=== PATIENT | female | born 1960 | race Two or more races ===

== ENCOUNTER → 2016-07-15 | Outpatient (CLI) | payer OTHER ==
[~2016-07-15] MED LIST: ALBU18HF INHALATION; AUG875 PO; CITA20TA6 PO; HYDR-902 PO; IBUP800T25 PO; IPRA3AMP HHN; LORA1TAB PO; MED4DP PO; TEMA15CA6 PO
--- NOTE | 2016-07-15 09:55 | RADRPT ---
PROCEDURE: XR Knee. CLINICAL INDICATION: Left knee pain TECHNIQUE: 4 views of the left knee are available for review. COMPARISON: None available FINDINGS: There is no evidence of acute fracture. There is severe medial femorotibial compartment osteoarthro sis with bone on bone articulation. There is mild to moderate lateral and patellofemoral compartmen t osteoarthrosis with marginal osteophyte formation. There is a small knee joint effusion. The sof t tissues are otherwise unremarkable. IMPRESSION: 1. No radiographic evidence of acute osseous abnormality noting tricompartmental osteoarthrosis, sev ere and predominant within the medial femorotibial compartment. RPTAT: UU .Suraj Fraga MD, MD Date Time Electronically viewed and signed by .Suraj Fraga MD, on 07/15/2016 09:55 .K/
== END | disposition home or self-care (01) ==
LOC: HKI 09:06
PROVIDERS: ATTEND Orthopaedic Surgery
DX: M25.562 Pain in left knee (principal); M17.12 Unilateral primary osteoarthritis, left knee; E66.01 Morbid (severe) obesity due to excess calories
CPT/HCPCS: 73564; Z7500; G0463

== ENCOUNTER → 2016-08-31 | Outpatient (CLI) | payer OTHER | END | disposition home or self-care (01) | LOC: HKI 10:26 | PROVIDERS: ATTEND Orthopaedic Surgery | DX: M25.562 Pain in left knee (principal); M17.12 Unilateral primary osteoarthritis, left knee; E66.01 Morbid (severe) obesity due to excess calories | CPT/HCPCS: 20610; J7327 ==

== ENCOUNTER 2016-10-30 18:54 | Emergency (ER) | payer OTHER ==
[~2016-10-30] VITALS: Ht 149.9 cm; Wt 120.0 kg
[2016-10-30 18:57] VITALS: Ht 149.9 cm; Wt 120.0 kg
[2016-10-30] MEDS ORDERED: ALBUTEROL 0.5% (NEB) 2.5 MG/0.5 ML AMP INH STA (19:18)
[2016-10-30] MEDS ORDERED: METHYLPREDNISOLONE 125 MG INJ IV STA (19:18)
[2016-10-30] MEDS: HYDROCODONE/APAP (10/325) TAB PO ONE ×2 (21:06→22:15)
[2016-10-30] MEDS ORDERED: PRED20TA PO (21:25)
[2016-10-30] MEDS ORDERED: ALBU8.5H3 INH (21:25)
[2016-10-30] MEDS ORDERED: AZIT250T94 PO (21:25)
--- NOTE | 2016-10-30 21:27 | RADRPT ---
PROCEDURE: XR Chest. CLINICAL INDICATION: Asthma exacerbation. TECHNIQUE: 2 frontal views of the chest. COMPARISON: Chest dated 03/20/2015 FINDINGS: Cardiomegaly. Pulmonary vascular markings are accentuated by patient body habitus and portable techn ique. No signs of pleural fluid or pneumothorax are seen. Old right rib fracture is seen. The osseou s structures and soft tissues are unremarkable. IMPRESSION: No evidence for active cardiopulmonary disease. RPTAT: UU Physician Clary Date Time Electronically viewed and signed by Physician Clary on 10/30/2016 21:27 RS/
[2016-10-30] MEDS ORDERED: ACETAMINOPHEN 325/HYDROC 7.5 15 ML CUP PO ONE (21:30)
--- NOTE | 2016-10-30 21:30 | ERD ---
ER Documentation Chief Complaint Date/Time DATE: 10/30/16 TIME: 21:26 Chief Complaint SOB x 4 days, pt has hx asthma, moderate distress audible wheezing HPI This is a 56-year-old female with a history of asthma complains of 4 days of cough with nonproductive sputum and having some asthma exacerbation today with wheezing. No chest pain no fever she has some mild nasal congestion no sneezing. She says she is having some increased work of breathing this afternoon that was not resolved with her usual breathing treatments. ROS All systems reviewed and are negative except as per history of present illness. Medications Home Meds Active Scripts Prednisone* (Prednisone*) 20 Mg Tab, 60 MG PO DAILY for 5 Days, TAB Prov:JOE AUGUST DO 10/30/16 Albuterol Sulfate* (Proair HFA*) 8.5 Gm Hfa.aer.ad, 2 PUFF INH Q4, #1 INHALER Prov:JOE AUGUST DO 10/30/16 Azithromycin* (Zithromax*) 250 Mg Tablet, 250 MG PO .GilbertPACK DIRECTED, #6 TAB TAKE 500 MG (2 TABS) THE FIRST DAY THEN 250 MG (1 TAB) DAYS 2-5 Prov:JOE AUGUST DO 10/30/16 Hydrocodone/Acetaminophen (Cameron 10-325 Tablet) 1 Each Tablet, 1 TAB PO Q6H Y for PAIN, #20 TAB Prov:DELMY LIMA PA-C 12/07/15 Ibuprofen* (Motrin*) 800 Mg Tab, 800 MG PO Q6, #30 TAB Prov:DELMY LIMA PA-C 12/07/15 Lorazepam* (Lorazepam*) 1 Mg Tablet, 1 MG PO Q8 Y for ANXIETY, #20 TAB Prov:JOE AUGUST DO 07/19/15 Methylprednisolone* (Medrol* DOSE PACK) 4 Mg/Dose-Pack Tab.ds.pk, 4 MG PO . DIRECTED, #1 PACKET Prov:CUONG SILVA 03/20/15 Ipratropium-Albuterol (Ipratropium-Albuterol) 3 Ml Nebu, 3 ML HHN Q6H RESP THERAPY for 14 Days Prov:CUONG SILVA 03/20/15 Amoxicillin-Clavulanate K* (Augmentin*) 875 Mg Tab, 875 MG PO BID for 5 Days, TAB Prov:CUONG SILVA 03/20/15 Reported Medications Citalopram Hydrobromide* (Citalopram Hydrobromide*) 20 Mg Tablet, 20 MG PO DAILY , #30 TAB 07/19/15 Albuterol Sulfate* (Ventolin HFA*) 18 Gm Hfa.aer.ad, 2 PUFF INHALATION Q4H, #1 INHALER 07/19/15 Temazepam* (Restoril*) 15 Mg Capsule, 15 MG PO HS Y for INSOMNIA, CAP 03/16/15 Allergies Allergies: Coded Allergies: No Known Allergy (Unverified , 12/07/15) PMhx/Soc History of Surgery: No Anesthesia Reaction: No Hx Neurological Disorder: No Hx Respiratory Disorders: Yes (asthma) Hx Cardiac Disorders: Yes (HTN) Hx Psychiatric Problems: Yes (DEPRESSION, ANXIETY) Hx Miscellaneous Medical Probl: Yes (OSTEOARTHRITIS ) Hx Alcohol Use: No Hx Substance Use: No Hx Tobacco Use: No Smoking Status: Never smoker FmHx Family History: No coronary disease Physical Exam Vitals Vital Signs Date Time Temp Pulse Resp B/P Pulse Ox O2 Delivery O2 Flow Rate FiO2 10/30/16 20:56 105 20 126/56 98 Room Air 10/30/16 19:35 91 22 100 21 10/30/16 18:57 98.4 95 32 463/93 98 Physical Exam Const: Well-developed, well-nourished Head: Atraumatic, normocephalic Eyes: Normal Conjunctiva, PERRLA, EOMI, normal sclera, no nystagmus ENT: Normal External Ears, Nose and Mouth, moist mucus membranes. Neck: Full range of motion. No meningismus, no lymphadenopathy. Resp: [Bilateral diffuse expiratory wheezes mild decrease in air movement no increased work of breathing cardio: Regular rate and rhythm, no murmurs, S1 S2 present Abd: Soft, non tender x 4, non distended. Normal bowel sounds, no guarding or rebound, no pulsitile abdominal masses or bruits Skin: No petechiae or rashes, no ecchymosis , no maculopapular rash Back: No midline or flank tenderness Ext: No cyanosis, or edema, FROM x 4, normal inspection, neurovascularly intact x 4 Neur: Awake and alert, STR 5/5 x 4, sensation intact x 4, no focal findings, cerebellum intact Psych: Normal Mood and Affect Results 24 hrs Current Medications Medications (Trade) Dose Ordered Sig/Yaa Route PRN Reason Start Time Stop Time Status Last Admin Dose Admin Albuterol (Proventil 0.5% (Neb)) 10 mg ONCE STAT INH 10/30/16 19:18 10/30/16 19:20 DC 10/30/16 19:34 Methylprednisolone Sodium Succinate (Solu-Medrol) 125 mg ONCE STAT IV 10/30/16 19:18 10/30/16 19:20 DC 10/30/16 19:24 Acetaminophen/ Hydrocodone Bitart (Cameron (10/325)) 1 tab ONCE ONCE PO 10/30/16 21:30 10/30/16 21:31 Acetaminophen/ Hydrocodone Bitart (Lortab Liq) 15 ml ONCE ONCE PO 10/30/16 21:30 10/30/16 21:31 10/30/16 21:11 Procedures/MDM PROCEDURE: XR Chest. CLINICAL INDICATION: Asthma exacerbation. TECHNIQUE: 2 frontal views of the chest. COMPARISON: Chest dated 03/20/2015 FINDINGS: Cardiomegaly. Pulmonary vascular markings are accentuated by patient body habitus and portable technique. No signs of pleural fluid or pneumothorax are seen. Old right rib fracture is seen. The osseous structures and soft tissues are unremarkable. IMPRESSION: No evidence for active cardiopulmonary disease. RPTAT: UU Physician Clary Date Time Electronically viewed and signed by Physician Clary on 10/30/2016 21:27 RS/ CC: JOE AUGUST DO Patient received breathing treatments, Solu-Medrol and is feeling much better. Sats are 98% room air lungs sounds are better with good air movement minimal to no wheezing No evidence of pneumonia on chest x-ray treat for asthmatic bronchitis Departure Diagnosis: Primary Impression: Asthmatic bronchitis Asthma severity: unspecified severity Asthma complication type: with acute exacerbation Qualified Code: J45.901 - Asthmatic bronchitis with acute exacerbation, unspecified asthma severity Condition: Stable Patient Instructions: What Is Bronchitis? JOE AUGUST DO Oct 30, 2016 21:30
[2016-10-30] MEDS ORDERED: HYDR15SO8 PO (22:25)
[2016-10-30 23:20] VITALS: BP 120/60; PULSE 89; RESP 18; TEMP 98
== END 2016-10-30 23:20 | disposition home or self-care (01) ==
LOC: E/R 18:54
DX: J45.901 Unspecified asthma with (acute) exacerbation (principal); I10 Essential (primary) hypertension
CPT/HCPCS: 71010; 93005; 94644; 96374; J2930; Z7502; Z7610

== ENCOUNTER 2017-02-19 19:01 | Emergency (ER) | END 2017-02-19 23:30 | disposition home or self-care (01) ==

== ENCOUNTER 2018-02-02 17:32 | Inpatient (IN) | payer OTHER ==
[~2018-02-02] VITALS: Ht 167.6 cm; Wt 96.6 kg
[~2018-02-02 17:32] MED LIST changes: +AMLO-147 PO; -AUG875 PO; -CITA20TA6 PO; +CYAN500T46 PO; -HYDR-902 PO; -IBUP800T25 PO; -IPRA3AMP HHN; +IPRA3AMP29 HHN; -LORA1TAB PO; -MED4DP PO; +MONT10TA24 PO; +SERT25TA83 PO
[2018-02-02] MEDS ORDERED: morphine 4 MG/ML VIAL IV STA ×2 (18:31→22:05)
[2018-02-02] MEDS ORDERED: ONDANSETRON 4 MG INJ IV STA (18:31)
[2018-02-02] MEDS ORDERED: SOD CHLORIDE 0.9% 1,000 ML IV STA (18:31)
[2018-02-02] MEDS ORDERED: PIPER-TAZO 3.375 GM IV (PMX) 100 ML IVPB STA (22:05)
[2018-02-02] MEDS ORDERED: VANCOMYCIN 1 GM (PMX) 250 ML IVPB STA (22:05)
--- NOTE | 2018-02-02 22:33 | ERD ---
ER Documentation Chief Complaint Chief Complaint Complains of bilater knee pain x3 days HPI 57-year-old female status post recent left knee surgery presenting with worsening left knee pain for the past 3 days. She has not noticed any increased swelling. She has been doing wound care as instructed by her physician. She is not putting any weight on that leg as instructed. She denies any fevers or chills but is having severe pain that is not improving with her medications. The pain is aching, throbbing, in her left knee and lower leg. Rates the pain as a 9 out of 10. No alleviating factors. Exacerbated by bending her knee. Surgery was done by Dr. Lee. CARLYLE All systems reviewed and are negative except as per history of present illness. Medications Home Meds Active Scripts Ipratropium-Albuterol (Ipratropium-Albuterol) 3 Ml Nebu, 3 ML HHN Q6H RESP THERAPY for 14 Days Prov:CUONG SILVA 03/20/15 Reported Medications Cyanocobalamin* (Vitamin B12*) 500 Mcg Tab, 5000 MCG PO DAILY, TAB 01/24/18 Sertraline Hcl* (Sertraline Hcl*) 25 Mg Tablet, 25 MG PO DAILY, #30 TAB 01/24/18 Montelukast Sodium* (Montelukast Sodium*) 10 Mg Tablet, 10 MG PO QHS, #30 TAB 01/24/18 Amlodipine Besylate* (Amlodipine Besylate*) 10 Mg Tablet, 10 MG PO DAILY, #30 TAB 01/24/18 Albuterol Sulfate* (Ventolin HFA*) 18 Gm Hfa.aer.ad, 2 PUFF INHALATION Q4H, #1 INHALER 07/19/15 Temazepam* (Restoril*) 15 Mg Capsule, 15 MG PO HS PRN for INSOMNIA, CAP 03/16/15 Allergies Allergies: Coded Allergies: No Known Allergy (Unverified , 12/07/15) PMhx/Soc History of Surgery: Yes (GASTRIC BYPASS 2017, L KNEE SURGERY, B BREAST REDUCTION) Anesthesia Reaction: No Hx Neurological Disorder: No Hx Respiratory Disorders: Yes (ASTHMA) Hx Cardiac Disorders: Yes (HTN) Hx Psychiatric Problems: No Hx Miscellaneous Medical Probl: Yes (asthma, HTN, depression, anxiety, obesity, L knee OA) Hx Alcohol Use: No Hx Substance Use: No Hx Tobacco Use: No Smoking Status: Never smoker FmHx Family History: No diabetes Physical Exam Vitals Vital Signs Date Temp Pulse Resp B/P (MAP) Pulse Ox O2 O2 Flow FiO2 Time Delivery Rate 02/02/18 97.5 84 21 156/72 98 Room Air 21:36 (100) 02/02/18 98.1 82 20 165/101 100 Room Air 21:27 (122) 02/02/18 98.3 62 20 138/63 96 17:37 (88) Physical Exam Const: No acute distress Head: Atraumatic Eyes: Normal Conjunctiva ENT: Normal External Ears, Nose and Mouth. Neck: Full range of motion. No meningismus. Resp: Clear to auscultation bilaterally Cardio: Regular rate and rhythm, no murmurs Abd: Soft, non tender, non distended. Normal bowel sounds Skin: No petechiae or rashes Back: No midline or flank tenderness Ext: No cyanosis, or edema. There is minimal left lower extremity pitting edema. The surgical scar appears well, healing well, no discharge or dehiscence. There is surrounding erythema that extends down to just above the left ankle. There is no calf tenderness. 2+ DP and PT pulses. Limited range of motion of the knee secondary to pain. No significant tenderness to palpation of the knee joint. Neur: Awake and alert Psych: Normal Mood and Affect Result Diagram: 02/02/18184902/02/181849 Results 24 hrs Laboratory Tests Test 02/02/18 18:50 White Blood Count 10.6 10^3/ul Red Blood Count 3.89 10^6/ul Hemoglobin 10.7 g/dl Hematocrit 33.0 % Mean Corpuscular Volume 84.8 fl Mean Corpuscular Hemoglobin 27.5 pg Mean Corpuscular Hemoglobin Concent 32.4 g/dl Red Cell Distribution Width 13.1 % Platelet Count 294 10^3/UL Mean Platelet Volume 9.9 fl Immature Granulocytes % 0.600 % Neutrophils % 73.7 % Lymphocytes % 16.0 % Monocytes % 8.1 % Eosinophils % 1.1 % Basophils % 0.5 % Nucleated Red Blood Cells % 0.0 /100WBC Immature Granulocytes # 0.060 10^3/ul Neutrophils # 7.8 10^3/ul Lymphocytes # 1.7 10^3/ul Monocytes # 0.9 10^3/ul Eosinophils # 0.1 10^3/ul Basophils # 0.1 10^3/ul Nucleated Red Blood Cells # 0.0 10^3/ul Erythrocyte Sedimentation Rate 60 mm/Hr Prothrombin Time 13.8 Sec Prothrombin Time Ratio 1.1 INR International Normalized Ratio 1.05 Activated Partial Thromboplast Time 35.1 Sec Sodium Level 139 mmol/L Potassium Level 3.9 mmol/L Chloride Level 99 mmol/L Carbon Dioxide Level 30 mmol/L Anion Gap 10 Blood Urea Nitrogen 13 mg/dl Creatinine 0.53 mg/dl Est Glomerular Filtrat Rate mL/min > 60 mL/min Glucose Level 100 mg/dl Calcium Level 9.1 mg/dl Total Bilirubin 0.5 mg/dl Direct Bilirubin 0.00 mg/dl Indirect Bilirubin 0.5 mg/dl Aspartate Amino Transf (AST/SGOT) 18 IU/L Alanine Aminotransferase (ALT/SGPT) 12 IU/L Alkaline Phosphatase 77 IU/L C-Reactive Protein 7.3 mg/dl Total Protein 7.2 g/dl Albumin 3.9 g/dl Globulin 3.30 g/dl Albumin/Globulin Ratio 1.18 Current Medications Medications Dose Sig/Yaa Start Time Status Last (Trade) Ordered Route PRN Stop Time Admin Dose Reason Admin Sodium 1,000 ml @ Q1H STAT 02/02/18 DC 02/02/18 Chloride 1,000 mls/hr IV 18:31 19:12 02/02/18 19:30 Morphine 4 mg ONCE STAT 02/02/18 DC 02/02/18 Sulfate IV 18:31 19:11 (morphine) 02/02/18 18:33 Ondansetron 4 mg ONCE STAT 02/02/18 DC 02/02/18 HCl (Zofran IV 18:31 19:11 Inj) 02/02/18 18:33 Morphine 4 mg ONCE STAT 02/02/18 DC 02/02/18 Sulfate IV 22:05 22:23 (morphine) 02/02/18 22:07 Vancomycin 250 ml @ ONCE STAT 02/02/18 HCl 125 mls/hr IVPB 22:05 02/03/18 00:04 Piperacillin 100 ml @ ONCE STAT 02/02/18 DC 02/02/18 Sod/ 200 mls/hr IVPB 22:05 22:23 Tazobactam 02/02/18 Sod 22:34 Ondansetron 4 mg BRIDGE ORDER 02/02/18 HCl (Zofran PRN IV 23:00 Inj) NAUSEA AND/OR 02/03/18 VOMITING 22:59 650 mg ER BRIDGE 02/02/18 Acetaminophen PRN PO MILD 23:00 (Tylenol PAIN(1-3)OR 02/03/18 Tab) ELEVATED TEMP 22:59 Procedures/MDM EMERGENT LABS AND DIAGNOSTIC STUDIES: Lab Results above were reviewed and interpreted by me. CBC: Mild anemia, no evidence of infection CMP: No evidence of electrolyte abnormality, renal failure, hypoglycemia, liver failure, or biliary obstruction ESR and CRP elevated, concerning for infection Radiology Results as interpreted by Radiology below were reviewed by Chlio Wilson MD: X-ray left knee shows intact hardware, no effusions or other abnormalities Left lower extremity venous ultrasound shows no evidence of DVT Initial Nursing notes reviewed. Previous Medical Records requested via the Electronic Health Record. EMERGENCY DEPARTMENT COURSE / MEDICAL DECISION MAKING: Patient is presenting with most likely postop cellulitis of the left lower extremity. I have a lower suspicion for septic joint. She is afebrile with stable vitals. Her labs did not show any evidence of leukocytosis. Her ESR and CRP are mildly elevated, likely secondary to her cellulitis. She was started on IV vancomycin and Zosyn. She will be admitted for observation for IV antibiot ics and improvement of her symptoms. Dr. lee was notified but is not concerned about septic joint at this time. Accepting Care Team: Current data and ongoing care discussed. Time: Time of admission Primary Provider: Dr. Paulino Consulting: Dr. Lee Outstanding Data: none Departure Diagnosis: Primary Impression: Cellulitis, wound, post-operative Additional Impression: Left leg cellulitis Condition: SERGE Alan MD Feb 02, 2018 22:33
[2018-02-02] MEDS ORDERED: ACETAMINOPHEN 325 MG TAB PO PRN (23:00)
[2018-02-02] MEDS ORDERED: ONDANSETRON 4 MG INJ IV PRN (23:00)
[2018-02-02] MEDS ORDERED: ASPI-535 PO (23:35)
[2018-02-02] MEDS ORDERED: TRAM50TA PO (23:35)
[2018-02-02] MEDS ORDERED: OXYC5CAP17 PO (23:35)
[2018-02-02] MEDS ORDERED: GABA100C14 PO (23:35)
[2018-02-02] MEDS ORDERED: CELE200C PO (23:39)
[2018-02-02 23:45] VITALS: BP 118/57; PULSE 87; RESP 18
--- NOTE | 2018-02-02 23:57 | HP ---
Date/Time of Note Date/Time of Note DATE: 02/02/18 TIME: 23:57 Assessment/Plan Lines/Catheters IV Catheter Type (from Nrsg): Saline Lock Assessment/Plan Assessment/Plan 1. Possible postop infection of left knee -Patient underwent left total knee arthroplasty for severe osteoarthritis on 01/24/18 here at [facility] -X-ray without acute findings -IV antibiotic -Awaiting Ortho eval -Pain management -Consider ID consult 2. Hypertension: Continue home meds 3. Asthma: No sign of acute exacerbation 4. Depression: Continue sertraline HPI/ROS Admit Date/Time Admit Date/Time Feb 02, 2018 at 22:32 Hx of Present Illness This is a 57-year-old female with a history of hypertension, asthma, depression, gastric bypass surgery who presented to ER complaining of left knee swelling and tenderness. She has a history of severe osteoarthritis of the left knee and underwent left total knee arthroplasty just a little over a week ago. Over the past 4 days or so, she has noticed a progressively worsening swelling of the left knee as well as tenderness in the area is also warm to touch. Here in the ER today, x-ray of the left knee shows no acute findings. Her vitals are been stable, afebrile and white count is 10,000. PMH/Family/Social Past Medical History Coded Allergies: No Known Allergy (Unverified , 02/02/18) Social History Smoking Status: Never smoker Exam/Review of Systems Vital Signs Vitals Vital Signs Date Temp Pulse Resp B/P (MAP) Pulse Ox O2 O2 Flow FiO2 Time Delivery Rate 02/02/18 87 18 156/84 99 Room Air 23:13 (108) 02/02/18 97.5 21:36 Medications Medications Current Medications Vancomycin HCl 250 ml @ 125 mls/hr ONCE STAT IVPB Last administered on 02/02/18at 23:28; Admin Dose 125 MLS/HR; Start 02/02/18 at 22:05; Stop 02/03/18 at 00:04 Ondansetron HCl (Zofran Inj) 4 mg BRIDGE ORDER PRN IV NAUSEA AND/OR VOMITING; Start 02/02/18 at 23:00; Stop 02/03/18 at 22:59 Acetaminophen (Tylenol Tab) 650 mg ER BRIDGE PRN PO MILD PAIN(1-3)OR ELEVATED TEMP; Start 02/02/18 at 23:00; Stop 02/03/18 at 22:59 Results Result Diagram: 02/02/18 1850 02/02/18 1850 Results 24 hrs Laboratory Tests Test 02/02/18 18:50 White Blood Count 10.6 Red Blood Count 3.89 L Hemoglobin 10.7 L Hematocrit 33.0 L Mean Corpuscular Volume 84.8 Mean Corpuscular Hemoglobin 27.5 L Mean Corpuscular Hemoglobin Concent 32.4 Red Cell Distribution Width 13.1 Platelet Count 294 # Mean Platelet Volume 9.9 Immature Granulocytes % 0.600 H Neutrophils % 73.7 Lymphocytes % 16.0 Monocytes % 8.1 Eosinophils % 1.1 Basophils % 0.5 Nucleated Red Blood Cells % 0.0 Immature Granulocytes # 0.060 H Neutrophils # 7.8 H Lymphocytes # 1.7 Monocytes # 0.9 Eosinophils # 0.1 Basophils # 0.1 Nucleated Red Blood Cells # 0.0 Erythrocyte Sedimentation Rate 60 H Prothrombin Time 13.8 Prothrombin Time Ratio 1.1 INR International Normalized Ratio 1.05 Activated Partial Thromboplast Time 35.1 H Sodium Level 139 Potassium Level 3.9 Chloride Level 99 Carbon Dioxide Level 30 Anion Gap 10 Blood Urea Nitrogen 13 Creatinine 0.53 Est Glomerular Filtrat Rate mL/min > 60 Glucose Level 100 Calcium Level 9.1 Total Bilirubin 0.5 Direct Bilirubin 0.00 Indirect Bilirubin 0.5 Aspartate Amino Transf (AST/SGOT) 18 Alanine Aminotransferase (ALT/SGPT) 12 L Alkaline Phosphatase 77 C-Reactive Protein 7.3 H Total Protein 7.2 Albumin 3.9 Globulin 3.30 H Albumin/Globulin Ratio 1.18 ANDRIA JONES MD Feb 02, 2018 23:57
[2018-02-03] MEDS ORDERED: traMADol 50 MG TAB PO PRN
[2018-02-03] MEDS ORDERED: NACL 0.9% 3 ML SYG IV SCH
[2018-02-03] MEDS ORDERED: ALBUTEROL HFA 8 GM INHALER INH PRN
[2018-02-03] MEDS ORDERED: VANCOMYCIN IV PER PHARMACY XX SCH
[2018-02-03 00:47] VITALS: Ht 167.6 cm; Wt 96.6 kg
--- NOTE | 2018-02-03 01:51 | NUR ---
2335 Pt received on unit via stretcher from emergency department. 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 Pt received aaox4 verbal and responsive under Dr. Paulino Vitals signs as follows BP 118/57 P 87 RR 18 T97.6 Pt denies pain at this time. Pt states chief complaints as left knee pain. Left knee and lower extremity red and swollen with pitting edema +2 large bruising and discoloration. Pt states she had surgery on 01/24/18 on her left knee her at [facility], but does not remember the name of the doctor. Pt reports history of Gastric Bypass in June of 2017 and breast reduction in 2007. 2345 No other significant findings or skin issues upon completion of body assessment. 0000 Admission questions completed, SCD applied, pt tolieted. Pt oriented to [facility] safety protocols including non skid socks, hourly rounding and the use of the bed alarm. Pt educated on the importance for calling for assistance when getting oob. Pt states she uses walker at home. Pt denies any further needs at this time. Nursing will continue to monitor. Addendum: 02/03/18 at 0702 by BHUPINDER NUNEZ RN 0300 Pt states tramadol and roxicodone make her nasueas and are not effective at treating her pain. Dr paulino contacted, order for morphine 3 mg q 3 given prn, but pt did not receive relief new orders for dilaudid mg q3 hrs recieved. Pt stated total relief of pain after 30 minutes. 0600 All scheduled medications administered w/o difficulty. Nursing will continue to monitor. 0700 Nursing will endorse to day shift to ensure continuity of care.
[2018-02-03] MEDS: ALBUTEROL/IPRATROPIUM (NEB) 3 ML AMP HHN SCH ×4 (02:00→19:41)
[2018-02-03 02:25] VITALS: BP 134/60; PULSE 77; RESP 18
[2018-02-03] MEDS ORDERED: morphine 4 MG/ML VIAL IV PRN (03:30)
[2018-02-03] MEDS: HYDROmorphONE 1 MG/ML SYG IV PRN ×4 (05:08→23:14)
[2018-02-03] MEDS: PIPER-TAZO 3.375 GM IV (PMX) 100 ML IVPB SCH ×3 (05:09→22:19)
[2018-02-03] MEDS: VANCOMYCIN 1.25 GM in SOD CHLORIDE 0.9% 250 ML IVPB SCH ×2 (06:44→14:43)
[2018-02-03 07:50] VITALS: BP 153/72; PULSE 70; RESP 16
[2018-02-03] MEDS: AMLODIPINE 10 MG TAB PO SCH (09:05)
[2018-02-03] MEDS: GABAPENTIN 100 MG CAP PO SCH ×3 (09:05→20:09)
[2018-02-03] MEDS: SERTRALINE 50 MG TAB PO SCH (09:05)
[2018-02-03 14:37] VITALS: BP 136/61; PULSE 76; RESP 16
--- NOTE | 2018-02-03 18:12 | PN ---
Date/Time of Note Date/Time of Note DATE: 02/03/18 TIME: 18:10 Assessment/Plan VTE Prophylaxis Risk score (from Ns)>0 risk: 9 SCD applied (from Ns): Yes SCD contraindicated: low risk/ambulating Pharmacological prophylaxis: NA/contraindicated Pharm contraindication: low risk/ambulating Lines/Catheters IV Catheter Type (from Nrs): Saline Lock Urinary Cath still in place: No Assessment/Plan Hospital Course Hospitalist coverage Assessment and plan 1. Left knee skin and soft tissue infection. Stable improved, continue empiric antibiotics. 2. Left total knee arthroplasty status, weightbearing PT pain control if okay with Ortho 3. Chronic asthma stable 4. Chronic hypertension 5. Chronic major depression 6. Debility Subjective 02/03: Was at home and doing well. Had home health and PT visits. Ambulating. Then over the last 4 days noted some swelling pain erythema over her joint. Denies any toxicity nausea vomiting fever. Today feels better than yesterday. Objective: Vital signs stable Physical exam No pallor adenopathy Regular no murmur gallop Clear Benign Lt knee: min erythema, no warmth, mild tenderness/ edema Exam/Review of Systems Vital Signs Vitals Vital Signs Date Temp Pulse Resp B/P (MAP) Pulse Ox O2 O2 Flow FiO2 Time Delivery Rate 02/03/18 98.3 76 16 136/61 94 14:37 (86) 02/03/18 21 10:18 02/03/18 Room Air 07:50 Intake and Output 02/02/18 02/02/18 02/03/18 1515:00 23:00 07:00 IntakeIntake Total 450 ml BalanceBalance 450 ml CALDERON LAYTON MD Feb 03, 2018 18:12
--- NOTE | 2018-02-03 18:31 | NUR ---
Pt. is alert, awake and verbally responsive. Respiration are crispin and non labored. Complain of left leg pain. Pain medication given as ordered. Tolerated well. Pt. is seen by MD during this shift per patient "Doctor came in and check my legs he said its getting better." No significant changes noted. Will endorse accordingly.
[2018-02-03] MEDS: LACTOBACILLUS RHAMNOSUS CAP PO SCH (20:09)
[2018-02-03] MEDS: MONTELUKAST 10 MG TAB PO SCH (20:09)
[2018-02-03 20:15] VITALS: BP 113/56; PULSE 70; RESP 18
[2018-02-03] MEDS: VANCOMYCIN 1.5 GM in SOD CHLORIDE 0.9% 250 ML IVPB SCH (23:39)
[2018-02-03] MEDS: DOCUSATE SODIUM 100 MG CAP PO PRN (23:44)
[2018-02-04] MEDS: ALBUTEROL/IPRATROPIUM (NEB) 3 ML AMP HHN SCH ×3 (01:09→14:00)
[2018-02-04 02:30] VITALS: BP 115/58; PULSE 68; RESP 18
[2018-02-04] MEDS: PIPER-TAZO 3.375 GM IV (PMX) 100 ML IVPB SCH ×3 (05:08→21:44)
[2018-02-04] MEDS: HYDROmorphONE 1 MG/ML SYG IV PRN ×4 (05:10→20:54)
[2018-02-04] MEDS: VANCOMYCIN 1.5 GM in SOD CHLORIDE 0.9% 250 ML IVPB SCH ×3 (06:06→23:08)
--- NOTE | 2018-02-04 06:34 | NUR ---
no acute changes. remained afebrile with vss. no episode of respiratory distress. antibiotics zosyn and vanco given as ordered. pt tolerated well with no a/r noted. also medicated with Dilaudid for pain. fall precautions continued. hourly rounding done. will continue to monitor and will endorse to next shift.
[2018-02-04 08:11] VITALS: BP 121/62; PULSE 66; RESP 17
--- NOTE | 2018-02-04 08:19 | NUR ---
Vancomycin per Rx Vancomycin trough = 8.5 (drawn at 21:51) Dose = 1.25 g q8h CC: Knee infection Other antibiotics: Zosyn WBC 9.2 BUN/Scr 12/0.53 A/P: Increase to Vancomycin 1.5 grams IVPB q8h. Check trough tomorrow. Pharmacy to follow.
[2018-02-04] MEDS: LACTOBACILLUS RHAMNOSUS CAP PO SCH ×2 (09:36→20:54)
[2018-02-04] MEDS: GABAPENTIN 100 MG CAP PO SCH ×3 (09:36→20:54)
[2018-02-04] MEDS: AMLODIPINE 10 MG TAB PO SCH (09:36)
[2018-02-04] MEDS: SERTRALINE 50 MG TAB PO SCH (09:36)
[2018-02-04] MEDS: ENOXAPARIN 40 MG/0.4 ML SYG SC SCH (09:38)
[2018-02-04 15:33] VITALS: BP 125/65; PULSE 67; RESP 17
--- NOTE | 2018-02-04 15:55 | PN ---
Date/Time of Note Date/Time of Note DATE: 02/04/18 TIME: 15:53 Assessment/Plan VTE Prophylaxis Risk score (from Nsg)>0 risk: 3 SCD applied (from Ns): No SCD contraindicated: low risk/ambulating Pharmacological prophylaxis: LMWH Lines/Catheters IV Catheter Type (from Nrsg): Saline Lock Urinary Cath still in place: No Assessment/Plan Hospital Course Hospitalist coverage A/P 1. Left knee skin and soft tissue infection. Stable improved, cont empiric antibiotics. May be home on Keflex or Bactrim if okay with Ortho. 2. Left tka status, weightbearing? PT/ pain control, if ok w Ortho 3. Chronic asthma stable 4. Chronic hypertension 5. Chronic major depression 6. Debility Subjective 02/03: Was at home and doing well. Had home health and PT visits. Ambulating. Then over the last 4 days noted some swelling pain erythema over her joint. Denies any toxicity nausea vomiting fever. Today feels better than yesterday. 02/04: No fever diarrhea. Pain improved. Participated with PT. Awaiting orthopedic opinion Objective: Vital signs stable Physical exam No pallor Reg no mrg Clear Benign Lt knee: min erythema, no warmth, mild tenderness/ edema Exam/Review of Systems Vital Signs Vitals Vital Signs Date Temp Pulse Resp B/P (MAP) Pulse Ox O2 O2 Flow FiO2 Time Delivery Rate 02/04/18 98.1 67 17 125/65 94 Room Air 15:33 (85) 02/03/18 21 10:18 Intake and Output 02/03/18 02/03/18 02/04/18 1515:00 23:00 07:00 IntakeIntake Total 900 ml 600 ml 1178 ml BalanceBalance 900 ml 600 ml 1178 ml CALDERON LAYTON MD Feb 04, 2018 15:55
[2018-02-04] MEDS ORDERED: AL HYDROX/MG HYDROX/SIMETH 30 ML CUP PO PRN (16:00)
[2018-02-04] MEDS ORDERED: ALBUTEROL/IPRATROPIUM (NEB) 3 ML AMP HHN PRN (16:00)
[2018-02-04] MEDS ORDERED: ACETAMINOPHEN 325 MG TAB PO PRN (16:00)
[2018-02-04] MEDS: FAMOTIDINE 20 MG TAB PO SCH ×2 (17:58→20:54)
--- NOTE | 2018-02-04 19:00 | NUR ---
Patient on bed rest, alert and oriented, vital signs stable. Denies pain at this time. Patient out of bed with assist to the bathroom using the walker. Continue with IV antibiotics for Left knee infection, and pain medication PRN.
[2018-02-04 20:11] VITALS: BP 138/67; PULSE 73; RESP 16
[2018-02-04] MEDS: MONTELUKAST 10 MG TAB PO SCH (20:54)
[2018-02-05] MEDS: HYDROmorphONE 1 MG/ML SYG IV PRN ×3 (02:09→13:54)
[2018-02-05 02:31] VITALS: BP 125/60; PULSE 73; RESP 16
[2018-02-05] MEDS: PIPER-TAZO 3.375 GM IV (PMX) 100 ML IVPB SCH ×3 (05:32→21:43)
[2018-02-05 08:17] VITALS: BP 149/70; PULSE 75; RESP 18
[2018-02-05] MEDS: FAMOTIDINE 20 MG TAB PO SCH ×2 (08:25→20:55)
[2018-02-05] MEDS: GABAPENTIN 100 MG CAP PO SCH ×3 (08:25→20:55)
[2018-02-05] MEDS: LACTOBACILLUS RHAMNOSUS CAP PO SCH ×2 (08:25→20:56)
[2018-02-05] MEDS: AMLODIPINE 10 MG TAB PO SCH (08:26)
[2018-02-05] MEDS: SERTRALINE 50 MG TAB PO SCH (08:26)
[2018-02-05] MEDS: VANCOMYCIN 1.5 GM in SOD CHLORIDE 0.9% 250 ML IVPB SCH (08:27)
[2018-02-05] MEDS: ENOXAPARIN 40 MG/0.4 ML SYG SC SCH (08:27)
--- NOTE | 2018-02-05 11:32 | PN ---
Date/Time of Note Date/Time of Note DATE: 02/05/18 TIME: 11:32 Assessment/Plan VTE Prophylaxis Risk score (from Ns)>0 risk: 3 SCD applied (from Ns): No SCD contraindicated: other Pharmacological prophylaxis: LMWH Lines/Catheters IV Catheter Type (from [facility] Saline Lock Urinary Cath still in place: No Assessment/Plan Hospital Course SUBJECTIVE: Pain at the left knee well controlled. OBJECTIVE: Physical Exam General: Morbidly obese 57 year-old female lying in bed in no apparent distress. HEENT: Normocephalic, atraumatic. Eyes: Anicteric sclerae, conjunctivae clear. ENT: Nasal septum midline, oral mucosa moist. Neck supple, no JVD noticed. Respiratory: Bilaterally clear breath sounds. No use of accessory muscles of respiration. No adventitious breath sounds. Cardiovascular: S1, S2 heard. Regular rate and rhythm. Abdomen: Soft, nontender, and nondistended. Bowel sounds positive in all 4 quadrants. Genitourinary: Deferred. Extremities: No cyanosis, no clubbing, no edema. Peripheral pulses palpable. Left knee surgical dressing with warmth in the surrounding skin. Neurologic: Cranial nerves II through XII grossly intact. The patient is awake, alert, and oriented. Labs & Vitals per chart ASSESSMENT & PLAN 57-year-old female with history of hypertension, asthma, depression, and obesity status post gastric bypass surgery who recently had a left total knee arth roplasty on 01/24/2018. The patient came back to the hospital because of left knee swelling and tenderness, who was admitted to inpatient setting for further treatment and evaluation. 1. Left knee cellulitis at the site of left knee arthroplasty. -Continue antibiotics. -Continue pain control. -Await orthopedic surgery recommendations. 2. Asthma. -Continue inhaled bronchodilators as needed for any active bronchospasms. 3. Essential hypertension. -Continue home antihypertensives. 4. Depression. -Continue SSRIs. 5. Anxiety disorder. -Continue as needed anxiolytics. 6. Fluids, electrolytes, and nutrition. -Regular diet. 7. DVT prophylaxis. -Continue Lovenox. 8. Plan. -Continue antimicrobials. -Await clinical improvement. The patient was seen in collaboration with Dr. Stevens. Exam/Review of Systems Vital Signs Vitals Vital Signs Date Temp Pulse Resp B/P (MAP) Pulse Ox O2 O2 Flow FiO2 Time Delivery Rate 02/05/18 98.3 75 18 149/70 92 08:17 (96) 02/04/18 Room Air 15:33 02/03/18 21 10:18 Intake and Output 02/04/18 02/04/18 02/05/18 1515:00 23:00 07:00 IntakeIntake Total 267 ml 750 ml 350 ml BalanceBalance 267 ml 750 ml 350 ml DAVID RO NP Feb 05, 2018 11:32
[2018-02-05] MEDS: ONDANSETRON 4 MG INJ IV PRN (13:01)
--- NOTE | 2018-02-05 13:19 | CONS ---
DATE OF ADMISSION: 02/03/2018 DATE OF CONSULTATION: 02/05/2018 TYPE OF CONSULTATION: Infectious disease. REASON FOR CONSULTATION: Antibiotic management. HISTORY OF PRESENT ILLNESS: Sofia Metzger is a 57-year-old female who comes in with postop infection of the left knee and is being seen now for antibiotic management. Her past problems include: 1. Hypertension. 2. Asthma. 3. Depression. 4. Gastric bypass surgery. 5. Left knee arthroplasty. The patient presents to the emergency room complaining of left knee swelling and tenderness. She has a history of osteoarthritis of left knee and she underwent left total knee arthroplasty over a week ago. Four days prior to admission, she noticed progressively worsening swelling of the left knee as well as tenderness in the area which is also warm to the touch. In the emergency room, her x-ray of the left knee showed no acute findings. Her white count is 10.6, H and H of 10.7 and 33, platelet co unt 294,000. BUN and creatinine is 13/0.53, glucose of 100. The patient was started on vancomycin. HOSPITAL COURSE: She was seen by the hospitalist, Dr. Layton, who noted left knee skin and soft tissue infection, stable, improved with empiric antibiotics, left knee total arthroplasty, history o f chronic asthma, hypertension, major depression and debility. On 02/04/2018, Dr. Layton felt t hat the knee was improving and she may go home on Bactrim and Keflex, but was awaiting orthopedist wi th regard to management. Today, the patient continues to have left knee erythema with warmth from th e surrounding skin. PAST MEDICAL HISTORY: Operations as outlined. FAMILY HISTORY: Noncontributory. SOCIAL HISTORY: She does not smoke, drink or abuse drugs. ALLERGIES: NONE TO PENICILLIN, SULFA OR FOODS. MEDICATIONS: Per chart. REVIEW OF SYSTEMS: Noncontributory. PHYSICAL EXAMINATION: GENERAL: The patient is a morbidly obese 57-year-old female lying in bed in no acute distress. VITAL SIGNS: Stable. She is afebrile. SKIN: Without generalized rash. HEENT: Within normal limits. NECK: Supple. LYMPH NODES: None palpable. CHEST: Decreased breath sounds at the bases. HEART: Without murmur or gallop. ABDOMEN: Soft, nontender without organosplenomegaly or masses. EXTREMITIES: Without cyanosis, clubbing or edema. RECTAL AND GENITAL: Exam is deferred. EXTREMITIES: No cyanosis, clubbing or edema. She has at this point minimal swelling and erythema, b ut she still has warmth over the knee and the dressing itself is dry. IMPRESSION AND PLAN: I would continue her on vancomycin. She is also on Zosyn. I will await the op inion of the orthopedist as well. We may be able to send her home shortly on Bactrim and possibly Le vaquin or as noted Keflex. I will dictate my findings to the hospitalist. Dictated By: ZAIRA BEY MD, JD/LITA Conf#: [id number] DID#: [id number] CC: ANDRIA JONES MD; CALDERON LAYTON MD;*End*
[2018-02-05 14:58] VITALS: BP 128/58; PULSE 76; RESP 19
--- NOTE | 2018-02-05 16:55 | NUR ---
NURSE NOTES: Patient alert and oriented x 4, able to make needs known remained stable throughout the shift with no acute changes noted. Vital signs WNL, afebrile. All due medications were given, tolerated well. No wound care orders, elevated heels with pillows. No changes in skin upon assessment. IV patent and intact. Patient was nauseated x 1 episode, medicated with Zofran, relieved. assessed and reassessed for pain, medicated with pain medications as ordered. Safety precautions observed, hourly rounding done, bed alarm and bed brakes on for safety. Call light and telephone within reach at all times. Encouraged to use call light and telephone whenever assistance is needed. Will continue to monitor. Will endorse accordingly to next shift for continuity of care.
[2018-02-05] MEDS: DOCUSATE SODIUM 100 MG CAP PO PRN (17:37)
[2018-02-05 19:50] VITALS: BP 146/69; PULSE 69; RESP 18
[2018-02-05] MEDS: MONTELUKAST 10 MG TAB PO SCH (20:56)
[2018-02-06] MEDS: HYDROmorphONE 1 MG/ML SYG IV PRN ×3 (00:09→23:33)
[2018-02-06 02:25] VITALS: BP 122/57; PULSE 72; RESP 18
[2018-02-06] MEDS: PIPER-TAZO 3.375 GM IV (PMX) 100 ML IVPB SCH ×2 (06:13→13:10)
[2018-02-06 07:55] VITALS: BP 116/63; PULSE 91; RESP 18
[2018-02-06] MEDS: AMLODIPINE 10 MG TAB PO SCH (08:07)
[2018-02-06] MEDS: ENOXAPARIN 40 MG/0.4 ML SYG SC SCH (08:07)
[2018-02-06] MEDS: GABAPENTIN 100 MG CAP PO SCH ×3 (08:08→20:49)
[2018-02-06] MEDS: FAMOTIDINE 20 MG TAB PO SCH ×2 (08:08→20:49)
[2018-02-06] MEDS: LACTOBACILLUS RHAMNOSUS CAP PO SCH ×2 (08:08→20:49)
[2018-02-06] MEDS: SERTRALINE 50 MG TAB PO SCH (08:08)
--- NOTE | 2018-02-06 10:48 | NUR ---
Left message to Dr. Velazco's office for ortho consult follow up.
[2018-02-06 14:33] VITALS: BP 115/59; PULSE 73; RESP 16
--- NOTE | 2018-02-06 14:48 | CONS ---
Date/Time of Note Date/Time of Note DATE: 02/06/18 TIME: 14:48 Assessment/Plan Assessment/Plan Chief Complaint/Hosp Course Patient is awake and looks comfortable states that she feels better she has less pain in her left knee. No fevers overnight. WBC 11 H&H 9.3 and 29.1 platelets 268 neutrophils 74.5 BUN 19 creatinine 2.84 Antimicrobials: Vancomycin Zosyn Physical examination: Morbidly obese well-developed middle-aged woman who is alert in no distress head atraumatic normocephalic sclera nonicteric neck is obese chest rise symmetrical breath sounds clear heart: S1-S2 abdomen soft bowel sounds present extremities with left knee swelling, dressing clean dry and intact Assessment: 1. Postoperative superficial cellulitis of left knee 2. Acute renal failure 3. Morbid obesity 4. Hypertension Plan: Left knee looks better, we are going to change antibiotics to Rocephin and doxycycline, follow renal function closely Consultation Date/Type/Reason Admit Date/Time Feb 03, 2018 at 18:13 Initial Consult Date Type of Consult id Exam/Review of Systems Vital Signs Vitals Vital Signs Date Temp Pulse Resp B/P (MAP) Pulse Ox O2 O2 Flow FiO2 Time Delivery Rate 02/06/18 98.0 73 16 115/59 96 14:33 (77) 02/04/18 Room Air 15:33 02/03/18 21 10:18 Intake and Output 02/05/18 02/05/18 02/06/18 1515:00 23:00 07:00 IntakeIntake Total 580 ml 340 ml 650 ml BalanceBalance 580 ml 340 ml 650 ml Medications Medications Current Medications IV Flush (NS 3 ml) 3 ml PER PROTOCOL IV ; Start 02/03/18 at 00:00 Ondansetron HCl (Zofran Inj) 4 mg Q6H PRN IV NAUSEA AND/OR VOMITING Last administered on 02/05/18at 13:01; Admin Dose 4 MG; Start 02/03/18 at 00:00 Albuterol (Ventolin Hfa) 2 puff Q4H RESP THERAPY PRN INH SHORTNESS OF BREATH; Start 02/03/18 at 00:00 Amlodipine Besylate (Norvasc) 10 mg DAILY PO Last administered on 02/06/18at 08:07; Admin Dose 10 MG; Start 02/03/18 at 09:00 Gabapentin (Neurontin) 100 mg TID PO Last administered on 02/06/18 13:10; Admin Dose 100 MG; Start 02/03/18 at 09:00 Montelukast Sodium (Singulair) 10 mg QHS PO Last administered on 02/05/18 20:56; Admin Dose 10 MG; Start 02/03/18 at 21:00 Oxycodone HCl (Roxicodone) 5 mg Q4H PRN PO PAIN; Start 02/03/18 at 00:00 Sertraline HCl (Zoloft) 25 mg DAILY PO Last administered on 02/06/18 08:08; Admin Dose 25 MG; Start 02/03/18 at 09:00 Tramadol HCl (Ultram) 50 mg Q6H PRN PO PAIN; Start 02/03/18 at 00:00 Zolpidem Tartrate (Ambien) 5 mg HS PRN PO INSOMNIA; Start 02/03/18 at 07:00 Vancomycin HCl (Vanco Iv Per Pharmacy) VANCOMYCIN PER PHARMACY PER PROTOCOL XX ; Start 02/03/18 at 00:00 Morphine Sulfate (morphine) 3 mg Q4H PRN IV SEVERE PAIN LEVEL 7-10 Last administered on 02/03/18 03:17; Admin Dose 3 MG; Start 02/03/18 at 03:30 Hydromorphone HCl (Dilaudid) 1 mg Q3H PRN IV SEVERE PAIN LEVEL 7-10 Last administered on 02/06/18 06:17; Admin Dose 1 MG; Start 02/03/18 at 05:00 Piperacillin Sod/ Tazobactam Sod 100 ml @ 200 mls/hr Q8 IVPB Last administered on 02/06/18 13:10; Admin Dose 200 MLS/HR; Start 02/03/18 at 22:00 Lactobacillus Acidophilus/ Rhamnosus (Culturelle) 1 cap BID PO Last adm inistered on 02/06/18 08:08; Admin Dose 1 CAP; Start 02/03/18 at 21:00 Enoxaparin Sodium (Lovenox) 40 mg DAILY SC Last administered on 02/06/18 08:07; Admin Dose 40 MG; Start 02/04/18 at 09:00 Docusate Sodium (Colace) 100 mg BID PRN PO CONSTIPATION Last administered on 02/05/18 17:37; Admin Dose 100 MG; Start 02/03/18 at 17:00 Vancomycin HCl 1.5 gm/Sodium Chloride 250 ml @ 83.333 mls/ hr Q8H IVPB Last administered on 02/04/18at 23:08; Admin Dose 83.333 MLS/HR; Start 02/03/18 at 23:00; Status Hold Albuterol/ Ipratropium (Duoneb) 3 ml Q6H RESP THERAPY PRN HHN SHORTNESS OF BREATH; Start 02/04/18 at 16:00 Acetaminophen (Tylenol Tab) 650 mg Q4H PRN PO MILD PAIN(1-3)OR ELEVATED TEMP; Start 02/04/18 at 16:00 Famotidine (Pepcid) 20 mg BID PO Last administered on 02/06/18at 08:08; Admin Dose 20 MG; Start 02/04/18 at 16:00 Al Hydrox/Mg Hydrox/Simethicone (Mag-Al Plus) 30 ml Q6H PRN PO GASTROINTESTINAL UPSET; Start 02/04/18 at 16:00 ARCENIO CACERES NP Feb 06, 2018 14:48
[2018-02-06] MEDS: CEFTRIAXONE 1 GM/50 ML (PMX) 50 ML IVPB SCH (15:02)
--- NOTE | 2018-02-06 15:07 | PN ---
Date/Time of Note Date/Time of Note DATE: 02/06/18 TIME: 15:05 Assessment/Plan VTE Prophylaxis Risk score (from Ns)>0 risk: 4 SCD applied (from Ns): No SCD contraindicated: other Pharmacological prophylaxis: LMWH Lines/Catheters [facility] Saline Lock Urinary Cath still in place: No Assessment/Plan Hospital Course SUBJECTIVE: Pain at the left knee well controlled. OBJECTIVE: Physical Exam General: Morbidly obese 57 year-old female lying in bed in no apparent distress. HEENT: Normocephalic, atraumatic. Eyes: Anicteric sclerae, conjunctivae clear. ENT: Nasal septum midline, oral mucosa moist. Neck supple, no JVD noticed. Respiratory: Bilaterally clear breath sounds. No use of accessory muscles of respiration. No adventitious breath sounds. Cardiovascular: S1, S2 heard. Regular rate and rhythm. Abdomen: Soft, nontender, and nondistended. Bowel sounds positive in all 4 quadrants. Genitourinary: Deferred. Extremities: No cyanosis, no clubbing, no edema. Peripheral pulses palpable. Left knee surgical dressing with warmth in the surrounding skin. Neurologic: Cranial nerves II through XII grossly intact. The patient is awake, alert, and oriented. Labs & Vitals per chart ASSESSMENT & PLAN 57-year-old female with history of hypertension, asthma, depression, and obesity status post gastric bypass surgery who recently had a left total knee arthroplasty on 01/24/2018. The patient came back to the hospital because of left knee swelling and tenderness, who was admitted to inpatient setting for further treatment and evaluation. 1. Left knee cellulitis at the site of left knee arthroplasty. -Continue antibiotics. -Continue pain control. -Await orthopedic surgery recommendations. 2. Asthma. -Continue inhaled bronchodilators as needed for any active bronchospasms. 3. Essential hypertension. -Continue home antihypertensives. 4. Depression. -Continue SSRIs. 5. Anxiety disorder. -Continue as needed anxiolytics. 6. Acute kidney injury. -Nonoliguric. -Nephrotoxic drug (vancomycin) has been discontinued. -Renally dose medications. -Gentle IV hydration. 7. Fluids, electrolytes, and nutrition. -Regular diet. 8. DVT prophylaxis. -Renal dose of Lovenox. 9. Plan. -Continue antimicrobials. -Await clinical improvement. -Renal dose medications. The patient was seen in collaboration with Dr. Stevens. Result Diagram: 02/06/1818 02/06/18 0518 Results 24hrs Laboratory Tests Test 02/06/18 05:18 White Blood Count 11.0 H Red Blood Count 3.42 L Hemoglobin 9.3 L Hematocrit 29.1 L Mean Corpuscular Volume 85.1 Mean Corpuscular Hemoglobin 27.2 L Mean Corpuscular Hemoglobin Concent 32.0 Red Cell Distribution Width 13.5 Platelet Count 268 Mean Platelet Volume 9.7 Immature Granulocytes % 0.400 Neutrophils % 74.5 Lymphocytes % 13.7 L Monocytes % 9.4 Eosinophils % 1.5 Basophils % 0.5 Nucleated Red Blood Cells % 0.0 Immature Granulocytes # 0.040 H Neutrophils # 8.2 H Lymphocytes # 1.5 Monocytes # 1.0 H Eosinophils # 0.2 Basophils # 0.1 Nucleated Red Blood Cells # 0.0 Sodium Level 141 Potassium Level 4.1 Chloride Level 101 Carbon Dioxide Level 31 Anion Gap 9 Blood Urea Nitrogen 19 # Creatinine 2.84 #H Est Glomerular Filtrat Rate mL/min 17 L Glucose Level 94 Calcium Level 8.8 Phosphorus Level 5.2 H Magnesium Level 2.2 Random Vancomycin Level 21.8 Exam/Review of Systems Vital Signs Vitals Vital Signs Date Temp Pulse Resp B/P (MAP) Pulse Ox O2 O2 Flow FiO2 Time Delivery Rate 02/06/18 98.0 73 16 115/59 96 14:33 (77) 02/04/18 Room Air 15:33 02/03/18 21 10:18 Intake and Output 02/05/18 02/05/18 02/06/18 1515:00 23:00 07:00 IntakeIntake Total 580 ml 340 ml 650 ml BalanceBalance 580 ml 340 ml 650 ml Medications Medications Current Medications IV Flush (NS 3 ml) 3 ml PER PROTOCOL IV ; Start 02/03/18 at 00:00 Ondansetron HCl (Zofran Inj) 4 mg Q6H PRN IV NAUSEA AND/OR VOMITING Last administered on 02/05/18at 13:01; Admin Dose 4 MG; Start 02/03/18 at 00:00 Albuterol (Ventolin Hfa) 2 puff Q4H RESP THERAPY PRN INH SHORTNESS OF BREATH; Start 02/03/18 at 00:00 Amlodipine Besylate (Norvasc) 10 mg DAILY PO Last administered on 02/06/18 08:07; Admin Dose 10 MG; Start 02/03/18 at 09:00 Gabapentin (Neurontin) 100 mg TID PO Last administered on 02/06/18 13:10; Admin Dose 100 MG; Start 02/03/18 at 09:00 Montelukast Sodium (Singulair) 10 mg QHS PO Last administered on 02/05/18 20:56; Admin Dose 10 MG; Start 02/03/18 at 21:00 Oxycodone HCl (Roxicodone) 5 mg Q4H PRN PO PAIN; Start 02/03/18 at 00:00 Sertraline HCl (Zoloft) 25 mg DAILY PO Last administered on 02/06/18 08:08; Admin Dose 25 MG; Start 02/03/18 at 09:00 Tramadol HCl (Ultram) 50 mg Q6H PRN PO PAIN; Start 02/03/18 at 00:00 Zolpidem Tartrate (Ambien) 5 mg HS PRN PO INSOMNIA; Start 02/03/18 at 07:00 Morphine Sulfate (morphine) 3 mg Q4H PRN IV SEVERE PAIN LEVEL 7-10 Last administered on 02/03/18 03:17; Admin Dose 3 MG; Start 02/03/18 at 03:30 Hydromorphone HCl (Dilaudid) 1 mg Q3H PRN IV SEVERE PAIN LEVEL 7-10 Last administered on 02/06/18 06:17; Admin Dose 1 MG; Start 02/03/18 at 05:00 Lactobacillus Acidophilus/ Rhamnosus (Culturelle) 1 cap BID PO Last administered on 02/06/18 08:08; Admin Dose 1 CAP; Start 02/03/18 at 21:00 Enoxaparin Sodium (Lovenox) 40 mg DAILY SC Last administered on 02/06/18 08:07; Admin Dose 40 MG; Start 02/04/18 at 09:00 Docusate Sodium (Colace) 100 mg BID PRN PO CONSTIPATION Last administered on 02/05/18 17:37; Admin Dose 100 MG; Start 02/03/18 at 17:00 Albuterol/ Ipratropium (Duoneb) 3 ml Q6H RESP THERAPY PRN HHN SHORTNESS OF BREATH; Start 02/04/18 at 16:00 Acetaminophen (Tylenol Tab) 650 mg Q4H PRN PO MILD PAIN(1-3)OR ELEVATED TEMP; Start 02/04/18 at 16:00 Famotidine (Pepcid) 20 mg BID PO Last administered on 02/06/18at 08:08; Admin Dose 20 MG; Start 02/04/18 at 16:00 Al Hydrox/Mg Hydrox/Simethicone (Mag-Al Plus) 30 ml Q6H PRN PO GASTROINTESTINAL UPSET; Start 02/04/18 at 16:00 Doxycycline Hyclate 100 mg/ Sodium Chloride 250 ml @ 250 mls/hr Q12 IVPB ; Start 02/06/18 at 21:00 Ceftriaxone Sodium 50 ml @ 100 mls/hr Q24H IVPB ; Start 02/06/18 at 15:00 DAVID RO NP Feb 06, 2018 15:07
[2018-02-06] MEDS: SOD CHLORIDE 0.9% 1,000 ML IV SCH (15:09)
[2018-02-06] MEDS: ONDANSETRON 4 MG INJ IV PRN (17:57)
--- NOTE | 2018-02-06 18:26 | NUR ---
NURSE NOTE: No acute changes. Pt is AXOX4. No complaints of discomfort at this time. Pt complained that she is nauseous. Pt given her zofran PRN. Pt ambulates with her walker. АННА Dhillon aware regarding elevated creatinine and also that surgeon has not come by and seen the patient yet. Bed alarm on. call light within reach.
[2018-02-06 19:50] VITALS: BP 127/59; PULSE 71; RESP 17
[2018-02-06] MEDS: DOXYCYCLINE 100 MG in SOD CHLORIDE 0.9% 250 ML IVPB SCH (20:48)
[2018-02-06] MEDS: MONTELUKAST 10 MG TAB PO SCH (20:49)
[2018-02-06] MEDS: DOCUSATE SODIUM 100 MG CAP PO PRN (20:54)
[2018-02-07 02:28] VITALS: BP 121/60; PULSE 73; RESP 18; RESP 73
[2018-02-07 07:54] VITALS: BP 155/70; PULSE 79; RESP 16
[2018-02-07] MEDS: SOD CHLORIDE 0.9% 1,000 ML IV SCH (08:00)
[2018-02-07] MEDS: DOXYCYCLINE 100 MG in SOD CHLORIDE 0.9% 250 ML IVPB SCH ×2 (08:22→21:45)
[2018-02-07] MEDS: ONDANSETRON 4 MG INJ IV PRN ×2 (08:25→20:58)
[2018-02-07] MEDS: GABAPENTIN 100 MG CAP PO SCH ×3 (10:56→20:54)
[2018-02-07] MEDS: FAMOTIDINE 20 MG TAB PO SCH ×2 (10:56→20:54)
[2018-02-07] MEDS: AMLODIPINE 10 MG TAB PO SCH (10:56)
[2018-02-07] MEDS: LACTOBACILLUS RHAMNOSUS CAP PO SCH ×2 (10:57→20:54)
[2018-02-07] MEDS: SERTRALINE 50 MG TAB PO SCH (10:57)
[2018-02-07] MEDS: ENOXAPARIN 30 MG/0.3 ML SYG SC SCH (10:59)
--- NOTE | 2018-02-07 12:48 | CONS ---
Date/Time of Note Date/Time of Note DATE: 02/07/18 TIME: 12:46 Assessment/Plan Assessment/Plan Hospital Course Subjective: Patient is alert, feels better looks comfortable no fevers overnight, no urinary retention, hematuria, dysuria WBC 11.3 platelets 263 neutrophils 77.3 BUN 25 creatinine 4.26 Renal ultrasound revealed no hydronephrosis. Minimally increased echogenicity of both kidneys suggesting medical renal disease Antimicrobials: Doxycycline Rocephin Physical examination: Morbidly obese well-developed middle-aged woman who is alert in no distress head atraumatic normocephalic sclera nonicteric neck is obese chest rise symmetrical breath sounds clear heart: S1-S2 abdomen soft bowel sounds present extremities with left knee swelling, dressing clean dry and intact Assessment: 1. Resolving superficial cellulitis of left knee 2. Acute renal failure 3. Morbid obesity 4. Hypertension Plan: Left knee continues to look better, kidney function is much worse, will order bladder scan to make sure she is not retaining Result Diagram: 02/07/18 0536 02/07/18 0536 Results 24hrs Laboratory Tests Test 02/07/18 05:36 02/07/18 11:04 White Blood Count 11.3 H Red Blood Count 3.22 L Hemoglobin 8.8 L Hematocrit 27.7 L Mean Corpuscular Volume 86.0 Mean Corpuscular Hemoglobin 27.3 L Mean Corpuscular Hemoglobin Concent 31.8 L Red Cell Distribution Width 13.4 Platelet Count 263 Mean Platelet Volume 9.7 Immature Granulocytes % 0.400 Neutrophils % 77.3 H Lymphocytes % 11.6 L Monocytes % 9.2 Eosinophils % 1.1 Basophils % 0.4 Nucleated Red Blood Cells % 0.0 Immature Granulocytes # 0.040 H Neutrophils # 8.8 H Lymphocytes # 1.3 Monocytes # 1.0 H Eosinophils # 0.1 Basophils # 0.0 Nucleated Red Blood Cells # 0.0 Sodium Level 142 Potassium Level 4.0 Chloride Level 103 Carbon Dioxide Level 27 Anion Gap 12 Blood Urea Nitrogen 25 H Creatinine 4.26 #H Est Glomerular Filtrat Rate mL/min 11 L Glucose Level 89 Calcium Level 8.4 Phosphorus Level 5.7 H Magnesium Level 2.2 Random Vancomycin Level 17.6 Consultation Date/Type/Reason Admit Date/Time Feb 03, 2018 at 18:13 Initial Consult Date Type of Consult id Exam/Review of Systems Vital Signs Vitals Vital Signs Date Temp Pulse Resp B/P (MAP) Pulse Ox O2 O2 Flow FiO2 Time Delivery Rate 02/07/18 97.7 79 16 155/70 93 07:54 (98) 02/04/18 Room Air 15:33 02/03/18 21 10:18 Intake and Output 02/06/18 02/06/18 02/07/18 1515:00 23:00 07:00 IntakeIntake Total 200 ml 1600 ml 700 ml BalanceBalance 200 ml 1600 ml 700 ml Medications Medications Current Medications IV Flush (NS 3 ml) 3 ml PER PROTOCOL IV ; Start 02/03/18 at 00:00 Ondansetron HCl (Zofran Inj) 4 mg Q6H PRN IV NAUSEA AND/OR VOMITING Last administered on 02/07/18at 08:25; Admin Dose 4 MG; Start 02/03/18 at 00:00 Albuterol (Ventolin Hfa) 2 puff Q4H RESP THERAPY PRN INH SHORTNESS OF BREATH; Start 02/03/18 at 00:00 Amlodipine Besylate (Norvasc) 10 mg DAILY PO Last administered on 02/07/18at 10:56; Admin Dose 10 MG; Start 02/03/18 at 09:00 Gabapentin (Neurontin) 100 mg TID PO Last administered on 02/07/18at 10:56; Admin Dose 100 MG; Start 02/03/18 at 09:00 Montelukast Sodium (Singulair) 10 mg QHS PO Last administered on 02/06/18at 20:49; Admin Dose 10 MG; Start 02/03/18 at 21:00 Oxycodone HCl (Roxicodone) 5 mg Q4H PRN PO PAIN; Start 02/03/18 at 00:00 Sertraline HCl (Zoloft) 25 mg DAILY PO Last administered on 02/07/18at 10:57; Admin Dose 25 MG; Start 02/03/18 at 09:00 Tramadol HCl (Ultram) 50 mg Q6H PRN PO PAIN; Start 02/03/18 at 00:00 Zolpidem Tartrate (Ambien) 5 mg HS PRN PO INSOMNIA; Start 02/03/18 at 07:00 Morphine Sulfate (morphine) 3 mg Q4H PRN IV SEVERE PAIN LEVEL 7-10 Last administered on 02/03/18at 03:17; Admin Dose 3 MG; Start 02/03/18 at 03:30 Hydromorphone HCl (Dilaudid) 1 mg Q3H PRN IV SEVERE PAIN LEVEL 7-10 Last administered on 02/06/18 23:33; Admin Dose 1 MG; Start 02/03/18 at 05:00 Lactobacillus Acidophilus/ Rhamnosus (Culturelle) 1 cap BID PO Last ad ministered on 02/07/18 10:57; Admin Dose 1 CAP; Start 02/03/18 at 21:00 Docusate Sodium (Colace) 100 mg BID PRN PO CONSTIPATION Last administered on 02/06/18 20:54; Admin Dose 100 MG; Start 02/03/18 at 17:00 Albuterol/ Ipratropium (Duoneb) 3 ml Q6H RESP THERAPY PRN HHN SHORTNESS OF BREATH; Start 02/04/18 at 16:00 Acetaminophen (Tylenol Tab) 650 mg Q4H PRN PO MILD PAIN(1-3)OR ELEVATED TEMP; Start 02/04/18 at 16:00 Famotidine (Pepcid) 20 mg BID PO Last administered on 02/07/18at 10:56; Admin Dose 20 MG; Start 02/04/18 at 16:00 Al Hydrox/Mg Hydrox/Simethicone (Mag-Al Plus) 30 ml Q6H PRN PO GASTROINTESTINAL UPSET; Start 02/04/18 at 16:00 Doxycycline Hyclate 100 mg/ Sodium Chloride 250 ml @ 250 mls/hr Q12 IVPB Last administered on 02/07/18at 08:22; Admin Dose 250 MLS/HR; Start 02/06/18 at 21:00 Ceftriaxone Sodium 50 ml @ 100 mls/hr Q24H IVPB Last administered on 02/06/18 15:02; Admin Dose 100 MLS/HR; Start 02/06/18 at 15:00 Enoxaparin Sodium (Lovenox) 30 mg DAILY SC Last administered on 02/07/18at 10:59; Admin Dose 30 MG; Start 02/07/18 at 09:00 ARCENIO CACERES NP Feb 07, 2018 12:48
--- NOTE | 2018-02-07 13:28 | CONS ---
DATE OF ADMISSION: 02/03/2018 DATE OF CONSULTATION: 02/07/2018 TYPE OF CONSULTATION: Nephrology. REASON FOR CONSULTATION: Acute kidney injury. REQUESTING PHYSICIAN: Yong Garcia NP, Bradford Jones MD HISTORY OF PRESENT ILLNESS: This is a 57-year-old female with past medical history of hypertension, asthma, depression, history of obesity, history of gastric bypass surgery, who presented to [facility] emergency room complaining of left knee swelling and tenderness. The patient has a histor y of left knee osteoarthritis and underwent total left knee arthroplasty approximately 1 week ago. F our days postoperatively, the patient noted increased swelling of the left knee as well as tenderness . As a result of the swelling, she came to the emergency room and had x-rays that showed no acute fi ndings. The patient has a white count of 10,000 and was admitted to telemetry and was started on IV antibiotics. The patient during the course of antibiotics has shown clinical improvement in her left knee swelling. The patient has been afebrile. In terms of patient's renal history, the patient has normal baseline creatinine of 0.53 mg/dL. Durin g the hospital course, the patient has been on vancomycin and the patient's creatinine has increased to 4.26 mg/dL. The patient's vancomycin has subsequently been discontinued. The patient was also no jeovany to have hemodynamic fluctuations. The patient denies any hemoptysis, hematemesis, hematochezia. PAST MEDICAL HISTORY: As stated above, history of hypertension, history of asthma, history of depres ej, history of obesity. PAST SURGICAL HISTORY: Status post total left knee arthroplasty status post gastric bypass. FAMILY HISTORY: No family history of kidney disease. SOCIAL HISTORY: Does not drink, smoke or do drugs. MEDICATIONS: Have been reviewed. ALLERGIES: NO KNOWN DRUG ALLERGIES. REVIEW OF SYSTEMS: A 14-point review of systems was conducted. Pertinent positives stated in HPI, o therwise negative. PHYSICAL EXAMINATION: VITAL SIGNS: Blood pressure is 155/70, respirations 16, pulse 79, temperature 97.7. HEENT: Head is normocephalic. NECK: Supple. HEART: Regular rate. LUNGS: Show diminished breath sounds at the base. ABDOMEN: Soft, nontender to palpation. No rebound or guarding. EXTREMITIES: Negative for clubbing, cyanosis. Trace edema, the patient's left knee. DERMATOLOGIC: No rashes. MUSCULOSKELETAL: No joint effusion. NEUROLOGIC: No focal deficits. LABORATORY DATA: Show a vancomycin trough of 35, random level 21.8. Sodium 142, potassium 4.0, BUN 25, creatinine 4.26. Phosphorus 5.7. White count 11.3, hemoglobin 8.8 and platelet count 263. IMAGING STUDIES: Reviewed. ASSESSMENT AND PLAN: This is a 57-year-old female who presents with: 1. Nonoliguric acute kidney injury with previous baseline creatinine of 0.53 mg/dL. Etiology of acu te kidney injury is likely secondary to acute tubular necrosis due to vancomycin nephrotoxicity. The patient remains in injury phase of acute tubular necrosis as renal function continues to decline. T he patient has no overt signs of uremia. The patient's urinary output has been adequate. Vancomycin has been discontinued. Plan at this point is to check a UA with microanalysis, check urine electrol ytes. We will check a renal ultrasound to evaluate renal parenchyma. We would continue supportive c are, renally dose all meds, avoid nephrotoxins. There is no immediate need for renal replacement the rapy at this time. 2. Anemia. Monitor hemoglobin and hematocrit levels. 3. Mineral bone disorder. The patient is hyperphosphatemic secondary to acute injury. Continue to monitor. 4. Hypertension. The patient is status post IV fluids. Continue current blood pressure regimen. A void any LAURENCE inhibitors or ARBs. 5. Left knee cellulitis. The patient's antibiotic regimen has been adjusted. Continue to monitor. Follow up with orthopedic surgeon. Follow up with infectious disease. 6. Depression. Continue SSRI. 7. Anxiety disorder. Continue current medical management. Thank you, Dr. Jones, for this interesting consult. It will be a pleasure to follow patient with you throughout the hospital course. Dictated By: MIHIR DEUTSCH DO NR/NTS Conf#: [id number] DID#: [id number] CC: CALDERON LAYTON MD; BRADFORD JONES MD; ZAIRA BEY MD;*End*
--- NOTE | 2018-02-07 14:38 | PN ---
Date/Time of Note Date/Time of Note DATE: 02/07/18 TIME: 14:37 Assessment/Plan VTE Prophylaxis Risk score (from Nsg)>0 risk: 4 SCD applied (from Nsg): Yes Pharmacological prophylaxis: LMWH Lines/Catheters IV Catheter Type (from Nrsg): Peripheral IV Urinary Cath still in place: No Assessment/Plan Hospital Course SUBJECTIVE: Pain at the left knee well controlled. OBJECTIVE: Physical Exam General: Morbidly obese 57 year-old female lying in bed in no apparent distress. HEENT: Normocephalic, atraumatic. Eyes: Anicteric sclerae, conjunctivae clear. ENT: Nasal septum midline, oral mucosa moist. Neck supple, no JVD noticed. Respiratory: Bilaterally clear breath sounds. No use of accessory muscles of respiration. No adventitious breath sounds. Cardiovascular: S1, S2 heard. Regular rate and rhythm. Abdomen: Soft, nontender, and nondistended. Bowel sounds positive in all 4 quadrants. Genitourinary: Deferred. Extremities: No cyanosis, no clubbing, no edema. Peripheral pulses palpable. Left knee surgical dressing with warmth in the surrounding skin. Neurologic: Cranial nerves II through XII grossly intact. The patient is awake, alert, and oriented. Labs & Vitals per chart ASSESSMENT & PLAN 57-year-old female with history of hypertension, asthma, depression, and obesity status post gastric bypass surgery who recently had a left total knee arthroplasty on 01/24/2018. The patient came back to the hospital because of left knee swelling and tenderness, who was admitted to inpatient setting for further treatment and evaluation. 1. Left cellulitis at the site of left knee arthroplasty. -Continue antibiotics. -Continue pain control. -Status post orthopedic surgery evaluation, who recommended antimicrobial therapy. 2. Asthma. -Continue inhaled bronchodilators as needed for any active bronchospasms. 3. Essential hypertension. -Continue home antihypertensives. 4. Depression. -Continue SSRIs. 5. Anxiety disorder. -Continue as needed anxiolytics. 6. Acute kidney injury. -Nonoliguric. -Nephrotoxic drug (vancomycin) has been discontinued on 02/06/2018. -Renally dose medications. -Nephrology consult obtained. 7. Fluids, electrolytes, and nutrition. -Regular diet. 8. DVT prophylaxis. -Renal dose of Lovenox. 9. Plan. -Continue antimicrobials. -Await clinical improvement. -Renal dose medications. The patient was seen in collaboration with Dr. Stevens. Result Diagram: 02/07/18 0536 02/07/18 0536 Results 24hrs Laboratory Tests Test 02/07/18 05:36 02/07/18 11:04 White Blood Count 11.3 H Red Blood Count 3.22 L Hemoglobin 8.8 L Hematocrit 27.7 L Mean Corpuscular Volume 86.0 Mean Corpuscular Hemoglobin 27.3 L Mean Corpuscular Hemoglobin Concent 31.8 L Red Cell Distribution Width 13.4 Platelet Count 263 Mean Platelet Volume 9.7 Immature Granulocytes % 0.400 Neutrophils % 77.3 H Lymphocytes % 11.6 L Monocytes % 9.2 Eosinophils % 1.1 Basophils % 0.4 Nucleated Red Blood Cells % 0.0 Immature Granulocytes # 0.040 H Neutrophils # 8.8 H Lymphocytes # 1.3 Monocytes # 1.0 H Eosinophils # 0.1 Basophils # 0.0 Nucleated Red Blood Cells # 0.0 Sodium Level 142 Potassium Level 4.0 Chloride Level 103 Carbon Dioxide Level 27 Anion Gap 12 Blood Urea Nitrogen 25 H Creatinine 4.26 #H Est Glomerular Filtrat Rate mL/min 11 L Glucose Level 89 Calcium Level 8.4 Phosphorus Level 5.7 H Magnesium Level 2.2 Random Vancomycin Level 17.6 Exam/Review of Systems Vital Signs Vitals Vital Signs Date Temp Pulse Resp B/P (MAP) Pulse Ox O2 O2 Flow FiO2 Time Delivery Rate 02/07/18 97.7 79 16 155/70 93 07:54 (98) 02/04/18 Room Air 15:33 02/03/18 21 10:18 Intake and Output 02/06/18 02/06/18 02/07/18 1515:00 23:00 07:00 IntakeIntake Total 200 ml 1600 ml 700 ml BalanceBalance 200 ml 1600 ml 700 ml Medications Medications Current Medications IV Flush (NS 3 ml) 3 ml PER PROTOCOL IV ; Start 02/03/18 at 00:00 Ondansetron HCl (Zofran Inj) 4 mg Q6H PRN IV NAUSEA AND/OR VOMITING Last administered on 02/07/18at 08:25; Admin Dose 4 MG; Start 02/03/18 at 00:00 Albuterol (Ventolin Hfa) 2 puff Q4H RESP THERAPY PRN INH SHORTNESS OF BREATH; Start 02/03/18 at 00:00 Amlodipine Besylate (Norvasc) 10 mg DAILY PO Last administered on 02/07/18 10:56; Admin Dose 10 MG; Start 02/03/18 at 09:00 Gabapentin (Neurontin) 100 mg TID PO Last administered on 02/07/18 10:56; Admin Dose 100 MG; Start 02/03/18 at 09:00 Montelukast Sodium (Singulair) 10 mg QHS PO Last administered on 02/06/18 20:49; Admin Dose 10 MG; Start 02/03/18 at 21:00 Oxycodone HCl (Roxicodone) 5 mg Q4H PRN PO PAIN; Start 02/03/18 at 00:00 Sertraline HCl (Zoloft) 25 mg DAILY PO Last administered on 02/07/18 10:57; Admin Dose 25 MG; Start 02/03/18 at 09:00 Tramadol HCl (Ultram) 50 mg Q6H PRN PO PAIN; Start 02/03/18 at 00:00 Zolpidem Tartrate (Ambien) 5 mg HS PRN PO INSOMNIA; Start 02/03/18 at 07:00 Morphine Sulfate (morphine) 3 mg Q4H PRN IV SEVERE PAIN LEVEL 7-10 Last administered on 02/03/18at 03:17; Admin Dose 3 MG; Start 02/03/18 at 03:30 Hydromorphone HCl (Dilaudid) 1 mg Q3H PRN IV SEVERE PAIN LEVEL 7-10 Last admin istered on 02/06/18 23:33; Admin Dose 1 MG; Start 02/03/18 at 05:00 Lactobacillus Acidophilus/ Rhamnosus (Culturelle) 1 cap BID PO Last administered on 02/07/18 10:57; Admin Dose 1 CAP; Start 02/03/18 at 21:00 Docusate Sodium (Colace) 100 mg BID PRN PO CONSTIPATION Last administered on 02/06/18 20:54; Admin Dose 100 MG; Start 02/03/18 at 17:00 Albuterol/ Ipratropium (Duoneb) 3 ml Q6H RESP THERAPY PRN HHN SHORTNESS OF BREATH; Start 02/04/18 at 16:00 Acetaminophen (Tylenol Tab) 650 mg Q4H PRN PO MILD PAIN(1-3)OR ELEVATED TEMP; Start 02/04/18 at 16:00 Famotidine (Pepcid) 20 mg BID PO Last administered on 02/07/18at 10:56; Admin Dose 20 MG; Start 02/04/18 at 16:00 Al Hydrox/Mg Hydrox/Simethicone (Mag-Al Plus) 30 ml Q6H PRN PO GASTROINTESTINAL UPSET; Start 02/04/18 at 16:00 Doxycycline Hyclate 100 mg/ Sodium Chloride 250 ml @ 250 mls/hr Q12 IVPB Last administered on 02/07/18at 08:22; Admin Dose 250 MLS/HR; Start 02/06/18 at 21:00 Ceftriaxone Sodium 50 ml @ 100 mls/hr Q24H IVPB Last administered on 02/06/18at 15:02; Admin Dose 100 MLS/HR; Start 02/06/18 at 15:00 Enoxaparin Sodium (Lovenox) 30 mg DAILY SC Last administered on 02/07/18at 10:59; Admin Dose 30 MG; Start 02/07/18 at 09:00 DAVID RO NP Feb 07, 2018 14:38
[2018-02-07 14:41] VITALS: BP 137/62; PULSE 73; RESP 16
[2018-02-07] MEDS: CEFTRIAXONE 1 GM/50 ML (PMX) 50 ML IVPB SCH (15:00)
--- NOTE | 2018-02-07 15:18 | NUR ---
POST VOID RESIDUAL 1st post void residual=17ml. Pt denies any bladder discomfort or distention. Pt resting in bed with call light within reach. Will recheck in 8 hours.
--- NOTE | 2018-02-07 16:37 | NUR ---
SERVICE WITH [facility]ER[facility] Addendum: 02/07/18 at 1637 by NEETU SINCLAIR CM Amended: Links added.
--- NOTE | 2018-02-07 19:22 | NUR ---
END OF SHIFT NOTE Pt denied pain during shift. Left knee with mepilex dressing dry and intact. IV antibiotics infused during shift. LFA IV HL. Tolerated meals well. Ambulates with walker and stand by assist to toilet. Bed in lowest position and call light within reach.
[2018-02-07 19:39] VITALS: BP 141/79; PULSE 84; RESP 18
[2018-02-07] MEDS: MONTELUKAST 10 MG TAB PO SCH (20:54)
[2018-02-07] MEDS: ZOLPIDEM 5 MG TAB PO PRN (23:45)
[2018-02-08] MEDS: HYDROmorphONE 1 MG/ML SYG IV PRN (00:55)
[2018-02-08 02:10] VITALS: BP 122/58; PULSE 71; RESP 18
--- NOTE | 2018-02-08 04:20 | NUR ---
pt alert,oriented x4, no sob, w/ intermittent aching pain on left knee. affected area swollen, w/ redness and warm to touch. incision clean and dry, no drainage noted. dressing dry and intact. antibiotics and pain medication given as prescribed. Observed fall precaution
[2018-02-08 08:20] VITALS: BP 137/63; PULSE 78; RESP 18
--- NOTE | 2018-02-08 09:50 | NUR ---
IV started on left hand G 22, IV antibiotic started and IV fluids. Will continue to monitor.
[2018-02-08] MEDS: SOD CHLORIDE 0.9% 1,000 ML IV SCH (09:55)
[2018-02-08] MEDS: DOXYCYCLINE 100 MG in SOD CHLORIDE 0.9% 250 ML IVPB SCH (09:57)
[2018-02-08] MEDS: AMLODIPINE 10 MG TAB PO SCH (09:58)
[2018-02-08] MEDS: SERTRALINE 50 MG TAB PO SCH (09:58)
[2018-02-08] MEDS: FAMOTIDINE 20 MG TAB PO SCH ×2 (09:58→21:53)
[2018-02-08] MEDS: LACTOBACILLUS RHAMNOSUS CAP PO SCH ×2 (09:58→21:53)
[2018-02-08] MEDS: GABAPENTIN 100 MG CAP PO SCH ×3 (09:58→21:53)
[2018-02-08] MEDS: ENOXAPARIN 30 MG/0.3 ML SYG SC SCH (09:59)
--- NOTE | 2018-02-08 10:13 | PN ---
DATE: 02/08/2018 SUBJECTIVE: The patient is stable. No events overnight. No fevers, chills, nausea, vomiting. OBJECTIVE: VITAL SIGNS: Blood pressure is 137/63, respiration 18, pulse 78, temperature 97.9. HEENT: Head is normocephalic. NECK: Supple. HEART: Regular rate. LUNGS: Show diminished breath sounds at the base. ABDOMEN: Soft, nontender to palpation without rebound or guarding. EXTREMITIES: Negative for clubbing, cyanosis, no edema. DERMATOLOGIC: No rashes. MUSCULOSKELETAL: No joint effusions. NEUROLOGIC: No change in exam. MEDICATIONS: The patient's medications have been reviewed. LABORATORY DATA: Shows sodium 142, potassium 3.8, BUN 29, creatinine 5.04. White count 9.9, hemoglo bin 8.7, platelet count is 252. The patient's urinalysis shows a FENa approximately 1%, a protein cr eatinine ratio 500 mg per gram of creatinine. Patient's renal ultrasound shows increased echogenicit y suggesting medical renal disease. ASSESSMENT AND PLAN: 1. Nonoliguric acute changes with previous baseline creatinine of 0.53 mg/dL. Etiology of acute ki dney injury secondary to acute tubular necrosis, possible acute interstitial nephritis secondary to v ancomycin nephrotoxicity. The patient remains in injury phase of acute kidney injury. Renal functio n continues to decline. The patient has good urinary output. No overt signs of uremia. Urinalysis was reviewed, showed nonglomerular proteinuria. No other signs of active sediment. The patient's re nal ultrasound shows no evidence of obstruction. At this point, will start the patient on gentle IV hydration. Otherwise, continue supportive care, renally dose all meds, avoid nephrotoxins, no immedi ate need for renal replacement therapy at this time. However, will monitor closely. 2. Anemia. Continue to monitor hemoglobin and hematocrit levels. 3. Mineral bone disorder, monitor calcium and phosphorus levels. 4. Hypertension. Continue to monitor. Continue current blood pressure regimen, avoiding LAURENCE inhibi tor, ARBs at this time. 5. Left knee cellulitis. Continue current antibiotic regimen. 6. Depression. Continue SSRI. 7. Anxiety disorder. Continue medical management. Dictated By: MIHIR KONG/LITA Conf#: [id number] DID#: [id number] CC: ANDRIA JONES MD;*[facility]*
--- NOTE | 2018-02-08 11:15 | NUR ---
Patient complaining IV is too painful and asking to stop IV fluids. Peripherally IV trying to be inserted but not successful.
--- NOTE | 2018-02-08 11:30 | NUR ---
Spoke with Charge nurse Shruti CARRANZA, made aware patient needs an IV access, if she can try or to get a nurse from ER or ICU to place a midline.
--- NOTE | 2018-02-08 12:15 | NUR ---
Shruti RN states: ER does not have anybody that can try a midline, but ICU will send someone to start a midline. Charge nurse spoke with [place] CARRANZA from ICU.
--- NOTE | 2018-02-08 12:50 | PN ---
Date/Time of Note Date/Time of Note DATE: 02/08/18 TIME: 12:50 Assessment/Plan VTE Prophylaxis Risk score (from Nsg)>0 risk: 4 SCD applied (from Nsg): Yes Pharmacological prophylaxis: LMWH Lines/Catheters IV Catheter Type (from Nrsg): Peripheral IV Urinary Cath still in place: No Assessment/Plan Hospital Course SUBJECTIVE: Pain at the left knee well controlled. OBJECTIVE: Physical Exam General: Morbidly obese 57 year-old female lying in bed in no apparent distress. HEENT: Normocephalic, atraumatic. Eyes: Anicteric sclerae, conjunctivae clear. ENT: Nasal septum midline, oral mucosa moist. Neck supple, no JVD noticed. Respiratory: Bilaterally clear breath sounds. No use of accessory muscles of respiration. No adventitious breath sounds. Cardiovascular: S1, S2 heard. Regular rate and rhythm. Abdomen: Soft, nontender, and nondistended. Bowel sounds positive in all 4 quadrants. Genitourinary: Deferred. Extremities: No cyanosis, no clubbing, no edema. Peripheral pulses palpable. Left knee surgical dressing with warmth in the surrounding skin. Neurologic: Cranial nerves II through XII grossly intact. The patient is awake, alert, and oriented. Labs & Vitals per chart ASSESSMENT & PLAN 57-year-old female with history of hypertension, asthma, depression, and obesity status post gastric bypass surgery who recently had a left total knee arthroplasty on 01/24/2018. The patient came back to the hospital because of left knee swelling and tenderness, who was admitted to inpatient setting for further treatment and evaluation. 1. Left knee cellulitis at the site of left knee arthroplasty. -Continue antibiotics. -Continue pain control. -Status post orthopedic surgery evaluation, who recommended antimicrobial therapy. 2. Asthma. -Continue inhaled bronchodilators as needed for any active bronchospasms. 3. Essential hypertension. -Continue home antihypertensives. 4. Depression. -Continue SSRIs. 5. Anxiety disorder. -Continue as needed anxiolytics. 6. Acute kidney injury. -Nonoliguric. -Nephrotoxic drug (vancomycin) has been discontinued on 02/06/2018. -Renally dose medications. -Nephrology following. 7. Fluids, electrolytes, and nutrition. -Regular diet. 8. DVT prophylaxis. -Renal dose of Lovenox. 9. Plan. -Continue antimicrobials. -Await clinical improvement. -Renal dose medications. The patient was seen in collaboration with Dr. Stevens. Result Diagram: 02/08/18 0633 02/08/18 0633 Results 24hrs Laboratory Tests Test 02/07/18 14:05 02/08/18 06:33 Urine Color YELLOW Urine Clarity CLEAR Urine pH 5.0 Urine Specific [place] 1.008 Urine Ketones NEGATIVE Urine Nitrite NEGATIVE Urine Bilirubin NEGATIVE Urine Urobilinogen 1+ H Urine Leukocyte Esterase NEGATIVE Urine Microscopic RBC 2 Urine Microscopic WBC 1 Urine Hemoglobin 1+ H Urine Random Creatinine 62.88 Urine Random Sodium 30 Urine Glucose NEGATIVE Urine Total Protein 35.0 H White Blood Count 9.9 Red Blood Count 3.19 L Hemoglobin 8.7 L Hematocrit 27.4 L Mean Corpuscular Volume 85.9 Mean Corpuscular Hemoglobin 27.3 L Mean Corpuscular Hemoglobin Concent 31.8 L Red Cell Distribution Width 13.3 Platelet Count 252 Mean Platelet Volume 9.4 Immature Granulocytes % 0.400 Neutrophils % 71.0 Lymphocytes % 16.3 Monocytes % 9.9 Eosinophils % 1.8 Basophils % 0.6 Nucleated Red Blood Cells % 0.0 Immature Granulocytes # 0.040 H Neutrophils # 7.0 Lymphocytes # 1.6 Monocytes # 1.0 H Eosinophils # 0.2 Basophils # 0.1 Nucleated Red Blood Cells # 0.0 Sodium Level 142 Potassium Level 3.8 Chloride Level 104 Carbon Dioxide Level 25 Anion Gap 13 Blood Urea Nitrogen 29 H Creatinine 5.04 H Est Glomerular Filtrat Rate mL/min 9 L Glucose Level 85 Calcium Level 8.6 Phosphorus Level 5.9 H Magnesium Level 2.2 Exam/Review of Systems Vital Signs Vitals Vital Signs Date Temp Pulse Resp B/P (MAP) Pulse Ox O2 O2 Flow FiO2 Time Delivery Rate 02/08/18 97.9 78 18 137/63 95 Room Air 08:20 (87) Intake and Output 02/07/18 02/07/18 02/08/18 1515:00 23:00 07:00 IntakeIntake Total 750 ml 1220 ml 220 ml BalanceBalance 750 ml 1220 ml 220 ml Medications Medications Current Medications IV Flush (NS 3 ml) 3 ml PER PROTOCOL IV ; Start 02/03/18 at 00:00 Ondansetron HCl (Zofran Inj) 4 mg Q6H PRN IV NAUSEA AND/OR VOMITING Last administered on 02/07/18at 20:58; Admin Dose 4 MG; Start 02/03/18 at 00:00 Albuterol (Ventolin Hfa) 2 puff Q4H RESP THERAPY PRN INH SHORTNESS OF BREATH; Start 02/03/18 at 00:00 Amlodipine Besylate (Norvasc) 10 mg DAILY PO Last administered on 02/08/18 09:58; Admin Dose 10 MG; Start 02/03/18 at 09:00 Gabapentin (Neurontin) 100 mg TID PO Last administered on 02/08/18 09:58; Admin Dose 100 MG; Start 02/03/18 at 09:00 Montelukast Sodium (Singulair) 10 mg QHS PO Last administered on 02/07/18 20:54; Admin Dose 10 MG; Start 02/03/18 at 21:00 Oxycodone HCl (Roxicodone) 5 mg Q4H PRN PO PAIN; Start 02/03/18 at 00:00 Sertraline HCl (Zoloft) 25 mg DAILY PO Last administered on 02/08/18 09:58; Admin Dose 25 MG; Start 02/03/18 at 09:00 Tramadol HCl (Ultram) 50 mg Q6H PRN PO PAIN; Start 02/03/18 at 00:00 Zolpidem Tartrate (Ambien) 5 mg HS PRN PO INSOMNIA Last administered on 02/07/18 23:45; Admin Dose 5 MG; Start 02/03/18 at 07:00 Morphine Sulfate (morphine) 3 mg Q4H PRN IV SEVERE PAIN LEVEL 7-10 Last administered on 02/03/18at 03:17; Admin Dose 3 MG; Start 02/03/18 at 03:30 Hydromorphone HCl (Dilaudid) 1 mg Q3H PRN IV SEVERE PAIN LEVEL 7-10 Last administered on 02/08/18 00:55; Admin Dose 1 MG; Start 02/03/18 at 05:00 Lactobacillus Acidophilus/ Rhamnosus (Culturelle) 1 cap BID PO Last administered on 02/08/18 09:58; Admin Dose 1 CAP; Start 02/03/18 at 21:00 Docusate Sodium (Colace) 100 mg BID PRN PO CONSTIPATION Last administered on 02/06/18 20:54; Admin Dose 100 MG; Start 02/03/18 at 17:00 Albuterol/ Ipratropium (Duoneb) 3 ml Q6H RESP THERAPY PRN HHN SHORTNESS OF BREATH; Start 02/04/18 at 16:00 Acetaminophen (Tylenol Tab) 650 mg Q4H PRN PO MILD PAIN(1-3)OR ELEVATED TEMP Last administered on 02/07/18 22:29; Admin Dose 650 MG; Start 02/04/18 at 16:00 Famotidine (Pepcid) 20 mg BID PO Last administered on 02/08/18 09:58; Admin Dose 20 MG; Start 02/04/18 at 16:00 Al Hydrox/Mg Hydrox/Simethicone (Mag-Al Plus) 30 ml Q6H PRN PO GASTROINTESTINAL UPSET; Start 02/04/18 at 16:00 Doxycycline Hyclate 100 mg/ Sodium Chloride 250 ml @ 250 mls/hr Q12 IVPB Last administered on 02/08/18 09:57; Admin Dose 250 MLS/HR; Start 02/06/18 at 21:00 Ceftriaxone Sodium 50 ml @ 100 mls/hr Q24H IVPB Last administered on 02/07/18at 15:00; Admin Dose 100 MLS/HR; Start 02/06/18 at 15:00 Enoxaparin Sodium (Lovenox) 30 mg DAILY SC Last administered on 02/08/18 09:59; Admin Dose 30 MG; Start 02/07/18 at 09:00 Sodium Chloride 1,000 ml @ 50 mls/hr Q20H IV Last administered on 02/08/18 09:55; Admin Dose 50 MLS/HR; Start 02/08/18 at 09:00 DAVID RO NP Feb 08, 2018 12:50
--- NOTE | 2018-02-08 14:48 | CONS ---
Date/Time of Note Date/Time of Note DATE: 02/08/18 TIME: 14:47 Assessment/Plan Assessment/Plan Hospital Course Subjective: Patient is alert, feels good, no fevers WBC 9.9 BUN 29 creatinine 5.04 Antimicrobials: Doxycycline Rocephin Physical examination: Morbidly obese well-developed middle-aged woman who is alert in no distress head atraumatic normocephalic sclera nonicteric neck is obese chest rise symmetrical breath sounds clear heart: S1-S2 abdomen soft bowel sounds present extremities with left knee swelling, dressing clean dry and intact, erythema is resolving Assessment: 1. Resolving superficial cellulitis of left knee 2. Acute renal failure 3. Morbid obesity 4. Hypertension Plan: Left knee continues to look better, change antibiotics to oral doxycycline, follow nephrology recommendations Result Diagram: 02/08/18 0633 02/08/18 0633 Results 24hrs Laboratory Tests Test 02/08/18 06:33 White Blood Count 9.9 Red Blood Count 3.19 L Hemoglobin 8.7 L Hematocrit 27.4 L Mean Corpuscular Volume 85.9 Mean Corpuscular Hemoglobin 27.3 L Mean Corpuscular Hemoglobin Concent 31.8 L Red Cell Distribution Width 13.3 Platelet Count 252 Mean Platelet Volume 9.4 Immature Granulocytes % 0.400 Neutrophils % 71.0 Lymphocytes % 16.3 Monocytes % 9.9 Eosinophils % 1.8 Basophils % 0.6 Nucleated Red Blood Cells % 0.0 Immature Granulocytes # 0.040 H Neutrophils # 7.0 Lymphocytes # 1.6 Monocytes # 1.0 H Eosinophils # 0.2 Basophils # 0.1 Nucleated Red Blood Cells # 0.0 Sodium Level 142 Potassium Level 3.8 Chloride Level 104 Carbon Dioxide Level 25 Anion Gap 13 Blood Urea Nitrogen 29 H Creatinine 5.04 H Est Glomerular Filtrat Rate mL/min 9 L Glucose Level 85 Calcium Level 8.6 Phosphorus Level 5.9 H Magnesium Level 2.2 Consultation Date/Type/Reason Admit Date/Time Feb 03, 2018 at 18:13 Initial Consult Date Type of Consult id Exam/Review of Systems Vital Signs Vitals Vital Signs Date Temp Pulse Resp B/P (MAP) Pulse Ox O2 O2 Flow FiO2 Time Delivery Rate 02/08/18 97.9 78 18 137/63 95 Room Air 08:20 (87) Intake and Output 02/07/18 02/07/18 02/08/18 1515:00 23:00 07:00 IntakeIntake Total 750 ml 1220 ml 220 ml BalanceBalance 750 ml 1220 ml 220 ml Medications Medications Current Medications IV Flush (NS 3 ml) 3 ml PER PROTOCOL IV ; Start 02/03/18 at 00:00 Ondansetron HCl (Zofran Inj) 4 mg Q6H PRN IV NAUSEA AND/OR VOMITING Last administered on 02/07/18 20:58; Admin Dose 4 MG; Start 02/03/18 at 00:00 Albuterol (Ventolin Hfa) 2 puff Q4H RESP THERAPY PRN INH SHORTNESS OF BREATH; Start 02/03/18 at 00:00 Amlodipine Besylate (Norvasc) 10 mg DAILY PO Last administered on 02/08/18at 09:58; Admin Dose 10 MG; Start 02/03/18 at 09:00 Gabapentin (Neurontin) 100 mg TID PO Last administered on 02/08/18at 13:11; Admin Dose 100 MG; Start 02/03/18 at 09:00 Montelukast Sodium (Singulair) 10 mg QHS PO Last administered on 02/07/18at 20:54; Admin Dose 10 MG; Start 02/03/18 at 21:00 Oxycodone HCl (Roxicodone) 5 mg Q4H PRN PO PAIN; Start 02/03/18 at 00:00 Sertraline HCl (Zoloft) 25 mg DAILY PO Last administered on 02/08/18 09:58; Admin Dose 25 MG; Start 02/03/18 at 09:00 Tramadol HCl (Ultram) 50 mg Q6H PRN PO PAIN; Start 02/03/18 at 00:00 Zolpidem Tartrate (Ambien) 5 mg HS PRN PO INSOMNIA Last administered on 02/07/18at 23:45; Admin Dose 5 MG; Start 02/03/18 at 07:00 Morphine Sulfate (morphine) 3 mg Q4H PRN IV SEVERE PAIN LEVEL 7-10 Last administered on 02/03/18at 03:17; Admin Dose 3 MG; Start 02/03/18 at 03:30 Hydromorphone HCl (Dilaudid) 1 mg Q3H PRN IV SEVERE PAIN LEVEL 7-10 Last administered on 02/08/18at 00:55; Admin Dose 1 MG; Start 02/03/18 at 05:00 Lactobacillus Acidophilus/ Rhamnosus (Culturelle) 1 cap BID PO Last administered on 02/08/18 09:58; Admin Dose 1 CAP; Start 02/03/18 at 21:00 Docusate Sodium (Colace) 100 mg BID PRN PO CONSTIPATION Last administered on 02/06/18 20:54; Admin Dose 100 MG; Start 02/03/18 at 17:00 Albuterol/ Ipratropium (Duoneb) 3 ml Q6H RESP THERAPY PRN HHN SHORTNESS OF BREATH; Start 02/04/18 at 16:00 Acetaminophen (Tylenol Tab) 650 mg Q4H PRN PO MILD PAIN(1-3)OR ELEVATED TEMP Last administered on 02/07/18at 22:29; Admin Dose 650 MG; Start 02/04/18 at 16:00 Famotidine (Pepcid) 20 mg BID PO Last administered on 02/08/18 09:58; Admin Dose 20 MG; Start 02/04/18 at 16:00 Al Hydrox/Mg Hydrox/Simethicone (Mag-Al Plus) 30 ml Q6H PRN PO GASTROINTESTINAL UPSET; Start 02/04/18 at 16:00 Doxycycline Hyclate 100 mg/ Sodium Chloride 250 ml @ 250 mls/hr Q12 IVPB Last administered on 02/08/18 09:57; Admin Dose 250 MLS/HR; Start 02/06/18 at 21:00 Ceftriaxone Sodium 50 ml @ 100 mls/hr Q24H IVPB Last administered on 02/07/18at 15:00; Admin Dose 100 MLS/HR; Start 02/06/18 at 15:00 Enoxaparin Sodium (Lovenox) 30 mg DAILY SC Last administered on 02/08/18 09:59; Admin Dose 30 MG; Start 02/07/18 at 09:00 Sodium Chloride 1,000 ml @ 50 mls/hr Q20H IV Last administered on 02/08/18 09:55; Admin Dose 50 MLS/HR; Start 02/08/18 at 09:00 ARCENIO CACERES NP Feb 08, 2018 14:48
--- NOTE | 2018-02-08 14:50 | NUR ---
Spoke with charge nurse, made aware nobody from ICU has come yet to start the midline.
[2018-02-08 15:02] VITALS: BP 135/61; PULSE 83; RESP 18
--- NOTE | 2018-02-08 15:20 | NUR ---
Radha CARRANZA trying to get an IV on the patient for IV fluids. No successful yet.
--- NOTE | 2018-02-08 16:00 | NUR ---
Rodo CARRANZA trying to take an IV. No successful at this time.
--- NOTE | 2018-02-08 16:40 | NUR ---
Shruti RN called again to ICU and ER for a midline nurse, but they are too busy.
--- NOTE | 2018-02-08 17:00 | NUR ---
Shruti CARRANZA spoke with ER again, they will send someone to start a midline.
--- NOTE | 2018-02-08 17:30 | NUR ---
ER nurse Andie came and started a midline 20 gauge on left upper arm, but not sure if it's a good one. Andie RN states: 'If the midline start hurting then you will have to take it out'.
--- NOTE | 2018-02-08 17:45 | NUR ---
Went to patient's room and connected her to NS at 50 mls/hr. Will continue to monitor.
--- NOTE | 2018-02-08 18:30 | NUR ---
Received call from the patient, midline is hurting too much, patient states:"It feels like a knife, sharp pain in my arm, please take the IV out." Midline discontinued at this time. Shruti CARRANZA made aware.
--- NOTE | 2018-02-08 19:00 | NUR ---
Report given to Inna RN and Bradford RN. Asked them to call Dr. Maldonado and let him know that IV fluids were not able to infuse this AM because no IV access. Patient stable condition.
[2018-02-08 19:54] VITALS: BP 152/65; PULSE 80; RESP 18
--- NOTE | 2018-02-08 20:12 | NUR ---
Spoke with Dr. Maldonado, made aware of no Iv acces. Stated to attempt to insert peripheral IV, if unsuccessful okay for no IV fluids. Monitor urine output, Will follow up in the AM.
[2018-02-08] MEDS: ONDANSETRON 4 MG TAB PO PRN (21:26)
[2018-02-08] MEDS: MONTELUKAST 10 MG TAB PO SCH (21:53)
[2018-02-08] MEDS: DOXYCYCLINE 100 MG TAB PO SCH (21:53)
[2018-02-08] MEDS: ZOLPIDEM 5 MG TAB PO PRN (23:30)
[2018-02-09 01:40] VITALS: BP 155/74; PULSE 84; RESP 18
[2018-02-09] MEDS ORDERED: HYDROCODONE/APAP (5/325) TAB PO PRN (02:05)
[2018-02-09] MEDS: oxyCODONE 5 MG TAB PO PRN ×2 (02:55→17:41)
[2018-02-09] MEDS: SOD CHLORIDE 0.9% 1,000 ML IV SCH (05:00)
--- NOTE | 2018-02-09 05:24 | NUR ---
Pt continued with no IV access. Pt complaint of nausea, PO zofran given. Bladder scans x2, less than 300 mls. Pt stated no bladder discomfort. Pt did complain of leg pain. roxycodone PO was given with adequate relief. Pt vital signs remain at baseline. Fall precautions in place. No signs of acute distress noted. Will continue to monitor.
[2018-02-09 08:27] VITALS: BP 185/83; PULSE 86; RESP 20
[2018-02-09] MEDS: GABAPENTIN 100 MG CAP PO SCH ×3 (08:30→20:44)
[2018-02-09] MEDS: AMLODIPINE 10 MG TAB PO SCH (08:30)
[2018-02-09] MEDS: DOXYCYCLINE 100 MG TAB PO SCH ×2 (08:30→20:44)
[2018-02-09] MEDS: FAMOTIDINE 20 MG TAB PO SCH ×2 (08:30→20:45)
[2018-02-09] MEDS: ENOXAPARIN 30 MG/0.3 ML SYG SC SCH (08:34)
[2018-02-09] MEDS: LACTOBACILLUS RHAMNOSUS CAP PO SCH ×2 (09:00→20:45)
[2018-02-09] MEDS: SERTRALINE 50 MG TAB PO SCH (09:00)
--- NOTE | 2018-02-09 09:00 | NUR ---
DR DEUTSCH ROUNDED AND MADE AWARE OF PATIENTS NO IV ACCESS DUE TO POOR VENOUS ACCESS. PATIENT WAS ADVISED ADEQUATE PO ORAL INTAKE.
[2018-02-09 11:36] VITALS: BP 141/72; PULSE 76; RESP 18
--- NOTE | 2018-02-09 11:36 | PN ---
DATE: 02/09/2018 SUBJECTIVE: The patient remains stable. The patient is complaining about some nausea which she attr ibutes to medications. I spoke with the patient in detail regarding her acute kidney injury. The pa sherice has agreed to stay in the hospital during evaluation. She denies any metallic taste in mouth. Denies any pruritus. Denies any weakness. OBJECTIVE: VITAL SIGNS: Blood pressure is 185/83, respirations 20, pulse 86, temperature 98.3. HEENT: Head is normocephalic. NECK: Supple. HEART: Regular rate. LUNGS: Show diminished breath sounds at the base. ABDOMEN: Soft, nontender to palpation without rebound or guarding. EXTREMITIES: Negative for clubbing, cyanosis. No edema. DERMATOLOGIC: No rashes. MUSCULOSKELETAL: No joint effusions. NEUROLOGIC: No change in exam. MEDICATIONS: Have been reviewed. LABORATORY DATA: Show sodium 138, potassium 3.6, BUN 32, creatinine 5.14. White count 10.2, hemoglo bin 9.5, platelet count is 252. ASSESSMENT AND PLAN: 1. Nonoliguric acute kidney injury with previous baseline creatinine of 0.53 mg/dL. Etiology of acu te kidney injury is secondary to acute tubular necrosis from vancomycin nephrotoxicity. Possible acu te interstitial nephritis is a consideration. The patient appears to be entering maintenance phase o f acute tubular necrosis as creatinine appears to be stabilizing. At this point, continue current tr eatment plans, supportive care, renally dose all meds. No immediate need for renal replacement thera py. Monitor closely for any signs of overt uremia. 2. Anemia. Monitor hemoglobin and hematocrit levels. 3. Mineral bone disorder. Monitor calcium and phosphorus levels. 4. Hypertension. Continue current blood pressure regimen. Avoid any LAURENCE inhibitor or ARBs at this time. 5. Cellulitis. Continue current antibiotic regimen. 6. Depression. Continue SSRI. 7. Anxiety disorder. Continue to monitor. Dictated By: MIHIR DEUTSCH DO NR/LITA Conf#: [id number] DID#: [id number] CC: CALDERON LAYTON MD; ZAIRA BEY MD; ANDRIA JONES MD;*EndCC*
--- NOTE | 2018-02-09 12:01 | PN ---
Date/Time of Note Date/Time of Note DATE: 02/09/18 TIME: 12:00 Assessment/Plan VTE Prophylaxis Risk score (from Nsg)>0 risk: 5 SCD applied (from Nsg): Yes Pharmacological prophylaxis: LMWH Lines/Catheters IV Catheter Type (from Nrsg): Peripheral IV Urinary Cath still in place: No Assessment/Plan Hospital Course SUBJECTIVE: Pain at the left knee well controlled. OBJECTIVE: Physical Exam General: Morbidly obese 57 year-old female lying in bed in no apparent distress. HEENT: Normocephalic, atraumatic. Eyes: Anicteric sclerae, conjunctivae clear. ENT: Nasal septum midline, oral mucosa moist. Neck supple, no JVD noticed. Respiratory: Bilaterally clear breath sounds. No use of accessory muscles of respiration. No adventitious breath sounds. Cardiovascular: S1, S2 heard. Regular rate and rhythm. Abdomen: Soft, nontender, and nondistended. Bowel sounds positive in all 4 quadrants. Genitourinary: Deferred. Extremities: No cyanosis, no clubbing, no edema. Peripheral pulses palpable. Left knee surgical dressing with warmth in the surrounding skin. Neurologic: Cranial nerves II through XII grossly intact. The patient is awake, alert, and oriented. Labs & Vitals per chart ASSESSMENT & PLAN 57-year-old female with history of hypertension, asthma, depression, and obesity status post gastric bypass surgery who recently had a left total knee arthroplasty on 01/24/2018. The patient came back to the hospital because of left knee swelling and tenderness, who was admitted to inpatient setting for further treatment and evaluation. 1. Left knee cellulitis at the site of left knee arthroplasty. -Continue antibiotics. -Continue pain control. -Await orthopedic surgery recommendations. 2. Asthma. -Continue inhaled bronchodilators as needed for any active bronchospasms. 3. Essential hypertension. -Continue home antihypertensives. 4. Depression. -Continue SSRIs. 5. Anxiety disorder. -Continue as needed anxiolytics. 6. Fluids, electrolytes, and nutrition. -Regular diet. 7. DVT prophylaxis. -Continue Lovenox. 8. Plan. -Continue antimicrobials. -Await clinical improvement. The patient was seen in collaboration with Dr. Stevens. Result Diagram: 02/09/18 0513 02/09/18 0513 Results 24hrs Laboratory Tests Test 02/09/18 05:13 White Blood Count 10.2 Red Blood Count 3.11 L Hemoglobin 8.5 L Hematocrit 26.1 L Mean Corpuscular Volume 83.9 Mean Corpuscular Hemoglobin 27.3 L Mean Corpuscular Hemoglobin Concent 32.6 Red Cell Distribution Width 13.2 Platelet Count 252 Mean Platelet Volume 9.8 Immature Granulocytes % 0.500 H Neutrophils % 75.9 Lymphocytes % 11.8 L Monocytes % 9.7 Eosinophils % 1.4 Basophils % 0.7 Nucleated Red Blood Cells % 0.0 Immature Granulocytes # 0.050 H Neutrophils # 7.7 H Lymphocytes # 1.2 Monocytes # 1.0 H Eosinophils # 0.1 Basophils # 0.1 Nucleated Red Blood Cells # 0.0 Sodium Level 138 Potassium Level 3.6 Chloride Level 101 Carbon Dioxide Level 26 Anion Gap 11 Blood Urea Nitrogen 32 H Creatinine 5.14 H Est Glomerular Filtrat Rate mL/min 9 L Glucose Level 106 Calcium Level 8.5 Phosphorus Level 5.2 H Magnesium Level 2.1 Exam/Review of Systems Vital Signs Vitals Vital Signs Date Temp Pulse Resp B/P (MAP) Pulse Ox O2 O2 Flow FiO2 Time Delivery Rate 02/09/18 76 18 141/72 11:36 (95) 02/09/18 98.3 96 Room Air 08:27 Intake and Output 02/08/18 02/08/18 02/09/18 1515:00 23:00 07:00 IntakeIntake Total 1070 ml 750 ml 240 ml OutputOutput Total 1 ml 125 ml 480 ml BalanceBalance 1069 ml 625 ml -240 ml Medications Medications Current Medications IV Flush (NS 3 ml) 3 ml PER PROTOCOL IV ; Start 02/03/18 at 00:00 Ondansetron HCl (Zofran Inj) 4 mg Q6H PRN IV NAUSEA AND/OR VOMITING Last administered on 02/07/18at 20:58; Admin Dose 4 MG; Start 02/03/18 at 00:00 Albuterol (Ventolin Hfa) 2 puff Q4H RESP THERAPY PRN INH SHORTNESS OF BREATH; Start 02/03/18 at 00:00 Amlodipine Besylate (Norvasc) 10 mg DAILY PO Last administered on 02/09/18at 08:30; Admin Dose 10 MG; Start 02/03/18 at 09:00 Gabapentin (Neurontin) 100 mg TID PO Last administered on 02/09/18at 08:30; Admin Dose 100 MG; Start 02/03/18 at 09:00 Montelukast Sodium (Singulair) 10 mg QHS PO Last administered on 02/08/18 21:53; Admin Dose 10 MG; Start 02/03/18 at 21:00 Oxycodone HCl (Roxicodone) 5 mg Q4H PRN PO PAIN Last administered on 02/09/18 02:55; Admin Dose 5 MG; Start 02/03/18 at 00:00 Sertraline HCl (Zoloft) 25 mg DAILY PO Last administered on 02/08/18 09:58; Admin Dose 25 MG; Start 02/03/18 at 09:00 Tramadol HCl (Ultram) 50 mg Q6H PRN PO PAIN; Start 02/03/18 at 00:00 Zolpidem Tartrate (Ambien) 5 mg HS PRN PO INSOMNIA Last administered on 02/08/18 23:30; Admin Dose 5 MG; Start 02/03/18 at 07:00 Morphine Sulfate (morphine) 3 mg Q4H PRN IV SEVERE PAIN LEVEL 7-10 Last administered on 02/03/18 03:17; Admin Dose 3 MG; Start 02/03/18 at 03:30 Hydromorphone HCl (Dilaudid) 1 mg Q3H PRN IV SEVERE PAIN LEVEL 7-10 Last administered on 02/08/18 00:55; Admin Dose 1 MG; Start 02/03/18 at 05:00 Lactobacillus Acidophilus/ Rhamnosus (Culturelle) 1 cap BID PO Last administered on 02/08/18 21:53; Admin Dose 1 CAP; Start 02/03/18 at 21:00 Docusate Sodium (Colace) 100 mg BID PRN PO CONSTIPATION Last administered on 02/06/18 20:54; Admin Dose 100 MG; Start 02/03/18 at 17:00 Albuterol/ Ipratropium (Duoneb) 3 ml Q6H RESP THERAPY PRN HHN SHORTNESS OF BREATH; Start 02/04/18 at 16:00 Acetaminophen (Tylenol Tab) 650 mg Q4H PRN PO MILD PAIN(1-3)OR ELEVATED TEMP Last administered on 02/07/18 22:29; Admin Dose 650 MG; Start 12/23/18 at 16:00 Famotidine (Pepcid) 20 mg BID PO Last administered on 02/09/18at 08:30; Admin Dose 20 MG; Start 02/04/18 at 16:00 Al Hydrox/Mg Hydrox/Simethicone (Mag-Al Plus) 30 ml Q6H PRN PO GASTROINTESTINAL UPSET; Start 02/04/18 at 16:00 Enoxaparin Sodium (Lovenox) 30 mg DAILY SC Last administered on 02/09/18at 08:34; Admin Dose 30 MG; Start 02/07/18 at 09:00 Sodium Chloride 1,000 ml @ 50 mls/hr Q20H IV Last administered on 02/08/18at 09:55; Admin Dose 50 MLS/HR; Start 02/08/18 at 09:00 Doxycycline Hyclate (Vibramycin) 100 mg BID PO Last administered on 02/09/18at 08:30; Admin Dose 100 MG; Start 02/08/18 at 21:00 Ondansetron HCl (Zofran Tab) 4 mg Q4 PRN PO NAUSEA AND/OR VOMITING Last administered on 02/08/18at 21:26; Admin Dose 4 MG; Start 02/08/18 at 21:00 Acetaminophen/ Hydrocodone Bitart ([place] (5/325)) 1 tab Q4H PRN PO MODERATE PAIN LEVEL 4-6; Start 02/09/18 at 02:05 DAVID RO NP Feb 09, 2018 12:00
--- NOTE | 2018-02-09 12:21 | CONS ---
Date/Time of Note Date/Time of Note DATE: 02/09/18 TIME: 12:19 Assessment/Plan Assessment/Plan Hospital Course Subjective: Patient is alert, feels good, no fevers Antimicrobials: Doxycycline Physical examination: Morbidly obese well-developed middle-aged woman who is alert in no distress head atraumatic normocephalic sclera nonicteric neck is obese chest rise symmetrical breath sounds clear heart: S1-S2 abdomen soft bowel sounds present extremities with left knee swelling, dressing clean dry and intact, erythema is resolving Assessment: 1. Resolving superficial cellulitis of left knee 2. Acute renal failure 3. Morbid obesity 4. Hypertension Plan: Stable, continue antibiotics, nephrology recommendations noted Result Diagram: 02/09/18 0513 02/09/18 0513 Results 24hrs Laboratory Tests Test 02/09/18 05:13 White Blood Count 10.2 Red Blood Count 3.11 L Hemoglobin 8.5 L Hematocrit 26.1 L Mean Corpuscular Volume 83.9 Mean Corpuscular Hemoglobin 27.3 L Mean Corpuscular Hemoglobin Concent 32.6 Red Cell Distribution Width 13.2 Platelet Count 252 Mean Platelet Volume 9.8 Immature Granulocytes % 0.500 H Neutrophils % 75.9 Lymphocytes % 11.8 L Monocytes % 9.7 Eosinophils % 1.4 Basophils % 0.7 Nucleated Red Blood Cells % 0.0 Immature Granulocytes # 0.050 H Neutrophils # 7.7 H Lymphocytes # 1.2 Monocytes # 1.0 H Eosinophils # 0.1 Basophils # 0.1 Nucleated Red Blood Cells # 0.0 Sodium Level 138 Potassium Level 3.6 Chloride Level 101 Carbon Dioxide Level 26 Anion Gap 11 Blood Urea Nitrogen 32 H Creatinine 5.14 H Est Glomerular Filtrat Rate mL/min 9 L Glucose Level 106 Calcium Level 8.5 Phosphorus Level 5.2 H Magnesium Level 2.1 Consultation Date/Type/Reason Admit Date/Time Feb 03, 2018 at 18:13 Initial Consult Date Type of Consult id Exam/Review of Systems Vital Signs Vitals Vital Signs Date Temp Pulse Resp B/P (MAP) Pulse Ox O2 O2 Flow FiO2 Time Delivery Rate 02/09/18 76 18 141/72 11:36 (95) 02/09/18 98.3 96 Room Air 08:27 Intake and Output 02/08/18 02/08/18 02/09/18 1515:00 23:00 07:00 IntakeIntake Total 1070 ml 750 ml 240 ml OutputOutput Total 1 ml 125 ml 480 ml BalanceBalance 1069 ml 625 ml -240 ml Medications Medications Current Medications IV Flush (NS 3 ml) 3 ml PER PROTOCOL IV ; Start 02/03/18 at 00:00 Ondansetron HCl (Zofran Inj) 4 mg Q6H PRN IV NAUSEA AND/OR VOMITING Last administered on 02/07/18 20:58; Admin Dose 4 MG; Start 02/03/18 at 00:00 Albuterol (Ventolin Hfa) 2 puff Q4H RESP THERAPY PRN INH SHORTNESS OF BREATH; Start 02/03/18 at 00:00 Amlodipine Besylate (Norvasc) 10 mg DAILY PO Last administered on 02/09/18 08:30; Admin Dose 10 MG; Start 02/03/18 at 09:00 Gabapentin (Neurontin) 100 mg TID PO Last administered on 02/09/18 12:01; Admin Dose 100 MG; Start 02/03/18 at 09:00 Montelukast Sodium (Singulair) 10 mg QHS PO Last administered on 02/08/18 21:53; Admin Dose 10 MG; Start 02/03/18 at 21:00 Oxycodone HCl (Roxicodone) 5 mg Q4H PRN PO PAIN Last administered on 02/09/18 02:55; Admin Dose 5 MG; Start 02/03/18 at 00:00 Sertraline HCl (Zoloft) 25 mg DAILY PO Last administered on 02/08/18 09:58; Admin Dose 25 MG; Start 02/03/18 at 09:00 Tramadol HCl (Ultram) 50 mg Q6H PRN PO PAIN; Start 02/03/18 at 00:00 Zolpidem Tartrate (Ambien) 5 mg HS PRN PO INSOMNIA Last administered on 02/08/18 23:30; Admin Dose 5 MG; Start 02/03/18 at 07:00 Morphine Sulfate (morphine) 3 mg Q4H PRN IV SEVERE PAIN LEVEL 7-10 Last administered on 02/03/18 03:17; Admin Dose 3 MG; Start 02/03/18 at 03:30 Hydromorphone HCl (Dilaudid) 1 mg Q3H PRN IV SEVERE PAIN LEVEL 7-10 Last administered on 02/08/18 00:55; Admin Dose 1 MG; Start 02/03/18 at 05:00 Lactobacillus Acidophilus/ Rhamnosus (Culturelle) 1 cap BID PO Last administered on 02/08/18at 21:53; Admin Dose 1 CAP; Start 02/03/18 at 21:00 Docusate Sodium (Colace) 100 mg BID PRN PO CONSTIPATION Last administered on 02/06/18 20:54; Admin Dose 100 MG; Start 02/03/18 at 17:00 Albuterol/ Ipratropium (Duoneb) 3 ml Q6H RESP THERAPY PRN HHN SHORTNESS OF BREATH; Start 02/04/18 at 16:00 Acetaminophen (Tylenol Tab) 650 mg Q4H PRN PO MILD PAIN(1-3)OR ELEVATED TEMP Last administered on 02/07/18at 22:29; Admin Dose 650 MG; Start 02/04/18 at 16: 00 Famotidine (Pepcid) 20 mg BID PO Last administered on 02/09/18 08:30; Admin Dose 20 MG; Start 02/04/18 at 16:00 Al Hydrox/Mg Hydrox/Simethicone (Mag-Al Plus) 30 ml Q6H PRN PO GASTROINTESTINAL UPSET; Start 02/04/18 at 16:00 Enoxaparin Sodium (Lovenox) 30 mg DAILY SC Last administered on 02/09/18at 08:34; Admin Dose 30 MG; Start 02/07/18 at 09:00 Sodium Chloride 1,000 ml @ 50 mls/hr Q20H IV Last administered on 02/08/18at 09:55; Admin Dose 50 MLS/HR; Start 02/08/18 at 09:00 Doxycycline Hyclate (Vibramycin) 100 mg BID PO Last administered on 02/09/18 08:30; Admin Dose 100 MG; Start 02/08/18 at 21:00 Ondansetron HCl (Zofran Tab) 4 mg Q4 PRN PO NAUSEA AND/OR VOMITING Last admin istered on 02/08/18 21:26; Admin Dose 4 MG; Start 02/08/18 at 21:00 Acetaminophen/ Hydrocodone Bitart ([place] (5/325)) 1 tab Q4H PRN PO MODERATE PAIN LEVEL 4-6; Start 02/09/18 at 02:05 ARCENIO CACERES NP Feb 09, 2018 12:21
[2018-02-09 14:30] VITALS: BP 135/74; PULSE 81; RESP 18
--- NOTE | 2018-02-09 18:43 | NUR ---
ALERT,ORIENTED X4,POD DAY 16 OF LEFT TKR.LEFT KNEE INCISION IS INTACT WITH DERMABOND CLOSURE,NO REDNESS,DRAINAGE NOTED.HAD C/O LEFT KNEE PAIN WHICH WAS RELEIVED WITH OXYCODONE .PATIENT TAKING ORAL FLUIDS AND URINE OUTPUT IS ADEQUATE.PATIENT TO CONT WITH TREATMENT PLAN AND PLAN FOR DC HOME.
[2018-02-09 19:36] VITALS: BP 157/75; PULSE 84; RESP 20
[2018-02-09] MEDS: MONTELUKAST 10 MG TAB PO SCH (20:45)
[2018-02-09] MEDS: ONDANSETRON 4 MG TAB PO PRN (20:54)
[2018-02-10] MEDS: ZOLPIDEM 5 MG TAB PO PRN ×2 (00:59→23:13)
[2018-02-10] MEDS: SOD CHLORIDE 0.9% 1,000 ML IV SCH ×2 (01:00→21:00)
[2018-02-10] MEDS: oxyCODONE 5 MG TAB PO PRN ×2 (01:42→21:17)
[2018-02-10 02:06] VITALS: BP 135/61; PULSE 78; RESP 18
--- NOTE | 2018-02-10 06:22 | NUR ---
End of shift Report: Sleeping on bed in comfortable position. No sob. No resp distress. Afebrile. Medicated for abdominal pain x1, well-mar and effective. No IV access , MD aware. Encouraged increase fluid intake as mar. Bladder scan Q8H, may DC Bladder scan if negative residuals. @ 2200 Bladder scan done noted with 36ml @ 0600 post void with 200ml urine output bladder scan done noted with 70ml. Cont PO ATB Therapy well-mar. No A/R noted. Left knee incision covered with Mepilex dry and intact. Needs attended and anticipated. Will continue to monitor. Will endorse accordingly.
--- NOTE | 2018-02-10 07:47 | PN ---
Date/Time of Note Date/Time of Note DATE: 02/10/18 TIME: 07:47 Assessment/Plan VTE Prophylaxis Risk score (from Nsg)>0 risk: 4 SCD applied (from Nsg): Yes Pharmacological prophylaxis: heparin Lines/Catheters IV Catheter Type (from Nrsg): Peripheral IV Urinary Cath still in place: No Assessment/Plan Hospital Course SUBJECTIVE: Pain at the left knee well controlled. OBJECTIVE: Physical Exam General: Morbidly obese 57 year-old female lying in bed in no apparent distress. HEENT: Normocephalic, atraumatic. Eyes: Anicteric sclerae, conjunctivae clear. ENT: Nasal septum midline, oral mucosa moist. Neck supple, no JVD noticed. Respiratory: Bilaterally clear breath sounds. No use of accessory muscles of respiration. No adventitious breath sounds. Cardiovascular: S1, S2 heard. Regular rate and rhythm. Abdomen: Soft, nontender, and nondistended. Bowel sounds positive in all 4 quadrants. Genitourinary: Deferred. Extremities: No cyanosis, no clubbing, no edema. Peripheral pulses palpable. Left knee surgical dressing with warmth in the surrounding skin. Neurologic: Cranial nerves II through XII grossly intact. The patient is awake, alert, and oriented. Labs & Vitals per chart ASSESSMENT & PLAN 57-year-old female with history of hypertension, asthma, depression, and obesity status post gastric bypass surgery who recently had a left total knee arthroplasty on 01/24/2018. The patient came back to the hospital because of left knee swelling and tenderness, who was admitted to inpatient setting for further treatment and evaluation. 1. Left knee cellulitis at the site of left knee arthroplasty. -Continue antibiotics. -Continue pain control. -Await orthopedic surgery recommendations. 2. Asthma. -Continue inhaled bronchodilators as needed for any active bronchospasms. 3. Essential hypertension. -Continue home antihypertensives. 4. Depression. -Continue SSRIs. 5. Anxiety disorder. -Continue as needed anxiolytics. 6. Fluids, electrolytes, and nutrition. -Regular diet. 7. DVT prophylaxis. -SQ Heparin. 8. Plan. -Continue antimicrobials. -Await clinical improvement. The patient was seen in collaboration with Dr. Stevens. Result Diagram: 02/10/18 0547 02/10/18 0547 Results 24hrs Laboratory Tests Test 02/10/18 05:47 White Blood Count 9.2 Red Blood Count 3.02 L Hemoglobin 8.2 L Hematocrit 25.0 L Mean Corpuscular Volume 82.8 Mean Corpuscular Hemoglobin 27.2 L Mean Corpuscular Hemoglobin Concent 32.8 Red Cell Distribution Width 13.5 Platelet Count 233 Mean Platelet Volume 9.1 Immature Granulocytes % 0.300 Neutrophils % 69.0 Lymphocytes % 16.2 Monocytes % 10.9 Eosinophils % 2.8 Basophils % 0.8 Nucleated Red Blood Cells % 0.0 Immature Granulocytes # 0.030 Neutrophils # 6.3 Lymphocytes # 1.5 Monocytes # 1.0 H Eosinophils # 0.3 Basophils # 0.1 Nucleated Red Blood Cells # 0.0 Sodium Level 140 Potassium Level 3.6 Chloride Level 103 Carbon Dioxide Level 26 Anion Gap 11 Blood Urea Nitrogen 36 H Creatinine 5.63 H Est Glomerular Filtrat Rate mL/min 8 L Glucose Level 95 Calcium Level 8.5 Phosphorus Level 5.8 H Magnesium Level 2.1 Exam/Review of Systems Vital Signs Vitals Vital Signs Date Temp Pulse Resp B/P (MAP) Pulse Ox O2 O2 Flow FiO2 Time Delivery Rate 02/10/18 98.2 78 18 135/61 95 02:06 (85) 02/09/18 Room Air 14:30 Intake and Output 02/09/18 02/09/18 02/10/18 1515:00 23:00 07:00 IntakeIntake Total 780 ml 500 ml 100 ml OutputOutput Total 500 ml 200 ml 200 ml BalanceBalance 280 ml 300 ml -100 ml Medications Medications Current Medications IV Flush (NS 3 ml) 3 ml PER PROTOCOL IV ; Start 02/03/18 at 00:00 Ondansetron HCl (Zofran Inj) 4 mg Q6H PRN IV NAUSEA AND/OR VOMITING Last administered on 02/07/18at 20:58; Admin Dose 4 MG; Start 02/03/18 at 00:00 Albuterol (Ventolin Hfa) 2 puff Q4H RESP THERAPY PRN INH SHORTNESS OF BREATH; Start 02/03/18 at 00:00 Amlodipine Besylate (Norvasc) 10 mg DAILY PO Last administered on 02/09/18at 08:30; Admin Dose 10 MG; Start 02/03/18 at 09:00 Gabapentin (Neurontin) 100 mg TID PO Last administered on 02/09/18at 20:44; Admin Dose 100 MG; Start 02/03/18 at 09:00 Montelukast Sodium (Singulair) 10 mg QHS PO Last administered on 02/09/18 20:45; Admin Dose 10 MG; Start 02/03/18 at 21:00 Oxycodone HCl (Roxicodone) 5 mg Q4H PRN PO PAIN Last administered on 02/10/18 01:42; Admin Dose 5 MG; Start 02/03/18 at 00:00 Sertraline HCl (Zoloft) 25 mg DAILY PO Last administered on 02/08/18 09:58; Admin Dose 25 MG; Start 02/03/18 at 09:00 Tramadol HCl (Ultram) 50 mg Q6H PRN PO PAIN; Start 02/03/18 at 00:00 Zolpidem Tartrate (Ambien) 5 mg HS PRN PO INSOMNIA Last administered on 02/10/18 00:59; Admin Dose 5 MG; Start 02/03/18 at 07:00 Morphine Sulfate (morphine) 3 mg Q4H PRN IV SEVERE PAIN LEVEL 7-10 Last administered on 02/03/18at 03:17; Admin Dose 3 MG; Start 02/03/18 at 03:30 Hydromorphone HCl (Dilaudid) 1 mg Q3H PRN IV SEVERE PAIN LEVEL 7-10 Last administered on 02/08/18at 00:55; Admin Dose 1 MG; Start 02/03/18 at 05:00 Lactobacillus Acidophilus/ Rhamnosus (Culturelle) 1 cap BID PO Last administered on 02/09/18 20:45; Admin Dose 1 CAP; Start 02/03/18 at 21:00 Docusate Sodium (Colace) 100 mg BID PRN PO CONSTIPATION Last administered on 02/06/18 20:54; Admin Dose 100 MG; Start 02/03/18 at 17:00 Albuterol/ Ipratropium (Duoneb) 3 ml Q6H RESP THERAPY PRN HHN SHORTNESS OF BREATH; Start 02/04/18 at 16:00 Acetaminophen (Tylenol Tab) 650 mg Q4H PRN PO MILD PAIN(1-3)OR ELEVATED TEMP Last administered on 02/07/18 22:29; Admin Dose 650 MG; Start 02/04/18 at 16:00 Famotidine (Pepcid) 20 mg BID PO Last administered on 02/09/18at 20:45; Admin Dose 20 MG; Start 02/04/18 at 16:00 Al Hydrox/Mg Hydrox/Simethicone (Mag-Al Plus) 30 ml Q6H PRN PO GASTROINTESTINAL UPSET; Start 02/04/18 at 16:00 Enoxaparin Sodium (Lovenox) 30 mg DAILY SC Last administered on 02/09/18at 08:34; Admin Dose 30 MG; Start 02/07/18 at 09:00 Sodium Chloride 1,000 ml @ 50 mls/hr Q20H IV Last administered on 02/08/18at 09:55; Admin Dose 50 MLS/HR; Start 02/08/18 at 09:00 Doxycycline Hyclate (Vibramycin) 100 mg BID PO Last administered on 02/09/18at 20:44; Admin Dose 100 MG; Start 02/08/18 at 21:00 Ondansetron HCl (Zofran Tab) 4 mg Q4 PRN PO NAUSEA AND/OR VOMITING Last administered on 02/09/18at 20:54; Admin Dose 4 MG; Start 02/08/18 at 21:00 Acetaminophen/ Hydrocodone Bitart ([place] (5/325)) 1 tab Q4H PRN PO MODERATE PAIN LEVEL 4-6; Start 02/09/18 at 02:05 DAVID RO NP Feb 10, 2018 07:47
[2018-02-10] MEDS: DOXYCYCLINE 100 MG TAB PO SCH ×2 (08:16→21:16)
[2018-02-10] MEDS: FAMOTIDINE 20 MG TAB PO SCH ×2 (08:16→21:19)
[2018-02-10] MEDS: SERTRALINE 50 MG TAB PO SCH (08:17)
[2018-02-10] MEDS: GABAPENTIN 100 MG CAP PO SCH ×3 (08:17→21:00)
[2018-02-10] MEDS: LACTOBACILLUS RHAMNOSUS CAP PO SCH ×2 (08:17→21:16)
[2018-02-10] MEDS: ENOXAPARIN 30 MG/0.3 ML SYG SC SCH (08:18)
[2018-02-10] MEDS: AMLODIPINE 10 MG TAB PO SCH (08:19)
[2018-02-10 08:34] VITALS: BP 133/61; PULSE 89; RESP 18
--- NOTE | 2018-02-10 10:05 | PN ---
Date/Time of Note Date/Time of Note DATE: 02/10/18 TIME: 10:04 Assessment/Plan VTE Prophylaxis Risk score (from Ns)>0 risk: 3 SCD applied (from Ns): Yes Pharmacological prophylaxis: other Lines/Catheters IV Catheter Type (from Nrs): Peripheral IV Urinary Cath still in place: No Assessment/Plan Hospital Course SUBJECTIVE: The patient remains stable. She denies any metallic taste in mouth. Denies any pruritus. Denies any weakness. OBJECTIVE: HEENT: Head is normocephalic. NECK: Supple. HEART: Regular rate. LUNGS: Show diminished breath sounds at the base. ABDOMEN: Soft, nontender to palpation without rebound or guarding. EXTREMITIES: Negative for clubbing, cyanosis. No edema. DERMATOLOGIC: No rashes. MUSCULOSKELETAL: No joint effusions. NEUROLOGIC: No change in exam. MEDICATIONS: Have been reviewed. ASSESSMENT AND PLAN: 1. Nonoliguric acute kidney injury with previous baseline creatinine of 0.53 mg/dL. Etiology of acute kidney injury is secondary to acute tubular necrosis from vancomycin nephrotoxicity. Possible acute interstitial nephritis is a consideration. The patient appears to be entering maintenance phase of acute tubular necrosis as creatinine appears to be stabilizing. At this point, continue current treatment plans, supportive care, renally dose all meds. No immediate need for renal replacement therapy. Monitor closely for any signs of overt uremia. will change lovenox to heparin 2. Anemia. Monitor hemoglobin and hematocrit levels. 3. Mineral bone disorder. Monitor calcium and phosphorus levels. 4. Hypertension. Continue current blood pressure regimen. Avoid any LAURENCE inhibitor or ARBs at this time. 5. Cellulitis. Continue current antibiotic regimen. 6. Depression. Continue SSRI. 7. Anxiety disorder. Continue to monitor. Result Diagram: 02/10/18 0547 02/10/18 0547 Results 24hrs Laboratory Tests Test 02/10/18 05:47 White Blood Count 9.2 Red Blood Count 3.02 L Hemoglobin 8.2 L Hematocrit 25.0 L Mean Corpuscular Volume 82.8 Mean Corpuscular Hemoglobin 27.2 L Mean Corpuscular Hemoglobin Concent 32.8 Red Cell Distribution Width 13.5 Platelet Count 233 Mean Platelet Volume 9.1 Immature Granulocytes % 0.300 Neutrophils % 69.0 Lymphocytes % 16.2 Monocytes % 10.9 Eosinophils % 2.8 Basophils % 0.8 Nucleated Red Blood Cells % 0.0 Immature Granulocytes # 0.030 Neutrophils # 6.3 Lymphocytes # 1.5 Monocytes # 1.0 H Eosinophils # 0.3 Basophils # 0.1 Nucleated Red Blood Cells # 0.0 Sodium Level 140 Potassium Level 3.6 Chloride Level 103 Carbon Dioxide Level 26 Anion Gap 11 Blood Urea Nitrogen 36 H Creatinine 5.63 H Est Glomerular Filtrat Rate mL/min 8 L Glucose Level 95 Calcium Level 8.5 Phosphorus Level 5.8 H Magnesium Level 2.1 Exam/Review of Systems Vital Signs Vitals Vital Signs Date Temp Pulse Resp B/P (MAP) Pulse Ox O2 O2 Flow FiO2 Time Delivery Rate 02/10/18 98.0 89 18 133/61 98 Room Air 08:34 (85) Intake and Output 02/09/18 02/09/18 02/10/18 1515:00 23:00 07:00 IntakeIntake Total 780 ml 500 ml 100 ml OutputOutput Total 500 ml 200 ml 200 ml BalanceBalance 280 ml 300 ml -100 ml Medications Medications Current Medications IV Flush (NS 3 ml) 3 ml PER PROTOCOL IV ; Start 02/03/18 at 00:00 Ondansetron HCl (Zofran Inj) 4 mg Q6H PRN IV NAUSEA AND/OR VOMITING Last administered on 02/07/18at 20:58; Admin Dose 4 MG; Start 02/03/18 at 00:00 Albuterol (Ventolin Hfa) 2 puff Q4H RESP THERAPY PRN INH SHORTNESS OF BREATH; Start 02/03/18 at 00:00 Amlodipine Besylate (Norvasc) 10 mg DAILY PO Last administered on 02/10/18at 08:19; Admin Dose 10 MG; Start 02/03/18 at 09:00 Gabapentin (Neurontin) 100 mg TID PO Last administered on 02/10/18at 08:17; Admin Dose 100 MG; Start 02/03/18 at 09:00 Montelukast Sodium (Singulair) 10 mg QHS PO Last administered on 02/09/18at 20:45; Admin Dose 10 MG; Start 02/03/18 at 21:00 Oxycodone HCl (Roxicodone) 5 mg Q4H PRN PO PAIN Last administered on 02/10/18at 01:42; Admin Dose 5 MG; Start 02/03/18 at 00:00 Sertraline HCl (Zoloft) 25 mg DAILY PO Last administered on 02/10/18 08:17; Admin Dose 25 MG; Start 02/03/18 at 09:00 Tramadol HCl (Ultram) 50 mg Q6H PRN PO PAIN; Start 02/03/18 at 00:00 Zolpidem Tartrate (Ambien) 5 mg HS PRN PO INSOMNIA Last administered on 02/10/18at 00:59; Admin Dose 5 MG; Start 02/03/18 at 07:00 Morphine Sulfate (morphine) 3 mg Q4H PRN IV SEVERE PAIN LEVEL 7-10 Last administered on 02/03/18 03:17; Admin Dose 3 MG; Start 02/03/18 at 03:30 Hydromorphone HCl (Dilaudid) 1 mg Q3H PRN IV SEVERE PAIN LEVEL 7-10 Last administered on 02/08/18 00:55; Admin Dose 1 MG; Start 02/03/18 at 05:00 Lactobacillus Acidophilus/ Rhamnosus (Culturelle) 1 cap BID PO Last administered on 02/10/18 08:17; Admin Dose 1 CAP; Start 02/03/18 at 21:00 Docusate Sodium (Colace) 100 mg BID PRN PO CONSTIPATION Last administered on 02/06/18 20:54; Admin Dose 100 MG; Start 02/03/18 at 17:00 Albuterol/ Ipratropium (Duoneb) 3 ml Q6H RESP THERAPY PRN HHN SHORTNESS OF BR EATH; Start 02/04/18 at 16:00 Acetaminophen (Tylenol Tab) 650 mg Q4H PRN PO MILD PAIN(1-3)OR ELEVATED TEMP Last administered on 02/07/18at 22:29; Admin Dose 650 MG; Start 02/04/18 at 16:00 Famotidine (Pepcid) 20 mg BID PO Last administered on 02/10/18 08:16; Admin Dose 20 MG; Start 02/04/18 at 16:00 Al Hydrox/Mg Hydrox/Simethicone (Mag-Al Plus) 30 ml Q6H PRN PO GASTROINTESTINAL UPSET; Start 02/04/18 at 16:00 Enoxaparin Sodium (Lovenox) 30 mg DAILY SC Last administered on 02/10/18 08: 18; Admin Dose 30 MG; Start 02/07/18 at 09:00 Sodium Chloride 1,000 ml @ 50 mls/hr Q20H IV Last administered on 02/08/18at 09:55; Admin Dose 50 MLS/HR; Start 02/08/18 at 09:00 Doxycycline Hyclate (Vibramycin) 100 mg BID PO Last administered on 02/10/18at 08:16; Admin Dose 100 MG; Start 02/08/18 at 21:00 Ondansetron HCl (Zofran Tab) 4 mg Q4 PRN PO NAUSEA AND/OR VOMITING Last administered on 02/09/18at 20:54; Admin Dose 4 MG; Start 02/08/18 at 21:00 Acetaminophen/ Hydrocodone Bitart ([place] (5/325)) 1 tab Q4H PRN PO MODERATE PAIN LEVEL 4-6; Start 02/09/18 at 02:05 TORY WINSTON DO Feb 10, 2018 10:05
[2018-02-10 14:22] VITALS: BP 127/61; PULSE 78; RESP 18
--- NOTE | 2018-02-10 15:31 | NUR ---
RN Notes: Patient remains alert and oriented, afebrile, no sob noted, no acute distress noted, denies pain/discomfort as of this time. No IV access, [place] aware. Able to get up and ambulate with walker and standby assist, denies n/v, no c/o feeling dizzy. Surgical wound on left knee dry and intact, no visible drainage noted, kept clean and dry. Hourly rounding done, call light within reach. Needs attended. Will continue to monitor until the end of the shift. Addendum: 02/10/18 at 1536 by AMIRAH CROOK RN Bladder Scan done around 1400 with 42ml urine volume, no bladder distention noted, pt able to urinate and no c/o pain, fluid encouraged as tolerated.
--- NOTE | 2018-02-10 15:54 | CONS ---
Date/Time of Note Date/Time of Note DATE: 02/10/18 TIME: 15:54 Assessment/Plan Assessment/Plan Hospital Course ID PROGRESS NOTE CURRENT ABX: DAY # => Doxycycline + Ceftriaxone 02/10/18 0502/10/18 05 24H INTERVAL SUMMARY * A/A/O, morbid obese, sitting up in chair, tells me "I am doing much better, thank you" * No new issues, VSS, NAD, no complaints MICRO * (-) MRSA Nares PHYSICAL EXAMINATION: GENERAL: Afebrile, VSS, HEENT: AT, NC, anicteric NECK: Supple, trach CHEST: Equal chest rise bilaterally, without dyspnea on observation HEART: Pulse RRR ABDOMEN: Soft / NT EXTREMITIES: Warm, dry SKIN: No rash, no diaphoresis ID ASSESSMENT 57 yo F admit with: 1. Resolving superficial cellulitis of left knee 2. Acute renal failure -- Vanco IV & Zosyn DC'd 3. Morbid obesity 4. Hypertension (-)MRSA Nares ABX ALLERGIES: NKDA INVASIVES: PI CURRENT ABX: DAY == Doxycycline s/p Vanco IV & Zosyn ID RECOMMENDATIONS/PLAN: Continue Doxy == she has no IV access, if cellulitis does not improve on Doxy, consider addition of Augmentin .DC bladder scan . Result Diagram: 02/10/1854602/10/18546 Results 24hrs Laboratory Tests Test 02/10/18 05:47 White Blood Count 9.2 Red Blood Count 3.02 L Hemoglobin 8.2 L Hematocrit 25.0 L Mean Corpuscular Volume 82.8 Mean Corpuscular Hemoglobin 27.2 L Mean Corpuscular Hemoglobin Concent 32.8 Red Cell Distribution Width 13.5 Platelet Count 233 Mean Platelet Volume 9.1 Immature Granulocytes % 0.300 Neutrophils % 69.0 Lymphocytes % 16.2 Monocytes % 10.9 Eosinophils % 2.8 Basophils % 0.8 Nucleated Red Blood Cells % 0.0 Immature Granulocytes # 0.030 Neutrophils # 6.3 Lymphocytes # 1.5 Monocytes # 1.0 H Eosinophils # 0.3 Basophils # 0.1 Nucleated Red Blood Cells # 0.0 Sodium Level 140 Potassium Level 3.6 Chloride Level 103 Carbon Dioxide Level 26 Anion Gap 11 Blood Urea Nitrogen 36 H Creatinine 5.63 H Est Glomerular Filtrat Rate mL/min 8 L Glucose Level 95 Calcium Level 8.5 Phosphorus Level 5.8 H Magnesium Level 2.1 Consultation Date/Type/Reason Admit Date/Time Feb 03, 2018 at 18:13 Initial Consult Date Exam/Review of Systems Vital Signs Vitals Vital Signs Date Temp Pulse Resp B/P (MAP) Pulse Ox O2 O2 Flow FiO2 Time Delivery Rate 02/10/18 98.0 78 18 127/61 96 Room Air 14:22 (83) Intake and Output 02/09/18 02/09/18 02/10/18 1515:00 23:00 07:00 IntakeIntake Total 780 ml 500 ml 100 ml OutputOutput Total 500 ml 200 ml 200 ml BalanceBalance 280 ml 300 ml -100 ml Medications Medications Current Medications IV Flush (NS 3 ml) 3 ml PER PROTOCOL IV ; Start 02/03/18 at 00:00 Ondansetron HCl (Zofran Inj) 4 mg Q6H PRN IV NAUSEA AND/OR VOMITING Last administered on 02/07/18at 20:58; Admin Dose 4 MG; Start 02/03/18 at 00:00 Albuterol (Ventolin Hfa) 2 puff Q4H RESP THERAPY PRN INH SHORTNESS OF BREATH; Start 02/03/18 at 00:00 Amlodipine Besylate (Norvasc) 10 mg DAILY PO Last administered on 02/10/18at 08:19; Admin Dose 10 MG; Start 02/03/18 at 09:00 Gabapentin (Neurontin) 100 mg TID PO Last administered on 02/10/18at 12:35; Admin Dose 100 MG; Start 02/03/18 at 09:00 Montelukast Sodium (Singulair) 10 mg QHS PO Last administered on 02/09/18at 20:45; Admin Dose 10 MG; Start 02/03/18 at 21:00 Oxycodone HCl (Roxicodone) 5 mg Q4H PRN PO PAIN Last administered on 02/10/18at 01:42; Admin Dose 5 MG; Start 02/03/18 at 00:00 Sertraline HCl (Zoloft) 25 mg DAILY PO Last administered on 02/10/18at 08:17; Admin Dose 25 MG; Start 02/03/18 at 09:00 Tramadol HCl (Ultram) 50 mg Q6H PRN PO PAIN; Start 02/03/18 at 00:00 Zolpidem Tartrate (Ambien) 5 mg HS PRN PO INSOMNIA Last administered on 02/10 00:59; Admin Dose 5 MG; Start 02/03/18 at 07:00 Morphine Sulfate (morphine) 3 mg Q4H PRN IV SEVERE PAIN LEVEL 7-10 Last administered on 02/03/18 03:17; Admin Dose 3 MG; Start 02/03/18 at 03:30 Hydromorphone HCl (Dilaudid) 1 mg Q3H PRN IV SEVERE PAIN LEVEL 7-10 Last administered on 02/08/18 00:55; Admin Dose 1 MG; Start 02/03/18 at 05:00 Lactobacillus Acidophilus/ Rhamnosus (Culturelle) 1 cap BID PO Last administered on 02/10/18 08:17; Admin Dose 1 CAP; Start 02/03/18 at 21:00 Docusate Sodium (Colace) 100 mg BID PRN PO CONSTIPATION Last administered on 02/06/18 20:54; Admin Dose 100 MG; Start 02/03/18 at 17:00 Albuterol/ Ipratropium (Duoneb) 3 ml Q6H RESP THERAPY PRN HHN SHORTNESS OF BREATH; Start 02/04/18 at 16:00 Acetaminophen (Tylenol Tab) 650 mg Q4H PRN PO MILD PAIN(1-3)OR ELEVATED TEMP Last administered on 02/07/18at 22:29; Admin Dose 650 MG; Start 02/04/18 at 16:00 Famotidine (Pepcid) 20 mg BID PO Last administered on 02/10/18 08:16; Admin Dose 20 MG; Start 02/04/18 at 16:00 Al Hydrox/Mg Hydrox/Simethicone (Mag-Al Plus) 30 ml Q6H PRN PO GASTROINTESTINAL UPSET; Start 02/04/18 at 16:00 Sodium Chloride 1,000 ml @ 50 mls/hr Q20H IV Last administered on 02/08/18at 09:55; Admin Dose 50 MLS/HR; Start 02/08/18 at 09:00 Doxycycline Hyclate (Vibramycin) 100 mg BID PO Last administered on 02/10/18at 08:16; Admin Dose 100 MG; Start 02/08/18 at 21:00 Ondansetron HCl (Zofran Tab) 4 mg Q4 PRN PO NAUSEA AND/OR VOMITING Last administered on 02/09/18at 20:54; Admin Dose 4 MG; Start 02/08/18 at 21:00 Acetaminophen/ Hydrocodone Bitart ([place] (5/325)) 1 tab Q4H PRN PO MODERATE PAIN LEVEL 4-6; Start 02/09/18 at 02:05 Heparin Sodium (Porcine) (Heparin (5000 Units/1ml)) 5,000 unit BID SC ; Start 02/11/18 at 09:00 OSMAR WOLFE NP Feb 10, 2018 15:54
--- NOTE | 2018-02-10 17:33 | NUR ---
RN Notes: No significant events as of this time. Report gave to DILLON Beebe for continuity of care.
--- NOTE | 2018-02-10 18:27 | NUR ---
EOSS: PATIENT IS STABLE, UP AND ABOUT IN HER ROOM, VOIDING FREELY WITHOUT DIFFICULTY, VITALS STABLE. NO C/O PAIN.
[2018-02-10] MEDS ORDERED: CEFTRIAXONE 2 GM/50 ML (PMX) 50 ML IVPB SCH (18:30)
[2018-02-10 20:00] VITALS: BP 143/71; PULSE 76; RESP 18
[2018-02-10] MEDS: MONTELUKAST 10 MG TAB PO SCH (21:00)
--- NOTE | 2018-02-10 21:15 | NUR ---
pt complained of on and off 6/10 pain on bilateral lower abdomen, and denies any other symptoms. per pt, the pain started yesterday but she did not paid attention since it comes and goes. area is non tender to touch during assessment with no abdominal or bladder distention noted. dr bills was notified with order for ua and urine culture. pt updated. noted. will continue to monitor. Addendum: 02/11/18 at 0608 by NAV NICK RN no acute changes. pt remained afebrile with vss. medicated with oxycodone for pain with relief. needs attended to and anticipated. will continue to monitor and will endorse accordingly.
[2018-02-11 02:00] VITALS: BP 133/63; PULSE 79; RESP 18
[2018-02-11 08:39] VITALS: BP 179/84; PULSE 84; RESP 17
--- NOTE | 2018-02-11 09:14 | PN ---
Date/Time of Note Date/Time of Note DATE: 02/11/18 TIME: 09:14 Assessment/Plan VTE Prophylaxis Risk score (from Ns)>0 risk: 2 SCD applied (from Ns): Yes Pharmacological prophylaxis: other Lines/Catheters IV [facility] Type (from [facility]): Peripheral IV Urinary Cath still in place: No Assessment/Plan Hospital Course SUBJECTIVE: The patient remains stable. She denies any metallic taste in mouth. Denies any pruritus. Denies any weakness. OBJECTIVE: HEENT: Head is normocephalic. NECK: Supple. HEART: Regular rate. LUNGS: Show diminished breath sounds at the base. ABDOMEN: Soft, nontender to palpation without rebound or guarding. EXTREMITIES: Negative for clubbing, cyanosis. No edema. DERMATOLOGIC: No rashes. MUSCULOSKELETAL: No joint effusions. NEUROLOGIC: No change in exam. MEDICATIONS: Have been reviewed. ASSESSMENT AND PLAN: 1. Nonoliguric acute kidney injury with previous baseline creatinine of 0.53 mg/dL. Etiology of acute kidney injury is secondary to acute tubular necrosis from vancomycin nephrotoxicity. Possible acute interstitial nephritis is a consideration. The patient appears to be entering maintenance phase of acute tubular necrosis as creatinine appears to be stabilizing. At this point, continue current treatment plans, supportive care, renally dose all meds. No immediate need for renal replacement therapy. Monitor closely for any signs of overt uremia. will change lovenox to heparin 2. Anemia. Monitor hemoglobin and hematocrit levels. 3. Mineral bone disorder. Monitor calcium and phosphorus levels. 4. Hypertension. Continue current blood pressure regimen. Avoid any LAURENCE inhibitor or ARBs at this time. 5. Cellulitis. Continue current antibiotic regimen. 6. Depression. Continue SSRI. 7. Anxiety disorder. Continue to monitor. Result Diagram: 02/11/18 0446 02/11/18 0446 Results 24hrs Laboratory Tests Test 02/10/18 23:10 02/11/18 04:46 Urine Color YELLOW Urine Clarity SLIGHTLY CLOUDY A Urine pH 5.0 Urine Specific [place] 1.004 Urine Ketones NEGATIVE Urine Nitrite NEGATIVE Urine Bilirubin NEGATIVE Urine Urobilinogen NEGATIVE Urine Leukocyte Esterase TRACE A Urine Microscopic RBC 1 Urine Microscopic WBC 5 Urine Bacteria FEW A Urine Hemoglobin 2+ H Urine Glucose NEGATIVE Urine Total Protein NEGATIVE White Blood Count 9.0 Red Blood Count 3.12 L Hemoglobin 8.5 L Hematocrit 26.5 L Mean Corpuscular Volume 84.9 Mean Corpuscular Hemoglobin 27.2 L Mean Corpuscular Hemoglobin Concent 32.1 Red Cell Distribution Width 13.3 Platelet Count 248 Mean Platelet Volume 9.8 Immature Granulocytes % 0.400 Neutrophils % 70.2 Lymphocytes % 13.9 L Monocytes % 11.5 H Eosinophils % 3.3 Basophils % 0.7 Nucleated Red Blood Cells % 0.0 Immature Granulocytes # 0.040 H Neutrophils # 6.3 Lymphocytes # 1.3 Monocytes # 1.0 H Eosinophils # 0.3 Basophils # 0.1 Nucleated Red Blood Cells # 0.0 Sodium Level 137 Potassium Level 3.6 Chloride Level 102 Carbon Dioxide Level 25 Anion Gap 10 Blood Urea Nitrogen 39 H Creatinine 5.34 H Est Glomerular Filtrat Rate mL/min 8 L Glucose Level 101 Calcium Level 8.7 Phosphorus Level 6.0 H Magnesium Level 2.1 Exam/Review of Systems Vital Signs Vitals Vital Signs Date Temp Pulse Resp B/P (MAP) Pulse Ox O2 O2 Flow FiO2 Time Delivery Rate 02/11/18 98.4 84 17 179/84 95 Room Air 08:39 (115) Intake and Output 02/10/18 02/10/18 02/11/18 1515:00 23:00 07:00 IntakeIntake Total 460 ml 500 ml OutputOutput Total 150 ml BalanceBalance 310 ml 500 ml Medications Medications Current Medications IV Flush (NS 3 ml) 3 ml PER PROTOCOL IV ; Start 02/03/18 at 00:00 Ondansetron HCl (Zofran Inj) 4 mg Q6H PRN IV NAUSEA AND/OR VOMITING Last a dministered on 02/07/18at 20:58; Admin Dose 4 MG; Start 02/03/18 at 00:00 Albuterol (Ventolin Hfa) 2 puff Q4H RESP THERAPY PRN INH SHORTNESS OF BREATH; Start 02/03/18 at 00:00 Amlodipine Besylate (Norvasc) 10 mg DAILY PO Last administered on 02/10/18at 08:19; Admin Dose 10 MG; Start 02/03/18 at 09:00 Gabapentin (Neurontin) 100 mg TID PO Last administered on 02/10/18at 12:35; Admin Dose 100 MG; Start 02/03/18 at 09:00 Montelukast Sodium (Singulair) 10 mg QHS PO Last administered on 02/09/18 20:45; Admin Dose 10 MG; Start 02/03/18 at 21:00 Oxycodone HCl (Roxicodone) 5 mg Q4H PRN PO PAIN Last administered on 02/10/18 21:17; Admin Dose 5 MG; Start 02/03/18 at 00:00 Sertraline HCl (Zoloft) 25 mg DAILY PO Last administered on 02/10/18 08:17; Admin Dose 25 MG; Start 02/03/18 at 09:00 Tramadol HCl (Ultram) 50 mg Q6H PRN PO PAIN; Start 02/03/18 at 00:00 Zolpidem Tartrate (Ambien) 5 mg HS PRN PO INSOMNIA Last administered on 02/10/18 23:13; Admin Dose 5 MG; Start 02/03/18 at 07:00 Morphine Sulfate (morphine) 3 mg Q4H PRN IV SEVERE PAIN LEVEL 7-10 Last administered on 02/03/18 03:17; Admin Dose 3 MG; Start 02/03/18 at 03:30 Hydromorphone HCl (Dilaudid) 1 mg Q3H PRN IV SEVERE PAIN LEVEL 7-10 Last administered on 02/08/18 00:55; Admin Dose 1 MG; Start 02/03/18 at 05:00 Lactobacillus Acidophilus/ Rhamnosus (Culturelle) 1 cap BID PO Last administered on 02/10/18 21:16; Admin Dose 1 CAP; Start 02/03/18 at 21:00 Docusate Sodium (Colace) 100 mg BID PRN PO CONSTIPATION Last administered on 02/06/18 20:54; Admin Dose 100 MG; Start 02/03/18 at 17:00 Albuterol/ Ipratropium (Duoneb) 3 ml Q6H RESP THERAPY PRN HHN SHORTNESS OF BREATH; Start 02/04/18 at 16:00 Acetaminophen (Tylenol Tab) 650 mg Q4H PRN PO MILD PAIN(1-3)OR ELEVATED TEMP Last administered on 02/07/18 22:29; Admin Dose 650 MG; Start 02/04/18 at 16:00 Famotidine (Pepcid) 20 mg BID PO Last administered on 02/10/18 21:19; Admin Dose 20 MG; Start 02/04/18 at 16:00 Al Hydrox/Mg Hydrox/Simethicone (Mag-Al Plus) 30 ml Q6H PRN PO GASTROINTESTINAL UPSET; Start 02/04/18 at 16:00 Sodium Chloride 1,000 ml @ 50 mls/hr Q20H IV Last administered on 02/08/18at 09:55; Admin Dose 50 MLS/HR; Start 02/08/18 at 09:00 Doxycycline Hyclate (Vibramycin) 100 mg BID PO Last administered on 02/10/18at 21:16; Admin Dose 100 MG; Start 02/08/18 at 21:00 Ondansetron HCl (Zofran Tab) 4 mg Q4 PRN PO NAUSEA AND/OR VOMITING Last administered on 02/09/18at 20:54; Admin Dose 4 MG; Start 02/08/18 at 21:00 Acetaminophen/ Hydrocodone Bitart ([place] (5/325)) 1 tab Q4H PRN PO MODERATE PAIN LEVEL 4-6; Start 02/09/18 at 02:05 Heparin Sodium (Porcine) (Heparin (5000 Units/1ml)) 5,000 unit BID SC ; Start 02/11/18 at 09:00 TORY WINSTON DO Feb 11, 2018 09:14
[2018-02-11] MEDS: FAMOTIDINE 20 MG TAB PO SCH ×2 (09:16→20:32)
[2018-02-11] MEDS: SERTRALINE 50 MG TAB PO SCH (09:18)
[2018-02-11] MEDS: DOXYCYCLINE 100 MG TAB PO SCH ×2 (09:19→20:32)
[2018-02-11] MEDS: AMLODIPINE 10 MG TAB PO SCH (09:19)
[2018-02-11] MEDS: LACTOBACILLUS RHAMNOSUS CAP PO SCH ×2 (09:19→20:32)
[2018-02-11] MEDS: GABAPENTIN 100 MG CAP PO SCH ×3 (09:19→20:32)
[2018-02-11] MEDS: HEPARIN 5,000 UNIT/1 ML VIAL SC SCH ×2 (09:21→20:39)
--- NOTE | 2018-02-11 10:40 | NUR ---
Dr. Carlin is here. Upset that Physical therapy isn't seeing the pt. Told him I would look into it. Pt. has no orders for physical therapy but said she has been getting up with nursing. Physical therapy ordered. Ayush PT called to see if the pt. could be seen today. Said he would try.
[2018-02-11] MEDS: ONDANSETRON 4 MG TAB PO PRN (12:00)
--- NOTE | 2018-02-11 12:31 | NUR ---
PT EVALUATION , Therapy day number 1 Evaluation Start Time 13:45 Evaluation Total Time 0 min Subjective Current complaint of pain Pain Scale NUMERIC Pain Intensity 3 (0-10) Patient Stated Goal for Pain Relief 0 (0-10) Pain Level Comment LT KNEE Pre Treatment Vital Signs Stable Yes - BP: 127/61 HR:83 Exercise Assessment Label Bilat Upper Extremity Exercise Type Active ROM Additional Exercise Comments PER TKA PROTOCOL Supine to Sit Independent Transfer Sit to Stand Ability Stand by Assist Bed Mobility Sit to Supine Independent Bed Transfer Ability Stand by Assist Chair Transfer Ability Stand by Assist Sitting Tolerance 15 min Patient uses wheelchair Not Applicable Gait Assist Levels Contact Guard Assist Assistive Devices Front Wheel Walker Ambulation Distance 100 feet Additional Gait Comments SLOW BOB . Weight Bearing Assessment Label Left Lower Extremity Weight Bearing Status Weight Bearing as Aaron Additional Stairs Assist Comments TBA Static Sitting Balance Good Dynamic Sitting Balance Good Standing Static Balance Good Dynamic Standing Balance Good Additional Balance Assessments Comments W/FWW Safety Judgement Good Activity Tolerance Fair Post Treatment Pain Intensity 2 0-10 Quality Indicators Dizziness Variance Documentation P/S SEE PT NOTE . PT Technical Record Comment PT EVALUATION , S: RN CLEARED , PATIENT AGREEABLE . O: PATIENT IS A 57 Y/O FEMALE WITH PMH: HTN , ASTHMA, DEPRESSION AND ANXIETY, S/P GASTRIC BYPASS, OA , MINERAL BONE DISEASE ON 01/24/18 UNDERWENT LT TKA AND RE-ADMITTED ON 02/02/18 DUE TO LT KNEE CELLULITIS AT THE SITE OF LT TKA .PATIENT FOUND IN BED ALERT AND ORIENTED TO SELF , SITUATION , PERFORMED THERA EXE'S OF LT KNEE PER TKA PROTOCOL, INSTRUCTED HER IN HEP, A/ROM LT KNEE IN SEATED ADE IS 75 DEGREE , LT KNEE SLIGHTLY SWOLLEN AND WARM TO TO TOUCH , GAIT TR W/FWW PERFORMED 100' CG / SBA WITH OCC,VC'S TO INCREASE STEP LENGTH , GAIT W/FWW RECIPROCAL, STEADY , STABLE , BUT LIMITED DISTANCE DUE TO FATIGUES EASILY , VS STABLE , TOLERATED TREATMENT WELL , PATIENT IS CLEARED TO AMBULATE WITH NSG STAFF .RN NOTIFIED PATIENT'S PARTICIPATION IN PT SESSION . A: PATIENT LIVES IN AN APARTMENT 1 ST FLOOR WITH 10 ENTRY STAIRS , PATIENT OWNS FWW AND HAS BEEN MODIFIED IND WITH HER ADL'S / AMBULATION WITH FWW , PLAN TO RETURN HOME ONCE CLEARED BY MD . NO DME NEEDS , PT RECOMMEND TO CONTINUE WITH PT FOLLOW UP. P: CONTINUE WITH POC DAILY X6 .
--- NOTE | 2018-02-11 13:05 | CONS ---
DATE OF ADMISSION: 02/03/2018 DATE OF CONSULTATION: HISTORY OF PRESENT ILLNESS: Ms. Metzger is a 57-year-old obese female who underwent a left total kne e arthroplasty on 01/24/2018. She was admitted for postoperative cellulitis. She received IV vancom ycin. She denies any fevers, chills. She denies any pain in her knee. She has not worked with [employer]. She has no complaints. Date of surgery 01/24/2018. PHYSICAL EXAMINATION GENERAL: The patient is resting comfortably in no acute distress. VITAL SIGNS: Temperature 98.4, 84 pulse, 17 respiratory rate, blood pressure 179/84. EXTREMITIES: Left knee exam, a healed midline incision. No erythema, warmth. There is cellulitis, no drainage. 0 to 70 degrees range of motion, stable to varus valgus stress. Calf is soft with nega tive Homans, 5/5 function of quadriceps, tibialis anterior, gastric soleus. LABORATORY DATA: White blood cell count 9.0, C-reactive protein 7.3. IMPRESSION: A 57-year-old female status post left total knee arthroplasty with cellulitis, which has resolved. PLAN: Ms. Metzger had postoperative cellulitis that has resolved. She has no evidence of postoperat agus joint infection. She can be weightbearing as tolerated. She requires postoperative DVT prophyla xis, including Aspirin 81 mg twice daily. She requires postoperative physical therapy. She can be d ischarged from orthopedic standpoint with outpatient followup. Dictated By: GARFIELD GUARDADO MD SS/NTS Conf#: [id number] DID#: [id number] CC: ZAIRA BEY MD; ANDRIA JONES MD; CALDERON LAYTON MD;*EndCC*
--- NOTE | 2018-02-11 14:40 | PN ---
Date/Time of Note Date/Time of Note DATE: 02/11/18 TIME: 14:40 Assessment/Plan VTE Prophylaxis Risk score (from Nsg)>0 risk: 3 SCD applied (from Nsg): Yes Pharmacological prophylaxis: heparin Lines/Catheters IV Catheter Type (from Nrsg): Peripheral IV Urinary Cath still in place: No Assessment/Plan Hospital Course SUBJECTIVE: Pain at the left knee well controlled. Complains of abdominal pain and constipation. OBJECTIVE: Physical Exam General: Morbidly obese 57 year-old female lying in bed in no apparent distress. HEENT: Normocephalic, atraumatic. Eyes: Anicteric sclerae, conjunctivae clear. ENT: Nasal septum midline, oral mucosa moist. Neck supple, no JVD noticed. Respiratory: Bilaterally clear breath sounds. No use of accessory muscles of respiration. No adventitious breath sounds. Cardiovascular: S1, S2 heard. Regular rate and rhythm. Abdomen: Soft, nontender, and nondistended. Bowel sounds positive in all 4 quadrants. Genitourinary: Deferred. Extremities: No cyanosis, no clubbing, no edema. Peripheral pulses palpable. Left knee surgical dressing with warmth in the surrounding skin. Neurologic: Cranial nerves II through XII grossly intact. The patient is awake, alert, and oriented. Labs & Vitals per chart ASSESSMENT & PLAN 57-year-old female with history of hypertension, asthma, depression, and obesity status post gastric bypass surgery who recently had a left total knee arthroplasty on 01/24/2018. The patient came back to the hospital because of left knee swelling and tenderness, who was admitted to inpatient setting for further treatment and evaluation. 1. Left knee cellulitis at the site of left knee arthroplasty. -Continue antibiotics. -Continue pain control. -S/P evaluation by orthopedic surgery. 2. Asthma. -Continue inhaled bronchodilators as needed for any active bronchospasms. 3. Essential hypertension. -Continue home antihypertensives. 4. Depression. -Continue SSRIs. 5. Anxiety disorder. -Continue as needed anxiolytics. 6. Fluids, electrolytes, and nutrition. -Regular diet. 7. DVT prophylaxis. -SQ Heparin. 8. Plan. -Continue antimicrobials. -Await clinical improvement. -Start routine stool softeners. The patient was seen in collaboration with Dr. Stevens. Result Diagram: 02/11/18 0446 02/11/18 0446 Results 24hrs Laboratory Tests Test 02/10/18 23:10 02/11/18 04:46 Urine Color YELLOW Urine Clarity SLIGHTLY CLOUDY A Urine pH 5.0 Urine Specific [place] 1.004 Urine Ketones NEGATIVE Urine Nitrite NEGATIVE Urine Bilirubin NEGATIVE Urine Urobilinogen NEGATIVE Urine Leukocyte Esterase TRACE A Urine Microscopic RBC 1 Urine Microscopic WBC 5 Urine Bacteria FEW A Urine Hemoglobin 2+ H Urine Glucose NEGATIVE Urine Total Protein NEGATIVE White Blood Count 9.0 Red Blood Count 3.12 L Hemoglobin 8.5 L Hematocrit 26.5 L Mean Corpuscular Volume 84.9 Mean Corpuscular Hemoglobin 27.2 L Mean Corpuscular Hemoglobin Concent 32.1 Red Cell Distribution Width 13.3 Platelet Count 248 Mean Platelet Volume 9.8 Immature Granulocytes % 0.400 Neutrophils % 70.2 Lymphocytes % 13.9 L Monocytes % 11.5 H Eosinophils % 3.3 Basophils % 0.7 Nucleated Red Blood Cells % 0.0 Immature Granulocytes # 0.040 H Neutrophils # 6.3 Lymphocytes # 1.3 Monocytes # 1.0 H Eosinophils # 0.3 Basophils # 0.1 Nucleated Red Blood Cells # 0.0 Sodium Level 137 Potassium Level 3.6 Chloride Level 102 Carbon Dioxide Level 25 Anion Gap 10 Blood Urea Nitrogen 39 H Creatinine 5.34 H Est Glomerular Filtrat Rate mL/min 8 L Glucose Level 101 Calcium Level 8.7 Phosphorus Level 6.0 H Magnesium Level 2.1 Exam/Review of Systems Vital Signs Vitals Vital Signs Date Temp Pulse Resp B/P (MAP) Pulse Ox O2 O2 Flow FiO2 Time Delivery Rate 02/11/18 98.4 84 17 179/84 95 Room Air 08:39 (115) Intake and Output 02/10/18 02/10/18 02/11/18 1515:00 23:00 07:00 IntakeIntake Total 460 ml 500 ml OutputOutput Total 150 ml BalanceBalance 310 ml 500 ml Medications Medications Current Medications IV Flush (NS 3 ml) 3 ml PER PROTOCOL IV ; Start 02/03/18 at 00:00 Ondansetron HCl (Zofran Inj) 4 mg Q6H PRN IV NAUSEA AND/OR VOMITING Last administered on 02/07/18at 20:58; Admin Dose 4 MG; Start 02/03/18 at 00:00 Albuterol (Ventolin Hfa) 2 puff Q4H RESP THERAPY PRN INH SHORTNESS OF BREATH; Start 02/03/18 at 00:00 Amlodipine Besylate (Norvasc) 10 mg DAILY PO Last administered on 02/11/18 09:19; Admin Dose 10 MG; Start 02/03/18 at 09:00 Gabapentin (Neurontin) 100 mg TID PO Last administered on 02/11/18 12:28; Admin Dose 100 MG; Start 02/03/18 at 09:00 Montelukast Sodium (Singulair) 10 mg QHS PO Last administered on 02/09/18 20:45; Admin Dose 10 MG; Start 02/03/18 at 21:00 Oxycodone HCl (Roxicodone) 5 mg Q4H PRN PO PAIN Last administered on 02/10/18 21:17; Admin Dose 5 MG; Start 02/03/18 at 00:00 Sertraline HCl (Zoloft) 25 mg DAILY PO Last administered on 02/11/18 09:18; Admin Dose 25 MG; Start 02/03/18 at 09:00 Tramadol HCl (Ultram) 50 mg Q6H PRN PO PAIN; Start 02/03/18 at 00:00 Zolpidem Tartrate (Ambien) 5 mg HS PRN PO INSOMNIA Last administered on 02/10/18 23:13; Admin Dose 5 MG; Start 02/03/18 at 07:00 Morphine Sulfate (morphine) 3 mg Q4H PRN IV SEVERE PAIN LEVEL 7-10 Last administered on 02/03/18 03:17; Admin Dose 3 MG; Start 02/03/18 at 03:30 Hydromorphone HCl (Dilaudid) 1 mg Q3H PRN IV SEVERE PAIN LEVEL 7-10 Last administered on 02/08/18 00:55; Admin Dose 1 MG; Start 02/03/18 at 05:00 Lactobacillus Acidophilus/ Rhamnosus (Culturelle) 1 cap BID PO Last administered on 02/11/18 09:19; Admin Dose 1 CAP; Start 02/03/18 at 21:00 Docusate Sodium (Colace) 100 mg BID PRN PO CONSTIPATION Last administered on 02/06/18 20:54; Admin Dose 100 MG; Start 02/03/18 at 17:00 Albuterol/ Ipratropium (Duoneb) 3 ml Q6H RESP THERAPY PRN HHN SHORTNESS OF BREATH; Start 02/04/18 at 16:00 Acetaminophen (Tylenol Tab) 650 mg Q4H PRN PO MILD PAIN(1-3)OR ELEVATED TEMP Last administered on 02/07/18at 22:29; Admin Dose 650 MG; Start 02/04/18 at 16:00 Famotidine (Pepcid) 20 mg BID PO Last administered on 02/11/18at 09:16; Admin Dose 20 MG; Start 02/04/18 at 16:00 Al Hydrox/Mg Hydrox/Simethicone (Mag-Al Plus) 30 ml Q6H PRN PO GASTROINTESTINAL UPSET; Start 02/04/18 at 16:00 Sodium Chloride 1,000 ml @ 50 mls/hr Q20H IV Last administered on 02/08/18at 09:55; Admin Dose 50 MLS/HR; Start 02/08/18 at 09:00 Doxycycline Hyclate (Vibramycin) 100 mg BID PO Last administered on 02/11/18at 09:19; Admin Dose 100 MG; Start 02/08/18 at 21:00 Ondansetron HCl (Zofran Tab) 4 mg Q4 PRN PO NAUSEA AND/OR VOMITING Last administered on 02/11/18at 12:00; Admin Dose 4 MG; Start 02/08/18 at 21:00 Acetaminophen/ Hydrocodone Bitart ([place] (5/325)) 1 tab Q4H PRN PO MODERATE PAIN LEVEL 4-6; Start 02/09/18 at 02:05 Heparin Sodium (Porcine) (Heparin (5000 Units/1ml)) 5,000 unit BID SC Last administered on 02/11/18at 09:21; Admin Dose 5,000 UNIT; Start 02/11/18 at 09:00 DAVID RO NP Feb 11, 2018 14:40
--- NOTE | 2018-02-11 15:16 | CONS ---
Date/Time of Note Date/Time of Note DATE: 02/11/18 TIME: 15:09 Assessment/Plan Assessment/Plan Hospital Course ID PROGRESS NOTE CURRENT ABX: DAY # => Doxycycline 02/11/1844502/11/18445 24H INTERVAL SUMMARY * Very pleasant, polite, coping as best as possible, discouraged about ALYX -- yet expresses understanding and hoping for full recovery * DSG has been removed for left knee with much improvement in pain, edema, erythema MICRO * (-) MRSA Nares PHYSICAL EXAMINATION: GENERAL: Afebrile, VSS, HEENT: AT, NC, anicteric NECK: Supple, trach CHEST: Equal chest rise bilaterally, without dyspnea on observation HEART: Pulse RRR ABDOMEN: Soft / NT EXTREMITIES: Warm, dry SKIN: No rash, no diaphoresis ID ASSESSMENT 57 yo F admit with: 1. Resolving superficial cellulitis of left knee 2. Acute renal failure -- Vanco IV & Zosyn DC'd 3. Morbid obesity 4. Hypertension (-)MRSA Nares ABX ALLERGIES: NKDA INVASIVES: PI CURRENT ABX: DAY == Doxycycline s/p Vanco IV & Zosyn ID RECOMMENDATIONS/PLAN: Continue Doxy == she has no IV access, cellulitis is much improved --- still at risk would continue Doxy . Result Diagram: 02/11/1844502/11/18445 Results 24hrs Laboratory Tests Test 02/10/18 23:10 02/11/18 04:46 Urine Color YELLOW Urine Clarity SLIGHTLY CLOUDY A Urine pH 5.0 Urine Specific [place] 1.004 Urine Ketones NEGATIVE Urine Nitrite NEGATIVE Urine Bilirubin NEGATIVE Urine Urobilinogen NEGATIVE Urine Leukocyte Esterase TRACE A Urine Microscopic RBC 1 Urine Microscopic WBC 5 Urine Bacteria FEW A Urine Hemoglobin 2+ H Urine Glucose NEGATIVE Urine Total Protein NEGATIVE White Blood Count 9.0 Red Blood Count 3.12 L Hemoglobin 8.5 L Hematocrit 26.5 L Mean Corpuscular Volume 84.9 Mean Corpuscular Hemoglobin 27.2 L Mean Corpuscular Hemoglobin Concent 32.1 Red Cell Distribution Width 13.3 Platelet Count 248 Mean Platelet Volume 9.8 Immature Granulocytes % 0.400 Neutrophils % 70.2 Lymphocytes % 13.9 L Monocytes % 11.5 H Eosinophils % 3.3 Basophils % 0.7 Nucleated Red Blood Cells % 0.0 Immature Granulocytes # 0.040 H Neutrophils # 6.3 Lymphocytes # 1.3 Monocytes # 1.0 H Eosinophils # 0.3 Basophils # 0.1 Nucleated Red Blood Cells # 0.0 Sodium Level 137 Potassium Level 3.6 Chloride Level 102 Carbon Dioxide Level 25 Anion Gap 10 Blood Urea Nitrogen 39 H Creatinine 5.34 H Est Glomerular Filtrat Rate mL/min 8 L Glucose Level 101 Calcium Level 8.7 Phosphorus Level 6.0 H Magnesium Level 2.1 Consultation Date/Type/Reason Admit Date/Time Feb 03, 2018 at 18:13 Initial Consult Date Exam/Review of Systems Vital Signs Vitals Vital Signs Date Temp Pulse Resp B/P (MAP) Pulse Ox O2 O2 Flow FiO2 Time Delivery Rate 02/11/18 98.4 84 17 179/84 95 Room Air 08:39 (115) Intake and Output 02/10/18 02/10/18 02/11/18 1515:00 23:00 07:00 IntakeIntake Total 460 ml 500 ml OutputOutput Total 150 ml BalanceBalance 310 ml 500 ml Medications Medications Current Medications IV Flush (NS 3 ml) 3 ml PER PROTOCOL IV ; Start 02/03/18 at 00:00 Ondansetron HCl (Zofran Inj) 4 mg Q6H PRN IV NAUSEA AND/OR VOMITING Last administered on 02/07/18at 20:58; Admin Dose 4 MG; Start 02/03/18 at 00:00 Albuterol (Ventolin Hfa) 2 puff Q4H RESP THERAPY PRN INH SHORTNESS OF BREATH; Start 02/03/18 at 00:00 Amlodipine Besylate (Norvasc) 10 mg DAILY PO Last administered on 02/11/18at 09:19; Admin Dose 10 MG; Start 02/03/18 at 09:00 Gabapentin (Neurontin) 100 mg TID PO Last administered on 02/11/18 12:28; Admin Dose 100 MG; Start 02/03/18 at 09:00 Montelukast Sodium (Singulair) 10 mg QHS PO Last administered on 02/09/18at 20:45; Admin Dose 10 MG; Start 02/03/18 at 21:00 Oxycodone HCl (Roxicodone) 5 mg Q4H PRN PO PAIN Last administered on 02/10/18at 21:17; Admin Dose 5 MG; Start 02/03/18 at 00:00 Sertraline HCl (Zoloft) 25 mg DAILY PO Last administered on 02/11/18 09:18; Admin Dose 25 MG; Start 02/03/18 at 09:00 Tramadol HCl (Ultram) 50 mg Q6H PRN PO PAIN; Start 02/03/18 at 00:00 Zolpidem Tartrate (Ambien) 5 mg HS PRN PO INSOMNIA Last administered on 02/10/18 23:13; Admin Dose 5 MG; Start 02/03/18 at 07:00 Morphine Sulfate (morphine) 3 mg Q4H PRN IV SEVERE PAIN LEVEL 7-10 Last administered on 02/03/18 03:17; Admin Dose 3 MG; Start 02/03/18 at 03:30 Hydromorphone HCl (Dilaudid) 1 mg Q3H PRN IV SEVERE PAIN LEVEL 7-10 Last administered on 02/08/18 00:55; Admin Dose 1 MG; Start 02/03/18 at 05:00 Lactobacillus Acidophilus/ Rhamnosus (Culturelle) 1 cap BID PO Last administered on 02/11/18 09:19; Admin Dose 1 CAP; Start 02/03/18 at 21:00 Docusate Sodium (Colace) 100 mg BID PRN PO CONSTIPATION Last administered on 02/06/18 20:54; Admin Dose 100 MG; Start 02/03/18 at 17:00 Albuterol/ Ipratropium (Duoneb) 3 ml Q6H RESP THERAPY PRN HHN SHORTNESS OF BREATH; Start 02/04/18 at 16:00 Acetaminophen (Tylenol Tab) 650 mg Q4H PRN PO MILD PAIN(1-3)OR ELEVATED TEMP Last administered on 02/07/18 22:29; Admin Dose 650 MG; Start 02/04/18 at 16:00 Famotidine (Pepcid) 20 mg BID PO Last administered on 02/11/18 09:16; Admin Dose 20 MG; Start 02/04/18 at 16:00 Al Hydrox/Mg Hydrox/Simethicone (Mag-Al Plus) 30 ml Q6H PRN PO GASTROINTESTINAL UPSET; Start 02/04/18 at 16:00 Sodium Chloride 1,000 ml @ 50 mls/hr Q20H IV Last administered on 02/08/18 09:55; Admin Dose 50 MLS/HR; Start 02/08/18 at 09:00 Doxycycline Hyclate (Vibramycin) 100 mg BID PO Last administered on 02/11/18at 09:19; Admin Dose 100 MG; Start 02/08/18 at 21:00 Ondansetron HCl (Zofran Tab) 4 mg Q4 PRN PO NAUSEA AND/OR VOMITING Last administered on 02/11/18at 12:00; Admin Dose 4 MG; Start 02/08/18 at 21:00 Acetaminophen/ Hydrocodone Bitart ([place] (5/325)) 1 tab Q4H PRN PO MODERATE PAIN LEVEL 4-6; Start 02/09/18 at 02:05 Heparin Sodium (Porcine) (Heparin (5000 Units/1ml)) 5,000 unit BID SC Last administered on 02/11/18at 09:21; Admin Dose 5,000 UNIT; Start 02/11/18 at 09:00 OSMAR WOLFE NP Feb 11, 2018 15:16
[2018-02-11 15:24] VITALS: BP 123/58; PULSE 75; RESP 17
[2018-02-11] MEDS: oxyCODONE 5 MG TAB PO PRN ×2 (15:28→22:05)
[2018-02-11] MEDS ORDERED: BISACODYL (EC) 5 MG TAB PO PRN (16:00)
[2018-02-11] MEDS: DOCUSATE SODIUM 100 MG CAP PO PRN (16:53)
[2018-02-11] MEDS: SOD CHLORIDE 0.9% 1,000 ML IV SCH (17:00)
--- NOTE | 2018-02-11 18:46 | NUR ---
patient alert and oriented x4. patient denies pain after medication given. denies SOB or distress. patient complains of abdominal pain bilaterally and Alejo JJ notified. Given colace and ducolax due to patient complaining of no BM for 3 days. fall precaution in place, call light within reach. no IV access, MD aware. will endorse to nightman nurse.
[2018-02-11 20:00] VITALS: BP 134/63; PULSE 85; RESP 18
[2018-02-11] MEDS: POLYETHYLENE GLYCOL 17 GM PACKET PO SCH (20:32)
[2018-02-11] MEDS: MONTELUKAST 10 MG TAB PO SCH (20:40)
[2018-02-12 02:02] VITALS: BP 130/70; PULSE 88; RESP 18
[2018-02-12] MEDS: oxyCODONE 5 MG TAB PO PRN ×2 (03:20→17:57)
--- NOTE | 2018-02-12 06:51 | NUR ---
End of shift Report: Awake on bed in comfortable position. No sob. No resp distress. Afebrile. Left knee dressing dry and intact. Patient still complaining of sagar lower quadrant pain. Pain med given as ordered 2x. No IV access , MD's aware. Cont on PO ATB Therapy, well-mar and No A/R noted. Had 1 BM this shift. Assisted as needed. May DC from ortho standpoint with out pt. ff-up. Needs attended and anticipated. Will continue to monitor. Call light within reach. Will endorse accordingly.
[2018-02-12 08:00] VITALS: BP 124/59; PULSE 83; RESP 20
[2018-02-12] MEDS: GABAPENTIN 100 MG CAP PO SCH ×3 (08:25→20:32)
[2018-02-12] MEDS: DOXYCYCLINE 100 MG TAB PO SCH ×2 (08:25→20:31)
[2018-02-12] MEDS: LACTOBACILLUS RHAMNOSUS CAP PO SCH ×2 (08:25→20:31)
[2018-02-12] MEDS: SERTRALINE 50 MG TAB PO SCH (08:26)
[2018-02-12] MEDS: FAMOTIDINE 20 MG TAB PO SCH (08:26)
[2018-02-12] MEDS: AMLODIPINE 10 MG TAB PO SCH (08:26)
[2018-02-12] MEDS: HEPARIN 5,000 UNIT/1 ML VIAL SC SCH ×2 (08:31→20:33)
[2018-02-12] MEDS: POLYETHYLENE GLYCOL 17 GM PACKET PO SCH ×2 (08:32→20:32)
--- NOTE | 2018-02-12 08:32 | NUR ---
Patient refused miralax. stated she had 2 bowel movements this morning and they were very soft.
--- NOTE | 2018-02-12 12:15 | NUR ---
PT NOTE Therapy day number 2 Subjective Current complaint of pain Pain Scale NUMERIC Pain Intensity 7 (0-10) Patient Stated Goal for Pain Relief 0 (0-10) Pain Level Comment Lt knee Exercise Assessment Label Bilat Upper Extremity Exercise Type Active ROM Additional Exercise Comments LLE EOB: heel slides, AP, march, heel raises Exercise Start Time 12:15 Exercise End Time 12:30 Total Exercise Time 15 min (8-127) Supine to Sit Modified Independent Transfer Sit to Stand Ability Stand by Assist Bed Mobility Sit to Supine Independent Sitting Tolerance 15 min Additional Mobility Comments FWW sit to stand Gait Training Start Time 12:30 Gait Assist Levels Stand by Assist Assistive Devices Front Wheel Walker Ambulation Distance 60 feet Additional Gait Comments decreased itzel, step- to and recip, VC for incr heel-toe sequ, no LOB/buckl, increased postural sway Gait Training End Time 12:40 Total Gait Training Treatment Time 10 min (8-127) Weight Bearing Assessment Label Left Lower Extremity Weight Bearing Status Weight Bearing as Aaron Additional Stairs Assist Comments TBA Static Sitting Balance Good Dynamic Sitting Balance Good Standing Static Balance Good Dynamic Standing Balance Good Additional Balance Assessments Comments with FWW Safety Judgement Good Activity Tolerance Fair Post Treatment Pain Intensity 7 0-10 Total Treament Time 25 min (8-127) Total Minutes 25 Total Units 2 PT Technical Record Comment PT NOTE S: Pt agreeable to PT, cleared for PT per DILLON Henley. O: Pt received semifowler in bed, alert and oriented, in no apparent distress. Performed thera ex, bed mobiity, transfer tr and gait trainng per tech record with Megan to SBA using FWW. Pt BTB and positioned for comfort post tx with call light and needs in reach, bed alarm armed, no in no apparent distress. A: Pt aaron tx fairly, limited by LLE pain with WB P: Cont POC
[2018-02-12] MEDS: SOD CHLORIDE 0.9% 1,000 ML IV SCH ×2 (13:00→20:42)
--- NOTE | 2018-02-12 13:05 | PN ---
DATE: 02/12/2018 SUBJECTIVE: The patient is stable. No events overnight. Denies any fevers, chills, nausea, vomitin g. The patient is alert and oriented x3. OBJECTIVE: VITAL SIGNS: Blood pressure is 130/70, respiration 19, pulse 98, temperature 98.4. HEENT: Head is normocephalic. NECK: Supple. HEART: Regular rate. LUNGS: Show diminished breath sounds at the base. ABDOMEN: Soft, nontender to palpation without rebound or guarding. EXTREMITIES: Negative for clubbing, cyanosis. No edema. DERMATOLOGIC: No rashes. MUSCULOSKELETAL: No joint effusion. NEUROLOGIC: No change in exam. MEDICATIONS: Have been reviewed. LABORATORY DATA: Show sodium 136, potassium 3.5, chloride 103, BUN 42, creatinine 5.38. White count 8.4, hemoglobin 8.0, platelet count is 241. ASSESSMENT AND PLAN: 1. Nonoliguric acute kidney injury with previous baseline creatinine of 0.53 mg/dL. Etiology of acu te kidney injury is secondary to acute tubular necrosis due to vancomycin nephrotoxicity, possible ac jeanie interstitial nephritis. The patient appears to have entered maintenance phase of acute tubular n ecrosis as creatinine has been stable in the last 48 hours. The patient has no overt signs of uremia . At this point, continue current treatment plans, supportive care, renally dose all meds. No immed iate need for renal placement therapy. Monitor closely. 3. Anemia. Monitor hemoglobin and hematocrit levels. 4. Mineral bone disorder. Monitor calcium and phosphorus levels. 5. Hypertension. Continue current blood pressure regimen. Defer any LAURENCE inhibitor or ARBs. 6. Cellulitis. The patient is completing antibiotic course. 7. Depression. Continue SSRI. 8. Anxiety disorder. Continue to monitor. Dictated By: MIHIR DEUTSCH DO NR/NTS Conf#: [id number] DID#: [id number] CC: ZAIRA BEY MD; ANDRIA JONES MD; CALDERON LAYTON MD;*EndCC*
--- NOTE | 2018-02-12 13:48 | PN ---
Date/Time of Note Date/Time of Note DATE: 02/12/18 TIME: 13:45 Assessment/Plan VTE Prophylaxis Risk score (from Nsg)>0 risk: 4 SCD applied (from Ns): Yes SCD contraindicated: low risk/ambulating Pharmacological prophylaxis: LMWH Lines/Catheters IV Catheter Type (from Nrsg): Peripheral IV Urinary Cath still in place: No Assessment/Plan Hospital Course Hospitalist coverage A/P 1. Lt knee ssti. Stable resolvedfinished antibiotics, cont dressing care. home once ok with renal. 2. Left tka status, weightbearing/ PT/ pain control stable 3. Chronic asthma stable 4. Chronic hypertension 5. Chronic major depression 6. Debility 7. Acute renal failure/ATN vs AIN, stable observe. Home once ok w nephrology. Subjective 02/03: Was at home and doing well. Had home health and PT visits. Ambulating. Then over the last 4 days noted some swelling pain erythema over her joint. Denies any toxicity nausea vomiting fever. Today feels better than yesterday. 02/04: No fever diarrhea. Pain improved. Participated with PT. Awaiting orthopedic opinion 02/12: Events noted. No nausea vomiting fever. Ambulating tolerating diet. O: Vital signs stable Physical exam No pallor Reg no mrg Clear Benign Lt knee: No erythema/ warmth, tenderness, or edema Result Diagram: 02/12/18 0523 02/12/18 0523 Results 24hrs Laboratory Tests Test 02/12/18 05:23 White Blood Count 8.4 Red Blood Count 3.02 L Hemoglobin 8.0 L Hematocrit 25.3 L Mean Corpuscular Volume 83.8 Mean Corpuscular Hemoglobin 26.5 L Mean Corpuscular Hemoglobin Concent 31.6 L Red Cell Distribution Width 13.3 Platelet Count 241 Mean Platelet Volume 9.6 Immature Granulocytes % 0.400 Neutrophils % 69.5 Lymphocytes % 15.2 Monocytes % 12.2 H Eosinophils % 1.7 Basophils % 1.0 Nucleated Red Blood Cells % 0.0 Immature Granulocytes # 0.030 Neutrophils # 5.9 Lymphocytes # 1.3 Monocytes # 1.0 H Eosinophils # 0.1 Basophils # 0.1 Nucleated Red Blood Cells # 0.0 Sodium Level 136 Potassium Level 3.5 Chloride Level 103 Carbon Dioxide Level 24 Anion Gap 9 Blood Urea Nitrogen 42 H Creatinine 5.38 H Est Glomerular Filtrat Rate mL/min 8 L Glucose Level 97 Calcium Level 8.5 Phosphorus Level 6.4 H Magnesium Level 2.1 Exam/Review of Systems Vital Signs Vitals Vital Signs Date Temp Pulse Resp B/P (MAP) Pulse Ox O2 O2 Flow FiO2 Time Delivery Rate 02/12/18 98.6 83 20 124/59 96 08:00 (80) 02/11/18 Room Air 15:24 Intake and Output 02/11/18 02/11/18 02/12/18 1515:00 23:00 07:00 IntakeIntake Total 1000 ml 340 ml OutputOutput Total 4 ml BalanceBalance 996 ml 340 ml Medications Medications Current Medications IV Flush (NS 3 ml) 3 ml PER PROTOCOL IV ; Start 02/03/18 at 00:00 Ondansetron HCl (Zofran Inj) 4 mg Q6H PRN IV NAUSEA AND/OR VOMITING Last adm inistered on 02/07/18at 20:58; Admin Dose 4 MG; Start 02/03/18 at 00:00 Albuterol (Ventolin Hfa) 2 puff Q4H RESP THERAPY PRN INH SHORTNESS OF BREATH; Start 02/03/18 at 00:00 Amlodipine Besylate (Norvasc) 10 mg DAILY PO Last administered on 02/12/18 08:26; Admin Dose 10 MG; Start 02/03/18 at 09:00 Gabapentin (Neurontin) 100 mg TID PO Last administered on 02/12/18 13:03; Admin Dose 100 MG; Start 02/03/18 at 09:00 Montelukast Sodium (Singulair) 10 mg QHS PO Last administered on 02/09/18at 20:45; Admin Dose 10 MG; Start 02/03/18 at 21:00 Oxycodone HCl (Roxicodone) 5 mg Q4H PRN PO PAIN Last administered on 02/12/18 03:20; Admin Dose 5 MG; Start 02/03/18 at 00:00 Sertraline HCl (Zoloft) 25 mg DAILY PO Last administered on 02/12/18 08:26; Admin Dose 25 MG; Start 02/03/18 at 09:00 Tramadol HCl (Ultram) 50 mg Q6H PRN PO PAIN; Start 02/03/18 at 00:00 Zolpidem Tartrate (Ambien) 5 mg HS PRN PO INSOMNIA Last administered on 02/10/18 23:13; Admin Dose 5 MG; Start 02/03/18 at 07:00 Morphine Sulfate (morphine) 3 mg Q4H PRN IV SEVERE PAIN LEVEL 7-10 Last administered on 02/03/18 03:17; Admin Dose 3 MG; Start 02/03/18 at 03:30 Hydromorphone HCl (Dilaudid) 1 mg Q3H PRN IV SEVERE PAIN LEVEL 7-10 Last administered on 02/08/18 00:55; Admin Dose 1 MG; Start 02/03/18 at 05:00 Lactobacillus Acidophilus/ Rhamnosus (Culturelle) 1 cap BID PO Last administered on 02/12/18 08:25; Admin Dose 1 CAP; Start 02/03/18 at 21:00 Docusate Sodium (Colace) 100 mg BID PRN PO CONSTIPATION Last administered on 02/11/18 16:53; Admin Dose 100 MG; Start 02/03/18 at 17:00 Albuterol/ Ipratropium (Duoneb) 3 ml Q6H RESP THERAPY PRN HHN SHORTNESS OF BREATH; Start 02/04/18 at 16:00 Acetaminophen (Tylenol Tab) 650 mg Q4H PRN PO MILD PAIN(1-3)OR ELEVATED TEMP Last administered on 02/07/18 22:29; Admin Dose 650 MG; Start 02/04/18 at 16:00 Famotidine (Pepcid) 20 mg BID PO Last administered on 02/12/18 08:26; Admin Dose 20 MG; Start 02/04/18 at 16:00 Al Hydrox/Mg Hydrox/Simethicone (Mag-Al Plus) 30 ml Q6H PRN PO GASTROINTESTINAL UPSET; Start 02/04/18 at 16:00 Sodium Chloride 1,000 ml @ 50 mls/hr Q20H IV Last administered on 02/08/18at 09:55; Admin Dose 50 MLS/HR; Start 02/08/18 at 09:00 Doxycycline Hyclate (Vibramycin) 100 mg BID PO Last administered on 02/12/18 08:25; Admin Dose 100 MG; Start 02/08/18 at 21:00 Ondansetron HCl (Zofran Tab) 4 mg Q4 PRN PO NAUSEA AND/OR VOMITING Last administered on 02/11/18 12:00; Admin Dose 4 MG; Start 02/08/18 at 21:00 Acetaminophen/ Hydrocodone Bitart ([place] (5/325)) 1 tab Q4H PRN PO MODERATE PAIN LEVEL 4-6; Start 02/09/18 at 02:05 Heparin Sodium (Porcine) (Heparin (5000 Units/1ml)) 5,000 unit BID SC Last administered on 02/12/18 08:31; Admin Dose 5,000 UNIT; Start 02/11/18 at 09:00 Polyethylene Glycol (Miralax) 17 gm BID PO Last administered on 02/11/18at 20:32; Admin Dose 17 GM; Start 02/11/18 at 21:00 Bisacodyl (Dulcolax) 10 mg DAILY PRN PO CONSTIPATION Last administered on 02/11/18at 16:53; Admin Dose 10 MG; Start 02/11/18 at 16:00 CALDERON LAYTON MD Feb 12, 2018 13:48
[2018-02-12 14:00] VITALS: BP_SYST 143; BP_SYST 149; BP_DIAS 68; BP_DIAS 79; PULSE 83; RESP 18; RESP 20
--- NOTE | 2018-02-12 14:37 | CONS ---
Date/Time of Note Date/Time of Note DATE: 02/12/18 TIME: 14:29 Assessment/Plan Assessment/Plan Hospital Course ID PROGRESS NOTE CURRENT ABX: DAY # => Doxycycline 02/12/1852202/12/18522 24H INTERVAL SUMMARY * No new issues, ambulatory to [facility] and OOB-Chair, asymptomatic funguria vs contaminated sample ? * DSG has been removed for left knee with much improvement in pain, edema, erythema MICRO * (-) MRSA Nares * 02/10/18 Urine Cx(+) URINE CULTURE Final Organism 1 BORA ALBICANS COLONY COUNT 10,000 - 20,000 CFU/m PHYSICAL EXAMINATION: GENERAL: Afebrile, VSS, HEENT: AT, NC, anicteric NECK: Supple, trach CHEST: Equal chest rise bilaterally, without dyspnea on observation HEART: Pulse RRR ABDOMEN: Soft / NT EXTREMITIES: Warm, dry SKIN: No rash, no diaphoresis ID ASSESSMENT 57 yo F admit with: 1. Resolving superficial cellulitis of left knee 2. Acute renal failure -- Vanco IV & Zosyn DC'd 3. Morbid obesity 4. Hypertension 5. Hx of COPD-Asthma -- asymptomatic 6. Asymptomatic funguria vs contaminated sample ? (-)MRSA Nares ABX ALLERGIES: NKDA INVASIVES: PI CURRENT ABX: DAY == Doxycycline s/p Vanco IV & Zosyn ID RECOMMENDATIONS/PLAN: Continue Doxy == she has no IV access, cellulitis is much improved --- still at risk would continue Doxy May DC home with PO Doxy to complete 5 more days to op follow up Result Diagram: 02/12/1852202/12/18522 Results 24hrs Laboratory Tests Test 02/12/18 05:23 White Blood Count 8.4 Red Blood Count 3.02 L Hemoglobin 8.0 L Hematocrit 25.3 L Mean Corpuscular Volume 83.8 Mean Corpuscular Hemoglobin 26.5 L Mean Corpuscular Hemoglobin Concent 31.6 L Red Cell Distribution Width 13.3 Platelet Count 241 Mean Platelet Volume 9.6 Immature Granulocytes % 0.400 Neutrophils % 69.5 Lymphocytes % 15.2 Monocytes % 12.2 H Eosinophils % 1.7 Basophils % 1.0 Nucleated Red Blood Cells % 0.0 Immature Granulocytes # 0.030 Neutrophils # 5.9 Lymphocytes # 1.3 Monocytes # 1.0 H Eosinophils # 0.1 Basophils # 0.1 Nucleated Red Blood Cells # 0.0 Sodium Level 136 Potassium Level 3.5 Chloride Level 103 Carbon Dioxide Level 24 Anion Gap 9 Blood Urea Nitrogen 42 H Creatinine 5.38 H Est Glomerular Filtrat Rate mL/min 8 L Glucose Level 97 Calcium Level 8.5 Phosphorus Level 6.4 H Magnesium Level 2.1 Consultation Date/Type/Reason Admit Date/Time Feb 03, 2018 at 18:13 Initial Consult Date Exam/Review of Systems Vital Signs Vitals Vital Signs Date Temp Pulse Resp B/P (MAP) Pulse Ox O2 O2 Flow FiO2 Time Delivery Rate 02/12/18 98.6 83 20 124/59 96 08:00 (80) 02/11/18 Room Air 15:24 Intake and Output 02/11/18 02/11/18 02/12/18 1515:00 23:00 07:00 IntakeIntake Total 1000 ml 340 ml OutputOutput Total 4 ml BalanceBalance 996 ml 340 ml Medications Medications Current Medications IV Flush (NS 3 ml) 3 ml PER PROTOCOL IV ; Start 02/03/18 at 00:00 Ondansetron HCl (Zofran Inj) 4 mg Q6H PRN IV NAUSEA AND/OR VOMITING Last administered on 02/07/18at 20:58; Admin Dose 4 MG; Start 02/03/18 at 00:00 Albuterol (Ventolin Hfa) 2 puff Q4H RESP THERAPY PRN INH SHORTNESS OF BREATH; Start 02/03/18 at 00:00 Amlodipine Besylate (Norvasc) 10 mg DAILY PO Last administered on 02/12/18at 08:26; Admin Dose 10 MG; Start 02/03/18 at 09:00 Gabapentin (Neurontin) 100 mg TID PO Last administered on 02/12/18 13:03; Admin Dose 100 MG; Start 02/03/18 at 09:00 Montelukast Sodium (Singulair) 10 mg QHS PO Last administered on 02/09/18at 20:45; Admin Dose 10 MG; Start 02/03/18 at 21:00 Oxycodone HCl (Roxicodone) 5 mg Q4H PRN PO PAIN Last administered on 02/12/18 03:20; Admin Dose 5 MG; Start 02/03/18 at 00:00 Sertraline HCl (Zoloft) 25 mg DAILY PO Last administered on 02/12/18 08:26; Admin Dose 25 MG; Start 02/03/18 at 09:00 Tramadol HCl (Ultram) 50 mg Q6H PRN PO PAIN; Start 02/03/18 at 00:00 Zolpidem Tartrate (Ambien) 5 mg HS PRN PO INSOMNIA Last administered on 02/10/18 23:13; Admin Dose 5 MG; Start 02/03/18 at 07:00 Morphine Sulfate (morphine) 3 mg Q4H PRN IV SEVERE PAIN LEVEL 7-10 Last administered on 02/03/18 03:17; Admin Dose 3 MG; Start 02/03/18 at 03:30 Hydromorphone HCl (Dilaudid) 1 mg Q3H PRN IV SEVERE PAIN LEVEL 7-10 Last administered on 02/08/18 00:55; Admin Dose 1 MG; Start 02/03/18 at 05:00 Lactobacillus Acidophilus/ Rhamnosus (Culturelle) 1 cap BID PO Last administered on 02/12/18 08:25; Admin Dose 1 CAP; Start 02/03/18 at 21:00 Docusate Sodium (Colace) 100 mg BID PRN PO CONSTIPATION Last administered on 02/11/18 16:53; Admin Dose 100 MG; Start 02/03/18 at 17:00 Albuterol/ Ipratropium (Duoneb) 3 ml Q6H RESP THERAPY PRN HHN SHORTNESS OF BREATH; Start 02/04/18 at 16:00 Acetaminophen (Tylenol Tab) 650 mg Q4H PRN PO MILD PAIN(1-3)OR ELEVATED TEMP Last administered on 02/07/18 22:29; Admin Dose 650 MG; Start 02/04/18 at 16:00 Sodium Chloride 1,000 ml @ 50 mls/hr Q20H IV Last administered on 02/08/18 09:55; Admin Dose 50 MLS/HR; Start 02/08/18 at 09:00 Doxycycline Hyclate (Vibramycin) 100 mg BID PO Last administered on 02/12/18 08:25; Admin Dose 100 MG; Start 02/08/18 at 21:00 Ondansetron HCl (Zofran Tab) 4 mg Q4 PRN PO NAUSEA AND/OR VOMITING Last administered on 12/30/18at 12:00; Admin Dose 4 MG; Start 02/08/18 at 21:00 Acetaminophen/ Hydrocodone Bitart ([place] (5/325)) 1 tab Q4H PRN PO MODERATE PAIN LEVEL 4-6; Start 02/09/18 at 02:05 Heparin Sodium (Porcine) (Heparin (5000 Units/1ml)) 5,000 unit BID SC Last adm inistered on 02/12/18 08:31; Admin Dose 5,000 UNIT; Start 02/11/18 at 09:00 Polyethylene Glycol (Miralax) 17 gm BID PO Last administered on 02/11/18at 20:32; Admin Dose 17 GM; Start 02/11/18 at 21:00 Bisacodyl (Dulcolax) 10 mg DAILY PRN PO CONSTIPATION Last administered on 02/11/18at 16:53; Admin Dose 10 MG; Start 02/11/18 at 16:00 OSMAR WOLFE NP Feb 12, 2018 14:37
[2018-02-12] MEDS: NYSTATIN SUSP 5 ML CUP PO SCH ×4 (15:47→20:40)
[2018-02-12 20:00] VITALS: BP 122/60; PULSE 74; RESP 18
[2018-02-12] MEDS: MONTELUKAST 10 MG TAB PO SCH (20:41)
[2018-02-12] MEDS: ZOLPIDEM 5 MG TAB PO PRN (22:34)
[2018-02-13 02:35] VITALS: BP 136/67; PULSE 75; RESP 18
--- NOTE | 2018-02-13 06:23 | NUR ---
End of shift Report: Sleeping on bed , No sob. No resp distress. Afebrile. Left knee incision covered with mepilex as ordered, dry and intact., done by am shift nurser. Denies pain/discomfort. No episode of N/V. Cont PO ATB Therapy mar well. No A/R noted. No significant changes overnight. May DC Home once ok with renal stand point. Call light within reach. Will continue to monitor. Will endorse accordingly..
[2018-02-13 08:00] VITALS: BP 135/62; PULSE 72; RESP 18
[2018-02-13] MEDS: NYSTATIN SUSP 5 ML CUP PO SCH ×4 (09:00→21:27)
[2018-02-13] MEDS: SERTRALINE 50 MG TAB PO SCH (09:01)
[2018-02-13] MEDS: LACTOBACILLUS RHAMNOSUS CAP PO SCH ×2 (09:01→21:27)
[2018-02-13] MEDS: DOXYCYCLINE 100 MG TAB PO SCH ×2 (09:01→21:27)
[2018-02-13] MEDS: POLYETHYLENE GLYCOL 17 GM PACKET PO SCH ×2 (09:01→21:00)
[2018-02-13] MEDS: GABAPENTIN 100 MG CAP PO SCH ×3 (09:01→21:27)
[2018-02-13] MEDS: HEPARIN 5,000 UNIT/1 ML VIAL SC SCH ×2 (09:02→21:28)
[2018-02-13] MEDS: AMLODIPINE 10 MG TAB PO SCH (09:03)
--- NOTE | 2018-02-13 09:54 | PN ---
DATE: 02/13/2018 SUBJECTIVE: The patient is stable, no events overnight. OBJECTIVE: VITAL SIGNS: Blood pressure is 136/67, respiration 18, pulse 75, temperature 98.4. HEENT: Head is normocephalic. NECK: Supple. HEART: Regular rate. LUNGS: Show diminished breath sounds at base. ABDOMEN: Soft, nontender to palpation without rebound or guarding. EXTREMITIES: Negative for clubbing, cyanosis, no edema. DERMATOLOGIC: No rashes. MUSCULOSKELETAL: No joint effusions. NEUROLOGIC: No change in exam. MEDICATIONS: The patient's medications have been reviewed. LABORATORY DATA: From 02/13/2018 shows white count 8.1, hemoglobin 8.0, platelet count is 247. Bernie ent's BMP is pending. ASSESSMENT AND PLAN: 1. Nonoliguric acute kidney injury with previous baseline creatinine of 0.53 mg/dL. Etiology of acu te kidney injury is secondary to acute tubular necrosis due to vancomycin nephrotoxicity, possible AI N. The patient appears to have entered maintenance phase of acute tubular necrosis as creatinine has been stable in the previous 48 hours. Waiting for a renal panel this morning. If renal function sh ould begin to improve, the patient can likely be discharged home with followup with a frame feeder in 2 to 3 days. At this point, there are no overt signs of uremia, would continue current treatment pl ans, supportive care, renally dose all meds. No need for renal placement therapy. Continue to monit or closely. 2. Anemia. Continue to monitor hemoglobin and hematocrit levels. 3. Mineral bone disorder, monitor calcium and phosphorus levels. 4. Hypertension, controlled. Defer any LAURENCE inhibitor or ARB at this time. 5. Cellulitis. The patient has completed antibiotic course. 6. Depression. Continue medical management. 7. Anxiety disorder. Continue to monitor. Dictated By: MIHIR DEUTSCH DO NR/NTS Conf#: [id number] DID#: [id number] CC: ANDRIA JONES MD;*EndCC*
[2018-02-13 14:00] VITALS: BP 128/68; PULSE 84; RESP 20
--- NOTE | 2018-02-13 14:05 | NUR ---
PT NOTE [facility] Patient: Sofia Metzger : 1960 Age/Sex: 57/F Unit#: [id number] Room/Bed: 226/A User: Margarita Montesinos PTA Date: 02/13/18 13:41 Type: PT Technical Record Therapy day number 3 Subjective Current complaint of pain Pain Scale NUMERIC Pain Intensity 5 (0-10) Patient Stated Goal for Pain Relief 0 (0-10) Pain Level Comment L knee; premedicated Exercise Assessment Label Bilat Upper Extremity Exercise Type Active ROM Additional Exercise Comments seated knee flexion Exercise Start Time 13:56 Exercise End Time 14:05 Total Exercise Time 9 min (8-127) Transfer Sit to Stand Ability Stand by Assist Additional Mobility Comments received up in chair; left at EOB Patient uses wheelchair Not Applicable Gait Training Start Time 13:41 Gait Assist Levels Stand by Assist Assistive Devices Front Wheel Walker Ambulation Distance 140 feet Additional Gait Comments reciprocal antalgic gait; focused on L heel strike; no LOB Gait Training End Time 13:55 Total Gait Training Treatment Time 14 min (8-127) Weight Bearing Assessment Label Left Lower Extremity Weight Bearing Status Weight Bearing as Aaron Static Sitting Balance Good Dynamic Sitting Balance Good Standing Static Balance Good Dynamic Standing Balance Good Additional Balance Assessments Comments with FWW Safety Judgement Good Activity Tolerance Good Post Treatment Pain Intensity 5 0-10 Variance Documentation see PT note Total Treament Time 23 min (8-127) Total Minutes 23 Total Units 2 PT Technical Record Comment PT NOTE S: "The pain is pretty good today." Agreed to skilled PT. Cleared and premedicated by DILLON Live. O: Received sitting up in chair. See tech record for assist levels. STS with FWW. Gait training with FWW, reciprocal antalgic gait, focused on L heel strike, decreased itzel, no LOB. Returned back to room to EOB. Performed seated knee flexion. Encouraged to apply CP to knee for swelling; pt reported applying CP everyday. Left at EOB, call light and all necessities within reach. A: Pt aaron tx well. Increased gait distance. L knee swelling slowly improving per pt. VCs on heel strike. P: Continue with POC.
[2018-02-13] MEDS: oxyCODONE 5 MG TAB PO PRN (15:22)
--- NOTE | 2018-02-13 17:43 | PN ---
Date/Time of Note Date/Time of Note DATE: 02/13/18 TIME: 17:43 Assessment/Plan VTE Prophylaxis Risk score (from Nsg)>0 risk: 7 SCD applied (from Ns): No SCD contraindicated: low risk/ambulating Pharmacological prophylaxis: LMWH Lines/Catheters IV Catheter Type (from Nrsg): Peripheral IV Urinary Cath still in place: No Assessment/Plan Hospital Course Hospitalist coverage A/P 1. Lt knee ssti. Stable resolvedfinished antibiotics, cont dressing care. home once ok with renal. 2. Left tka status, weightbearing/ PT/ pain control stable 3. Chronic asthma stable 4. Chronic hypertension 5. Chronic major depression 6. Debility 7. Acute renal failure/ATN vs AIN, stable observe. Home once ok w nephrology. Subjective 02/03: Was at home and doing well. Had home health and PT visits. Ambulating. Then over the last 4 days noted some swelling pain erythema over her joint. Denies any toxicity nausea vomiting fever. Today feels better than yesterday. 02/04: No fever diarrhea. Pain improved. Participated with PT. Awaiting orthopedic opinion 02/12: Events noted. No nausea vomiting fever. Ambulating tolerating diet. 02/13: No events, anticipating going home soon. Participating with PT O: Vital signs stable Physical exam No pallor Reg no mrg Clear Benign Lt knee: No erythema/ warmth, tenderness, or edema Result Diagram: 02/13/18 0642 02/13/18 0642 Results 24hrs Laboratory Tests Test 02/13/18 06:42 White Blood Count 8.1 Red Blood Count 2.93 L Hemoglobin 8.0 L Hematocrit 24.2 L Mean Corpuscular Volume 82.6 Mean Corpuscular Hemoglobin 27.3 L Mean Corpuscular Hemoglobin Concent 33.1 Red Cell Distribution Width 13.4 Platelet Count 247 Mean Platelet Volume 9.6 Immature Granulocytes % 0.400 Neutrophils % 68.6 Lymphocytes % 15.5 Monocytes % 11.7 H Eosinophils % 3.1 Basophils % 0.7 Nucleated Red Blood Cells % 0.0 Immature Granulocytes # 0.030 Neutrophils # 5.6 Lymphocytes # 1.3 Monocytes # 1.0 H Eosinophils # 0.3 Basophils # 0.1 Nucleated Red Blood Cells # 0.0 Sodium Level 137 Potassium Level 3.7 Chloride Level 102 Carbon Dioxide Level 25 Anion Gap 10 Blood Urea Nitrogen 45 H Creatinine 5.31 H Est Glomerular Filtrat Rate mL/min 8 L Glucose Level 90 Calcium Level 8.7 Phosphorus Level 6.5 H Magnesium Level 2.2 Exam/Review of Systems Vital Signs Vitals Vital Signs Date Temp Pulse Resp B/P (MAP) Pulse Ox O2 O2 Flow FiO2 Time Delivery Rate 02/13/18 97.6 84 20 128/68 94 14:00 (88) 02/11/18 Room Air 15:24 Intake and Output 02/12/18 02/12/18 02/13/18 1515:00 23:00 07:00 IntakeIntake Total 350 ml 590 ml BalanceBalance 350 ml 590 ml Medications Medications Current Medications IV Flush (NS 3 ml) 3 ml PER PROTOCOL IV ; Start 02/03/18 at 00:00 Ondansetron HCl (Zofran Inj) 4 mg Q6H PRN IV NAUSEA AND/OR VOMITING Last administered on 02/07/18at 20:58; Admin Dose 4 MG; Start 02/03/18 at 00:00 Albuterol (Ventolin Hfa) 2 puff Q4H RESP THERAPY PRN INH SHORTNESS OF BREATH; Start 02/03/18 at 00:00 Amlodipine Besylate (Norvasc) 10 mg DAILY PO Last administered on 02/13/18 09:03; Admin Dose 10 MG; Start 02/03/18 at 09:00 Gabapentin (Neurontin) 100 mg TID PO Last administered on 02/13/18 12:18; Admin Dose 100 MG; Start 02/03/18 at 09:00 Montelukast Sodium (Singulair) 10 mg QHS PO Last administered on 02/09/18at 20:45; Admin Dose 10 MG; Start 02/03/18 at 21:00 Oxycodone HCl (Roxicodone) 5 mg Q4H PRN PO PAIN Last administered on 02/13/18 15:22; Admin Dose 5 MG; Start 02/03/18 at 00:00 Sertraline HCl (Zoloft) 25 mg DAILY PO Last administered on 02/13/18 09:01; Admin Dose 25 MG; Start 02/03/18 at 09:00 Tramadol HCl (Ultram) 50 mg Q6H PRN PO PAIN; Start 02/03/18 at 00:00 Zolpidem Tartrate (Ambien) 5 mg HS PRN PO INSOMNIA Last administered on 02/12/18 22:34; Admin Dose 5 MG; Start 02/03/18 at 07:00 Morphine Sulfate (morphine) 3 mg Q4H PRN IV SEVERE PAIN LEVEL 7-10 Last administered on 02/03/18 03:17; Admin Dose 3 MG; Start 02/03/18 at 03:30 Hydromorphone HCl (Dilaudid) 1 mg Q3H PRN IV SEVERE PAIN LEVEL 7-10 Last administered on 02/08/18at 00:55; Admin Dose 1 MG; Start 02/03/18 at 05:00 Lactobacillus Acidophilus/ Rhamnosus (Culturelle) 1 cap BID PO Last administered on 02/13/18 09:01; Admin Dose 1 CAP; Start 02/03/18 at 21:00 Docusate Sodium (Colace) 100 mg BID PRN PO CONSTIPATION Last administered on 02/11/18at 16:53; Admin Dose 100 MG; Start 02/03/18 at 17:00 Albuterol/ Ipratropium (Duoneb) 3 ml Q6H RESP THERAPY PRN HHN SHORTNESS OF BREATH; Start 02/04/18 at 16:00 Acetaminophen (Tylenol Tab) 650 mg Q4H PRN PO MILD PAIN(1-3)OR ELEVATED TEMP Last administered on 02/07/18at 22:29; Admin Dose 650 MG; Start 02/04/18 at 16:00 Doxycycline Hyclate (Vibramycin) 100 mg BID PO Last administered on 02/13/18 09:01; Admin Dose 100 MG; Start 02/08/18 at 21:00 Ondansetron HCl (Zofran Tab) 4 mg Q4 PRN PO NAUSEA AND/OR VOMITING Last administered on 02/11/18at 12:00; Admin Dose 4 MG; Start 02/08/18 at 21:00 Acetaminophen/ Hydrocodone Bitart ([place] (5/325)) 1 tab Q4H PRN PO MODERATE PAIN LEVEL 4-6; Start 02/09/18 at 02:05 Heparin Sodium (Porcine) (Heparin (5000 Units/1ml)) 5,000 unit BID SC Last administered on 02/13/18 09:02; Admin Dose 5,000 UNIT; Start 02/11/18 at 09:00 Polyethylene Glycol (Miralax) 17 gm BID PO Last administered on 02/13/18 09:01; Admin Dose 17 GM; Start 02/11/18 at 21:00 Bisacodyl (Dulcolax) 10 mg DAILY PRN PO CONSTIPATION Last administered on 02/11/18at 16:53; Admin Dose 10 MG; Start 02/11/18 at 16:00 Nystatin (Nystatin Susp) 5 ml QID PO Last administered on 02/13/18 17:13; Admin Dose 5 ML; Start 02/12/18 at 15:00 CALDERON LAYTON MD Feb 13, 2018 17:43
--- NOTE | 2018-02-13 17:55 | NUR ---
NURSE NOTE: NO ACUTE CHANGES. PT IS AXOX4. NO SIGNS OF DISTRESS. PAIN MEDICATION GIVEN NEEDED. PT AMBULATED AROUND THE UNIT WITH PHYSICAL THERAPY. PT REFUSED BED ALARM. EDUCATED IMPORTANCE OF CALLING STAFF IF SHE WANTS TO AMBULATE. PT VERBALIZED UNDERSTANDING. WILL CONTINUE TO MONITOR.
--- NOTE | 2018-02-13 18:26 | CONS ---
Date/Time of Note Date/Time of Note DATE: 02/13/18 TIME: 18:24 Assessment/Plan Assessment/Plan Hospital Course ID PROGRESS NOTE CURRENT ABX: DAY # => Doxycycline 02/13/18 0642 02/13/18 0642 24H INTERVAL SUMMARY * Clinically status quo -- remains inpatient status due to ALYX * No new issues, ambulatory to [facility] and [facility], asymptomatic funguria vs contaminated sample * Left knee with much improvement in pain, edema, erythema MICRO * (-) MRSA Nares * 02/10/18 Urine Cx(+) URINE CULTURE Final Organism 1 BORA ALBICANS COLONY COUNT 10,000 - 20,000 CFU/m PHYSICAL EXAMINATION: GENERAL: Afebrile, VSS, HEENT: AT, NC, anicteric NECK: Supple, trach CHEST: Equal chest rise bilaterally, without dyspnea on observation HEART: Pulse RRR ABDOMEN: Soft / NT EXTREMITIES: Warm, dry SKIN: No rash, no diaphoresis ID ASSESSMENT 57 yo F admit with: 1. Resolving superficial cellulitis of left knee 2. Acute renal failure -- Vanco IV & Zosyn DC'd 3. Morbid obesity 4. Hypertension 5. Hx of COPD-Asthma -- asymptomatic 6. Asymptomatic funguria vs contaminated sample ? (-)MRSA Nares ABX ALLERGIES: NKDA INVASIVES: PI CURRENT ABX: DAY == Doxycycline s/p Vanco IV & Zosyn ID RECOMMENDATIONS/PLAN: Continue Doxy == she has no IV access, cellulitis is much improved --- still at risk would continue Doxy May DC home with PO Doxy to complete 5 more days to op follow up Result Diagram: 02/13/18 0642 02/13/18 0642 Results 24hrs Laboratory Tests Test 02/13/18 06:42 White Blood Count 8.1 Red Blood Count 2.93 L Hemoglobin 8.0 L Hematocrit 24.2 L Mean Corpuscular Volume 82.6 Mean Corpuscular Hemoglobin 27.3 L Mean Corpuscular Hemoglobin Concent 33.1 Red Cell Distribution Width 13.4 Platelet Count 247 Mean Platelet Volume 9.6 Immature Granulocytes % 0.400 Neutrophils % 68.6 Lymphocytes % 15.5 Monocytes % 11.7 H Eosinophils % 3.1 Basophils % 0.7 Nucleated Red Blood Cells % 0.0 Immature Granulocytes # 0.030 Neutrophils # 5.6 Lymphocytes # 1.3 Monocytes # 1.0 H Eosinophils # 0.3 Basophils # 0.1 Nucleated Red Blood Cells # 0.0 Sodium Level 137 Potassium Level 3.7 Chloride Level 102 Carbon Dioxide Level 25 Anion Gap 10 Blood Urea Nitrogen 45 H Creatinine 5.31 H Est Glomerular Filtrat Rate mL/min 8 L Glucose Level 90 Calcium Level 8.7 Phosphorus Level 6.5 H Magnesium Level 2.2 Consultation Date/Type/Reason Admit Date/Time Feb 03, 2018 at 18:13 Initial Consult Date Exam/Review of Systems Vital Signs Vitals Vital Signs Date Temp Pulse Resp B/P (MAP) Pulse Ox O2 O2 Flow FiO2 Time Delivery Rate 02/13/18 97.6 84 20 128/68 94 14:00 (88) 02/11/18 Room Air 15:24 Intake and Output 02/12/18 02/12/18 02/13/18 1515:00 23:00 07:00 IntakeIntake Total 350 ml 590 ml BalanceBalance 350 ml 590 ml Medications Medications Current Medications IV Flush (NS 3 ml) 3 ml PER PROTOCOL IV ; Start 02/03/18 at 00:00 Ondansetron HCl (Zofran Inj) 4 mg Q6H PRN IV NAUSEA AND/OR VOMITING Last administered on 02/07/18at 20:58; Admin Dose 4 MG; Start 02/03/18 at 00:00 Albuterol (Ventolin Hfa) 2 puff Q4H RESP THERAPY PRN INH SHORTNESS OF BREATH; Start 02/03/18 at 00:00 Amlodipine Besylate (Norvasc) 10 mg DAILY PO Last administered on 02/13/18 09:03; Admin Dose 10 MG; Start 02/03/18 at 09:00 Gabapentin (Neurontin) 100 mg TID PO Last administered on 02/13/18 12:18; Admin Dose 100 MG; Start 02/03/18 at 09:00 Montelukast Sodium (Singulair) 10 mg QHS PO Last administered on 02/09/18at 20:45; Admin Dose 10 MG; Start 02/03/18 at 21:00 Oxycodone HCl (Roxicodone) 5 mg Q4H PRN PO PAIN Last administered on 02/13/18 15:22; Admin Dose 5 MG; Start 02/03/18 at 00:00 Sertraline HCl (Zoloft) 25 mg DAILY PO Last administered on 02/13/18 09:01; Admin Dose 25 MG; Start 02/03/18 at 09:00 Tramadol HCl (Ultram) 50 mg Q6H PRN PO PAIN; Start 02/03/18 at 00:00 Zolpidem Tartrate (Ambien) 5 mg HS PRN PO INSOMNIA Last administered on 02/12/18 22:34; Admin Dose 5 MG; Start 02/03/18 at 07:00 Morphine Sulfate (morphine) 3 mg Q4H PRN IV SEVERE PAIN LEVEL 7-10 Last admi nistered on 02/03/18 03:17; Admin Dose 3 MG; Start 02/03/18 at 03:30 Hydromorphone HCl (Dilaudid) 1 mg Q3H PRN IV SEVERE PAIN LEVEL 7-10 Last administered on 02/08/18 00:55; Admin Dose 1 MG; Start 02/03/18 at 05:00 Lactobacillus Acidophilus/ Rhamnosus (Culturelle) 1 cap BID PO Last administe red on 02/13/18 09:01; Admin Dose 1 CAP; Start 02/03/18 at 21:00 Docusate Sodium (Colace) 100 mg BID PRN PO CONSTIPATION Last administered on 02/11/18 16:53; Admin Dose 100 MG; Start 02/03/18 at 17:00 Albuterol/ Ipratropium (Duoneb) 3 ml Q6H RESP THERAPY PRN HHN SHORTNESS OF BREATH; Start 02/04/18 at 16:00 Acetaminophen (Tylenol Tab) 650 mg Q4H PRN PO MILD PAIN(1-3)OR ELEVATED TEMP Last administered on 02/07/18 22:29; Admin Dose 650 MG; Start 02/04/18 at 16:00 Doxycycline Hyclate (Vibramycin) 100 mg BID PO Last administered on 02/13/18 09:01; Admin Dose 100 MG; Start 02/08/18 at 21:00 Ondansetron HCl (Zofran Tab) 4 mg Q4 PRN PO NAUSEA AND/OR VOMITING Last administered on 02/11/18 12:00; Admin Dose 4 MG; Start 02/08/18 at 21:00 Acetaminophen/ Hydrocodone Bitart ([place] (5/325)) 1 tab Q4H PRN PO MODERATE PAIN LEVEL 4-6; Start 02/09/18 at 02:05 Heparin Sodium (Porcine) (Heparin (5000 Units/1ml)) 5,000 unit BID SC Last administered on 02/13/18 09:02; Admin Dose 5,000 UNIT; Start 02/11/18 at 09:00 Polyethylene Glycol (Miralax) 17 gm BID PO Last administered on 02/13/18 09:01; Admin Dose 17 GM; Start 02/11/18 at 21:00 Bisacodyl (Dulcolax) 10 mg DAILY PRN PO CONSTIPATION Last administered on 02/11/18at 16:53; Admin Dose 10 MG; Start 02/11/18 at 16:00 Nystatin (Nystatin Susp) 5 ml QID PO Last administered on 02/13/18 17:13; Admin Dose 5 ML; Start 02/12/18 at 15:00 OSMAR WOLFE NP Feb 13, 2018 18:26
[2018-02-13 19:45] VITALS: BP 148/77; PULSE 76; RESP 18
[2018-02-13] MEDS: MONTELUKAST 10 MG TAB PO SCH (21:00)
[2018-02-13] MEDS: ONDANSETRON 4 MG TAB PO PRN (22:08)
--- NOTE | 2018-02-13 23:13 | NUR ---
CHARGE NURSE NOTE: DISCUSSED ENVIRONMENTAL SAFETY, AND BED ALARM WITH THE PATIENT. PATIENT REFUSING BED ALARM. ADVISED PATIENT TO CALL FOR ASSISTANCE TO THE BATHROOM, SINCE PATIENT UTILIZES WALKER. WILL NOTIFY
[2018-02-14 01:50] VITALS: BP 133/63; PULSE 77; RESP 18
--- NOTE | 2018-02-14 05:39 | NUR ---
VS are stable and pt is afebrile. No s/s of respiratory distress during shift. Pt denied having pain. Pt did c/o nausea and vomited x1; Zofran given and no c/o N/V since. Hourly rounding provided with call light within reach. Pt refused to have her bed alarms on despite education, charge nurse was made aware. Will endorse continuity of care to oncoming nurse. Addendum: 02/14/18 at 0602 by DILLON CORCORAN RN Once BUN and Creat are WNL pt may be cleared to get d/c.
[2018-02-14] MEDS: ONDANSETRON 4 MG TAB PO PRN (07:30)
[2018-02-14 08:12] VITALS: BP 121/55; PULSE 69; RESP 18
--- NOTE | 2018-02-14 08:31 | PN ---
DATE: 02/14/2018 SUBJECTIVE: The patient is stable, no events overnight. No fevers, chills. The patient had 1 episo de of vomiting. No other events noted. OBJECTIVE: VITAL SIGNS: Blood pressure is 133/63, respiration 18, pulse 77, temperature 98.5. HEENT: Head is normocephalic. NECK: Supple. HEART: Regular rate. LUNGS: Show diminished breath sounds at the base. ABDOMEN: Soft, nontender to palpation without rebound or guarding. EXTREMITIES: Negative for clubbing, cyanosis, no edema. DERMATOLOGIC: No rashes. MUSCULOSKELETAL: No joint effusion. NEUROLOGIC: No change in exam. MEDICATIONS: Reviewed. LABORATORY DATA: Shows sodium 142, potassium 3.8, BUN 46, creatinine 5.03. White count 8.4, hemoglo bin 8.2, platelet count is 270. ASSESSMENT AND PLAN: 1. Nonoliguric acute kidney injury with previous baseline creatinine of 0.53 mg/dL. Etiology of acut e kidney injury secondary to acute tubular necrosis due to vancomycin nephrotoxicity, possible AIN. The patient is currently in maintenance phase of acute tubular necrosis as renal function has been st able for the last 72 hours. My recommendation would be to continue current treatment plan. Continue supportive care, renally dose all meds. If renal function should begin to improve within the next 2 4 to 48 hours, patient may be discharged home and follow up in outpatient nephrology. We will contin ue to monitor closely. 2. Anemia. Continue to monitor hemoglobin and hematocrit levels. 3. Mineral bone disorder, monitor calcium and phosphorus levels. 4. Hypertension, controlled. Defer any LAURENCE inhibitor or ARBs at this time. 5. Cellulitis. Patient completed antibiotic course. 6. Depression. Continue medical management. 7. Anxiety disorder. Continue to monitor. Dictated By: MIHIR DEUTSCH DO NR/NTS Conf#: [id number] DID#: [id number] CC: ANDRIA JONES MD;*End*
[2018-02-14] MEDS: SERTRALINE 50 MG TAB PO SCH ×2 (09:00→09:41)
[2018-02-14] MEDS: POLYETHYLENE GLYCOL 17 GM PACKET PO SCH (09:00)
[2018-02-14] MEDS: NYSTATIN SUSP 5 ML CUP PO SCH ×4 (09:40→20:50)
[2018-02-14] MEDS: LACTOBACILLUS RHAMNOSUS CAP PO SCH (09:40)
[2018-02-14] MEDS: AMLODIPINE 10 MG TAB PO SCH (09:41)
[2018-02-14] MEDS: GABAPENTIN 100 MG CAP PO SCH ×3 (09:41→20:50)
[2018-02-14] MEDS: DOXYCYCLINE 100 MG TAB PO SCH ×2 (09:41→20:50)
[2018-02-14] MEDS: HEPARIN 5,000 UNIT/1 ML VIAL SC SCH ×2 (09:42→20:50)
--- NOTE | 2018-02-14 10:26 | NUR ---
PT NOTE Therapy day number 4 Subjective Denies pain Pain Scale NUMERIC Pain Intensity 0 (0-10) Patient Stated Goal for Pain Relief 0 (0-10) Pain Level Comment DENIES PAIN Exercise Assessment Label Bilat Upper Extremity Exercise Type Active ROM Additional Exercise Comments Supine: AROM BLE AP's, heel slides, SAQ, SLR, hip abd/add Exercise Start Time 10:26 Exercise End Time 10:38 Total Exercise Time 12 min (8-127) Transfer Training Start Time 10:38 Transfer Sit to Stand Ability Supervised Bed Mobility Sit to Supine Independent Additional Mobility Comments received EOB, left in semi-fowlers Transfer Training End Time 10:50 Total Transfer Training Time 12 min (8-127) Patient uses wheelchair Not Applicable Gait Training Start Time 10:50 Gait Assist Levels Supervised Assistive Devices Front Wheel Walker Ambulation Distance 100 feet Additional Gait Comments reciprocal patter, antalgic gait, no LOB/buckling, mod BUE pressure on AD Gait Training End Time 11:04 Total Gait Training Treatment Time 14 min (8-127) Weight Bearing Assessment Label Left Lower Extremity Weight Bearing Status Weight Bearing as Aaron Additional Stairs Assist Comments Pt refused due to nausea Static Sitting Balance Good Dynamic Sitting Balance Good Standing Static Balance Good Dynamic Standing Balance Good Additional Balance Assessments Comments FWW Safety Judgement Good Activity Tolerance Good Post Treatment Pain Intensity 0 0-10 Variance Documentation SEE BELOW AND PT NOTE Additional Post Treatment Comment Nausea Total Treament Time 38 min (8-127) Total Minutes 38 Total Units 3 PT Technical Record Comment PT NOTE S: Pt stated, "I am not feeling good today. I have been throwing up these past days due to all this medication they gave me. I am naseous so I won't be able to do much today." Agreeable for PT and cleared per DILLON MJ. O: Received pt sitting EOB w/food tray in front. Applied gait belt at EOB. STS to FWW Supervised. Gait training performed w/FWW 100' Supervised. Noted reciprocal pattern, antalgic gait, no LOB/buckling, mod BUE pressure on Ad, and decreased step length/stride. Pt required VCs to decrease BUE pressure from AD, increase step length/stride, and to not lift AD when making turns for safety. Pt verbalized and demonstrated w/fair return. Assisted pt back to room BTB Independent. Pt performed Supine AROM, see above for exercises, 2 sets x 10 per exercise. Left pt in comfort position, call light/phone within reach, and all needs met. Pt refused bed alarm, RN MJ aware. A: Good tolerance to tx. Pt showed no signs of distress or SOB during or after tx. No c/o dizziness or pain throughout tx. No stairs training today due to pt refusing due to nausea. Limited gait due to nausea. P: Continue POC and progress as tolerated.
[2018-02-14 14:29] VITALS: BP 126/60; PULSE 73; RESP 20
--- NOTE | 2018-02-14 15:08 | CONS ---
Date/Time of Note Date/Time of Note DATE: 02/14/18 TIME: 15:07 Assessment/Plan Assessment/Plan Hospital Course Subjective: Patient is awake looks comfortable no fevers, she had been nauseated and threw up after her morning medications were given WBC today 8.4 no shift no bands BUN 46 creatinine 5.03 Antimicrobials: Doxycycline Physical examination: Morbidly obese well-developed middle-aged woman who is alert in no distress head atraumatic normocephalic sclera nonicteric neck is obese chest rise symmetrical breath sounds clear heart: S1-S2 abdomen soft bowel sounds present extremities with left knee swelling, dressing clean dry and intact, erythema is resolving Assessment: 1. S/p cellulitis of left knee 2. Acute renal failure 3. Morbid obesity 4. Hypertension Plan: Stable, dc antibiotics, f/u nephrology recommendations, consider spacing medications instead of giving all together Result Diagram: 02/14/18 0543 02/14/18 0543 Results 24hrs Laboratory Tests Test 02/14/18 05:43 02/14/18 08:28 White Blood Count 8.4 Red Blood Count 2.98 L Hemoglobin 8.2 L Hematocrit 25.0 L Mean Corpuscular Volume 83.9 Mean Corpuscular Hemoglobin 27.5 L Mean Corpuscular Hemoglobin Concent 32.8 Red Cell Distribution Width 13.2 Platelet Count 270 Mean Platelet Volume 9.9 Immature Granulocytes % 0.400 Neutrophils % 68.3 Lymphocytes % 16.7 Monocytes % 11.0 Eosinophils % 3.0 Basophils % 0.6 Nucleated Red Blood Cells % 0.0 Immature Granulocytes # 0.030 Neutrophils # 5.8 Lymphocytes # 1.4 Monocytes # 0.9 Eosinophils # 0.3 Basophils # 0.1 Nucleated Red Blood Cells # 0.0 Sodium Level 142 Potassium Level 3.8 Chloride Level 103 Carbon Dioxide Level 26 Anion Gap 13 Blood Urea Nitrogen 46 H Creatinine 5.03 H Est Glomerular Filtrat Rate mL/min 9 L Glucose Level 93 Calcium Level 8.7 Phosphorus Level 6.6 H Magnesium Level 2.2 Random Vancomycin Level 7.7 Consultation Date/Type/Reason Admit Date/Time Feb 03, 2018 at 18:13 Initial Consult Date Type of Consult id Exam/Review of Systems Vital Signs Vitals Vital Signs Date Temp Pulse Resp B/P (MAP) Pulse Ox O2 O2 Flow FiO2 Time Delivery Rate 02/14/18 97.8 73 20 126/60 95 14:29 (82) 02/11/18 Room Air 15:24 Intake and Output 02/13/18 02/13/18 02/14/18 1515:00 23:00 07:00 IntakeIntake Total 1040 ml 240 ml 100 ml BalanceBalance 1040 ml 240 ml 100 ml Medications Medications Current Medications IV Flush (NS 3 ml) 3 ml PER PROTOCOL IV ; Start 02/03/18 at 00:00 Ondansetron HCl (Zofran Inj) 4 mg Q6H PRN IV NAUSEA AND/OR VOMITING Last administered on 02/07/18 20:58; Admin Dose 4 MG; Start 02/03/18 at 00:00 Albuterol (Ventolin Hfa) 2 puff Q4H RESP THERAPY PRN INH SHORTNESS OF BREATH; Start 02/03/18 at 00:00 Amlodipine Besylate (Norvasc) 10 mg DAILY PO Last administered on 02/14/18 09:41; Admin Dose 10 MG; Start 02/03/18 at 09:00 Gabapentin (Neurontin) 100 mg TID PO Last administered on 02/14/18 12:39; Admin Dose 100 MG; Start 02/03/18 at 09:00 Montelukast Sodium (Singulair) 10 mg QHS PO Last administered on 02/09/18 20:45; Admin Dose 10 MG; Start 02/03/18 at 21:00 Oxycodone HCl (Roxicodone) 5 mg Q4H PRN PO PAIN Last administered on 02/13/18 15:22; Admin Dose 5 MG; Start 02/03/18 at 00:00 Sertraline HCl (Zoloft) 25 mg DAILY PO Last administered on 02/13/18 09:01; Admin Dose 25 MG; Start 02/03/18 at 09:00 Tramadol HCl (Ultram) 50 mg Q6H PRN PO PAIN; Start 02/03/18 at 00:00 Zolpidem Tartrate (Ambien) 5 mg HS PRN PO INSOMNIA Last administered on 02/12/18 22:34; Admin Dose 5 MG; Start 02/03/18 at 07:00 Morphine Sulfate (morphine) 3 mg Q4H PRN IV SEVERE PAIN LEVEL 7-10 Last administered on 02/03/18at 03:17; Admin Dose 3 MG; Start 02/03/18 at 03:30 Hydromorphone HCl (Dilaudid) 1 mg Q3H PRN IV SEVERE PAIN LEVEL 7-10 Last administered on 02/08/18 00:55; Admin Dose 1 MG; Start 02/03/18 at 05:00 Lactobacillus Acidophilus/ Rhamnosus (Culturelle) 1 cap BID PO Last administered on 02/14/18 09:40; Admin Dose 1 CAP; Start 02/03/18 at 21:00 Docusate Sodium (Colace) 100 mg BID PRN PO CONSTIPATION Last administered on 02/11/18 16:53; Admin Dose 100 MG; Start 02/03/18 at 17:00 Albuterol/ Ipratropium (Duoneb) 3 ml Q6H RESP THERAPY PRN HHN SHORTNESS OF B REATH; Start 02/04/18 at 16:00 Acetaminophen (Tylenol Tab) 650 mg Q4H PRN PO MILD PAIN(1-3)OR ELEVATED TEMP Last administered on 02/07/18 22:29; Admin Dose 650 MG; Start 02/04/18 at 16:00 Doxycycline Hyclate (Vibramycin) 100 mg BID PO Last administered on 02/14/18 09:41; Admin Dose 100 MG; Start 02/08/18 at 21:00 Ondansetron HCl (Zofran Tab) 4 mg Q4 PRN PO NAUSEA AND/OR VOMITING Last admin istered on 02/14/18 07:30; Admin Dose 4 MG; Start 02/08/18 at 21:00 Acetaminophen/ Hydrocodone Bitart ([place] (5/325)) 1 tab Q4H PRN PO MODERATE PAIN LEVEL 4-6; Start 02/09/18 at 02:05 Heparin Sodium (Porcine) (Heparin (5000 Units/1ml)) 5,000 unit BID SC Last administered on 02/14/18 09:42; Admin Dose 5,000 UNIT; Start 02/11/18 at 09:00 Polyethylene Glycol (Miralax) 17 gm BID PO Last administered on 02/13/18 09:01; Admin Dose 17 GM; Start 02/11/18 at 21:00 Bisacodyl (Dulcolax) 10 mg DAILY PRN PO CONSTIPATION Last administered on 02/11/18 16:53; Admin Dose 10 MG; Start 02/11/18 at 16:00 Nystatin (Nystatin Susp) 5 ml QID PO Last administered on 02/14/18at 12:39; Admin Dose 5 ML; Start 02/12/18 at 15:00 ARCENIO CACERES NP Feb 14, 2018 15:08
--- NOTE | 2018-02-14 16:35 | PN ---
Date/Time of Note Date/Time of Note DATE: 02/14/18 TIME: 16:34 Assessment/Plan VTE Prophylaxis Risk score (from Nsg)>0 risk: 8 SCD applied (from Ns): No SCD contraindicated: low risk/ambulating Pharmacological prophylaxis: LMWH Lines/Catheters IV Catheter Type (from Nrsg): Peripheral IV Urinary Cath still in place: No Assessment/Plan Hospital Course A/P 1. Lt knee ssti. Stable resolvedfinished antibiotics, cont dressing care. home once ok with renal. 2. Left tka status, weightbearing/ PT/ pain control stable 3. Chronic asthma stable 4. Chronic hypertension 5. Chronic major depression 6. Debility 7. Acute renal failure/ATN vs AIN, stable observe. Home once ok w nephrology. 8. Vomiting, evaluate LFTs/lipase Subjective 02/03: Was at home and doing well. Had home health and PT visits. Ambulating. Then over the last 4 days noted some swelling pain erythema over her joint. Denies any toxicity nausea vomiting fever. Today feels better than yesterday. 02/04: No fever diarrhea. Pain improved. Participated with PT. Awaiting orthopedic opinion 02/12: Events noted. No nausea vomiting fever. Ambulating tolerating diet. 02/13: No events, anticipating going home soon. Participating with PT 02/14: Vomiting noted. No significant fever abdominal pain or diarrhea. O: Vital signs stable Physical exam No pallor Reg no mrg Clear Bs+ nt nd; no r/r/g Lt knee: No erythema/ warmth, tenderness, or edema Result Diagram: 02/14/18 0543 02/14/18 0543 Results 24hrs Laboratory Tests Test 02/14/18 05:43 02/14/18 08:28 White Blood Count 8.4 Red Blood Count 2.98 L Hemoglobin 8.2 L Hematocrit 25.0 L Mean Corpuscular Volume 83.9 Mean Corpuscular Hemoglobin 27.5 L Mean Corpuscular Hemoglobin Concent 32.8 Red Cell Distribution Width 13.2 Platelet Count 270 Mean Platelet Volume 9.9 Immature Granulocytes % 0.400 Neutrophils % 68.3 Lymphocytes % 16.7 Monocytes % 11.0 Eosinophils % 3.0 Basophils % 0.6 Nucleated Red Blood Cells % 0.0 Immature Granulocytes # 0.030 Neutrophils # 5.8 Lymphocytes # 1.4 Monocytes # 0.9 Eosinophils # 0.3 Basophils # 0.1 Nucleated Red Blood Cells # 0.0 Sodium Level 142 Potassium Level 3.8 Chloride Level 103 Carbon Dioxide Level 26 Anion Gap 13 Blood Urea Nitrogen 46 H Creatinine 5.03 H Est Glomerular Filtrat Rate mL/min 9 L Glucose Level 93 Calcium Level 8.7 Phosphorus Level 6.6 H Magnesium Level 2.2 Random Vancomycin Level 7.7 Exam/Review of Systems Vital Signs Vitals Vital Signs Date Temp Pulse Resp B/P (MAP) Pulse Ox O2 O2 Flow FiO2 Time Delivery Rate 02/14/18 97.8 73 20 126/60 95 14:29 (82) 02/11/18 Room Air 15:24 Intake and Output 02/13/18 02/13/18 02/14/18 1515:00 23:00 07:00 IntakeIntake Total 1040 ml 240 ml 100 ml BalanceBalance 1040 ml 240 ml 100 ml Medications Medications Current Medications IV Flush (NS 3 ml) 3 ml PER PROTOCOL IV ; Start 02/03/18 at 00:00 Ondansetron HCl (Zofran Inj) 4 mg Q6H PRN IV NAUSEA AND/OR VOMITING Last administered on 02/07/18 20:58; Admin Dose 4 MG; Start 02/03/18 at 00:00 Albuterol (Ventolin Hfa) 2 puff Q4H RESP THERAPY PRN INH SHORTNESS OF BREATH; Start 02/03/18 at 00:00 Amlodipine Besylate (Norvasc) 10 mg DAILY PO Last administered on 02/14/18 09:41; Admin Dose 10 MG; Start 02/03/18 at 09:00 Gabapentin (Neurontin) 100 mg TID PO Last administered on 02/14/18 12:39; Admin Dose 100 MG; Start 02/03/18 at 09:00 Montelukast Sodium (Singulair) 10 mg QHS PO Last administered on 02/09/18 20:45; Admin Dose 10 MG; Start 02/03/18 at 21:00 Oxycodone HCl (Roxicodone) 5 mg Q4H PRN PO PAIN Last administered on 02/13/18 15:22; Admin Dose 5 MG; Start 02/03/18 at 00:00 Sertraline HCl (Zoloft) 25 mg DAILY PO Last administered on 02/13/18 09:01; Admin Dose 25 MG; Start 02/03/18 at 09:00 Tramadol HCl (Ultram) 50 mg Q6H PRN PO PAIN; Start 02/03/18 at 00:00 Zolpidem Tartrate (Ambien) 5 mg HS PRN PO INSOMNIA Last administered on 02/12/18 22:34; Admin Dose 5 MG; Start 02/03/18 at 07:00 Morphine Sulfate (morphine) 3 mg Q4H PRN IV SEVERE PAIN LEVEL 7-10 Last a dministered on 02/03/18 03:17; Admin Dose 3 MG; Start 02/03/18 at 03:30 Hydromorphone HCl (Dilaudid) 1 mg Q3H PRN IV SEVERE PAIN LEVEL 7-10 Last administered on 02/08/18 00:55; Admin Dose 1 MG; Start 02/03/18 at 05:00 Lactobacillus Acidophilus/ Rhamnosus (Culturelle) 1 cap BID PO Last admini stered on 02/14/18 09:40; Admin Dose 1 CAP; Start 02/03/18 at 21:00 Docusate Sodium (Colace) 100 mg BID PRN PO CONSTIPATION Last administered on 02/11/18 16:53; Admin Dose 100 MG; Start 02/03/18 at 17:00 Albuterol/ Ipratropium (Duoneb) 3 ml Q6H RESP THERAPY PRN HHN SHORTNESS OF BREATH; Start 02/04/18 at 16:00 Acetaminophen (Tylenol Tab) 650 mg Q4H PRN PO MILD PAIN(1-3)OR ELEVATED TEMP Last administered on 02/07/18 22:29; Admin Dose 650 MG; Start 02/04/18 at 16:00 Doxycycline Hyclate (Vibramycin) 100 mg BID PO Last administered on 02/14/18 09:41; Admin Dose 100 MG; Start 02/08/18 at 21:00 Ondansetron HCl (Zofran Tab) 4 mg Q4 PRN PO NAUSEA AND/OR VOMITING Last administered on 02/14/18 07:30; Admin Dose 4 MG; Start 02/08/18 at 21:00 Acetaminophen/ Hydrocodone Bitart ([place] (5/325)) 1 tab Q4H PRN PO MODERATE PAIN LEVEL 4-6; Start 02/09/18 at 02:05 Heparin Sodium (Porcine) (Heparin (5000 Units/1ml)) 5,000 unit BID SC Last administered on 02/14/18 09:42; Admin Dose 5,000 UNIT; Start 02/11/18 at 09:00 Polyethylene Glycol (Miralax) 17 gm BID PO Last administered on 02/13/18 09:01; Admin Dose 17 GM; Start 02/11/18 at 21:00 Bisacodyl (Dulcolax) 10 mg DAILY PRN PO CONSTIPATION Last administered on 02/11/18at 16:53; Admin Dose 10 MG; Start 02/11/18 at 16:00 Nystatin (Nystatin Susp) 5 ml QID PO Last administered on 02/14/18 12:39; Admin Dose 5 ML; Start 02/12/18 at 15:00 CALDERON LAYTON MD Feb 14, 2018 16:35
--- NOTE | 2018-02-14 16:43 | NUR ---
RN NOTES No significant change, vital signs remained stable all throughout the shift. Patient was seen by Dr Maldonado in early am with labs ordered in am. Also seen by Dr Mckee with orders noted. Patient denies any pain upon each assessment. Able to ambulate with PT well in the hallway. Kept safe and comfortable. Refused Zoloft and Miralax. MD aware. Assisted at all times. Will continue to monitor.
[2018-02-14] MEDS ORDERED: ONDANSETRON 4 MG INJ IV PRN (17:00)
[2018-02-14] MEDS ORDERED: POLYETHYLENE GLYCOL 17 GM PACKET PO PRN (17:00)
[2018-02-14 20:27] VITALS: BP 132/75; PULSE 77; RESP 18
[2018-02-14] MEDS: ZOLPIDEM 5 MG TAB PO PRN (20:50)
[2018-02-14] MEDS: MONTELUKAST 10 MG TAB PO SCH (20:50)
[2018-02-15] MEDS: oxyCODONE 5 MG TAB PO PRN (01:07)
[2018-02-15 02:13] VITALS: BP 130/58; PULSE 75; RESP 20
--- NOTE | 2018-02-15 06:33 | NUR ---
VS stable and pt afebrile. No acute changes or s/s of respiratory distress during shift. Pt c/o pain and medicated with PRN pain med. Pt denied having Nausea throughout shift. Pt ambulates with walker to restroom and is urinating. Hourly rounding provided. Fall precautions observed with call light within reach. Will endorse continuity of care to oncoming nurse.
[2018-02-15 08:09] VITALS: BP 135/63; PULSE 71; RESP 18
--- NOTE | 2018-02-15 08:48 | PN ---
DATE: 02/15/2018 SUBJECTIVE: The patient is stable. Patient has less nausea. Overall, is feeling better, adequate u rinary output. No other events noted. OBJECTIVE: VITAL SIGNS: Blood pressure is 130/58, respiratory rate 20, pulse 75, temperature 98.6. HEENT: Head is normocephalic. NECK: Supple. HEART: Regular rate. LUNGS: Show diminished breath sounds at the base. ABDOMEN: Soft, nontender to palpation without rebound or guarding. EXTREMITIES: Negative for clubbing, cyanosis, no edema. DERMATOLOGIC: No rashes. MUSCULOSKELETAL: No joint effusions. NEUROLOGIC: No change in exam. MEDICATIONS: Patient medications have been reviewed. LABORATORY DATA: Currently pending. ASSESSMENT AND PLAN: 1. Nonoliguric acute kidney injury with previous baseline creatinine of 0.53 mg/dL. Etiology of acu te kidney injury secondary to acute tubular necrosis due to vancomycin nephrotoxicity. The patient a ppears to be entering recovery phase of acute tubular necrosis as renal function has slowly been impr oving. Will follow up renal panel today. If renal function has moderately improved. The patient ma y be discharged home with followup with nephrology in 2 to 3 days for a lab check. Otherwise, contin ue current treatment plans, supportive care, renally dose all meds. 2. Anemia. Monitor H and H levels. 3. Mineral bone disorder, monitor calcium and phosphorus levels. 4. Hypertension, controlled. Continue current blood pressure regimen. Defer any LAURENCE inhibitor ARB at this time. 5. Cellulitis. Continue current antibiotic regimen. 6. Depression. Continue current treatment plan. 7. Anxiety disorder. Continue current medical management. Dictated By: MIHIR KONG/LITA Conf#: [id number] DID#: [id number]
[2018-02-15] MEDS: NYSTATIN SUSP 5 ML CUP PO SCH ×2 (09:00→13:00)
[2018-02-15] MEDS: SERTRALINE 50 MG TAB PO SCH (09:00)
[2018-02-15] MEDS: GABAPENTIN 100 MG CAP PO SCH ×2 (09:00→13:00)
[2018-02-15] MEDS: AMLODIPINE 10 MG TAB PO SCH (09:06)
[2018-02-15] MEDS: DOXYCYCLINE 100 MG TAB PO SCH (09:08)
[2018-02-15] MEDS: HEPARIN 5,000 UNIT/1 ML VIAL SC SCH (09:19)
--- NOTE | 2018-02-15 10:00 | NUR ---
patient c/o nasea and vomitting after the antibiotics.she was refusing the antibiotics again.Notified regarding this and he said''ok i will talk with her''
--- NOTE | 2018-02-15 11:05 | PDOCDIS ---
Discharge Instructions CONDITION [id number] Patient Condition: [id number] Good HOME CARE INSTRUCTIONS: [id number] Special Diet: Sbarl0x Regular diet ACTIVITY: [id number] Activity Restrictions: [id number] Slowly Increase Activity Avoid heavy lifting FOLLOW UP/APPOINTMENTS Follow-up Plan Dr Carlin 2wks. Nephrology 1wk; done BMP blood work 2days before. PCP 1wk CALDERON LAYTON MD Feb 15, 2018 11:05
[2018-02-15] MEDS ORDERED: NYST1000 PO (11:08)
[2018-02-15] MEDS ORDERED: ACET325T33 PO (11:08)
[2018-02-15] MEDS ORDERED: ONDA4TAB14 PO (11:08)
--- NOTE | 2018-02-15 11:38 | DS ---
Date/Time of Note Date/Time of Note DATE: 02/15/18 TIME: 11:33 Discharge Summary Admission/Discharge Info Admit Date/Time Feb 03, 2018 at 18:13 Discharge Date/Time Patient Condition: Stable Consults Dr Tesfaye Maldonado Procedures CXR- negative Venous Bilat Lwr - negative XR- Knee IMPRESSION: Minimally increased echogenicity of both kidneys suggesting medical renal disease. No hydronephrosis. Hx of Present Illness 49-year-old female admitted with left knee infection concern. Recently had left knee arthroplasty. Hospital Course Evaluated by ID and orthopedic surgery. Found to have a local skin and soft tissue infection. She was given antibiotics in the hospital. She did not tolerate vancomycin and had renal failure. Seen by nephrology. Presently creatinine is improved, stable and fit for discharge. She needs to have BMP in 1 week and follow-up with nephrology. She is aware and I gave her a note to get the blood work done. She has finished antibiotics for infection. She will continue therapy home health and follow-up with Ortho in terms of her DJD. A/P 1. Lt knee ssti. Stable resolvedfinished antibiotics, cont dressing care. home today. 2. Left tka status, weightbearing/ PT/ pain control stable follow-up with Orth O 3. Chronic asthma stable 4. Chronic hypertension 5. Chronic major depression 6. Debility 7. Acute renal failure/ATN vs AIN, stable/ observe. Home today. Creatinine 4.6. Was up to 6.0 8. Vomiting, evaluated LFTs/lipase no abdominal discomfort this is due to not being able to tolerate all of her p.o. medications. PRN Noah discharge home Subjective 02/03: Was at home and doing well. Had home health and PT visits. Ambulating. Then over the last 4 days noted some swelling pain erythema over her joint. Denies any toxicity nausea vomiting fever. Today feels better than yesterday. 02/04: No fever diarrhea. Pain improved. Participated with PT. Awaiting orthopedic opinion 02/12: Events noted. No nausea vomiting fever. Ambulating tolerating diet. 02/13: No events, anticipating going home soon. Participating with PT 02/14: Vomiting noted. No significant fever abdominal pain or diarrhea. 02/15: Vomits during the morning after taking all of her medications. No distress, stable and fit for discharge O: Vital signs stable Physical exam No pallor Reg no mrg Clear Bs+ nt nd; no r/r/g Lt knee: No erythema/ warmth, tenderness, or edema Home Meds Active Scripts Ondansetron (Ondansetron Odt) 4 Mg Tab.rapdis, 4 MG PO Q6H PRN for NAUSEA AND/OR VOMITING, #10 TAB Prov:CALDERON LAYTON MD 02/15/18 Acetaminophen* (Tylenol*) 325 Mg Tablet, 650 MG PO Q4H PRN for MILD PAIN(1-3)OR ELEVATED TEMP for 1 Day, TAB Prov:CALDERON LAYTON MD 02/15/18 Nystatin (Nystatin) 100,000 Unit/1 Ml Oral.susp, 5 ML PO QID for 7 Days, #1 Prov:CALDERON LAYTON MD 02/15/18 Ipratropium-Albuterol (Ipratropium-Albuterol) 3 Ml Nebu, 3 ML HHN Q6H RESP THERAPY for 14 Days Prov:CUONG SILVA 03/20/15 Reported Medications Gabapentin* (Gabapentin*) 100 Mg Capsule, 100 MG PO TID, #90 CAP 02/02/18 Aspirin Ec (Aspir 81) 81 Mg Tablet.dr, 81 MG PO DAILY, #30 TAB 02/02/18 Oxycodone Hcl* (IR) (Oxycodone Hcl*) 5 Mg Capsule, 5 MG PO Q4H PRN for PAIN, CAP 02/02/18 Sertraline Hcl* (Sertraline Hcl*) 25 Mg Tablet, 25 MG PO DAILY, #30 TAB 01/24/18 Montelukast Sodium* (Montelukast Sodium*) 10 Mg Tablet, 10 MG PO QHS, #30 TAB 01/24/18 Amlodipine Besylate* (Amlodipine Besylate*) 10 Mg Tablet, 10 MG PO DAILY, #30 TAB 01/24/18 Albuterol Sulfate* (Ventolin HFA*) 18 Gm Hfa.aer.ad, 2 PUFF INHALATION Q4H, #1 INHALER 07/19/15 Discontinued Reported Medications Celecoxib* (Celebrex*) 200 Mg Capsule, 200 MG PO BID, CAP 02/02/18 Tramadol Hcl* (Ultram*) 50 Mg Tablet, 50 MG PO Q6H PRN for PAIN, TAB 02/02/18 Cyanocobalamin* (Vitamin B12*) 500 Mcg Tab, 5000 MCG PO DAILY, TAB 01/24/18 Temazepam* (Restoril*) 15 Mg Capsule, 15 MG PO HS PRN for INSOMNIA, CAP 03/16/15 Follow-up Plan Dr Carlin 2wks. Nephrology 1wk; done BMP blood work 2days before. PCP 1wk Primary Care Provider [facility] Time spent on discharge: > 30 minutes Pending Labs Laboratory Tests Test 02/15/18 07:18 Sodium Level 145 mmol/L (135-144) Potassium Level 4.0 mmol/L (3.5-5.1) Chloride Level 105 mmol/L (97-110) Carbon Dioxide Level 28 mmol/L (21-31) Anion Gap 12 (5-13) Blood Urea Nitrogen 43 mg/dl (7-20) Creatinine 4.68 mg/dl (0.44-1.00) Est Glomerular Filtrat Rate mL/min 10 mL/min (>60) Glucose Level 95 mg/dl (70-220) Calcium Level 8.9 mg/dl (8.4-10.2) Phosphorus Level 6.3 mg/dl (2.5-4.9) Magnesium Level 2.1 mg/dl (1.7-2.5) Total Bilirubin 0.0 mg/dl (0.2-1.3) Direct Bilirubin 0.00 mg/dl (0.00-0.20) Indirect Bilirubin 0.0 mg/dl (0-1.1) Aspartate Amino Transf (AST/SGOT) 15 IU/L (15-46) Alanine Aminotransferase (ALT/SGPT) 25 IU/L (13-69) Alkaline Phosphatase 61 IU/L (42-121) Total Protein 5.8 g/dl (6.1-8.1) Albumin 3.2 g/dl (3.3-4.9) Globulin 2.60 g/dl (1.3-3.2) Albumin/Globulin Ratio 1.23 Lipase 23 U/L (23-300) CALDERON LAYTON MD Feb 15, 2018 11:38
--- NOTE | 2018-02-15 12:41 | NUR ---
notified hospice case manager regarding the home health and discharge orders.she is working with that.
--- NOTE | 2018-02-15 13:10 | NUR ---
PT NOTE DILLON Sue cleared pt for PT. Attempted to see pt however pt refused. Educated pt on benefits and importance of PT and OOB activities and despite max encouragement from this therapist, pt continued to refused. Stated, "I am about to leave. I'm discharged and I'm just waiting for my nurse to come. I don't want any right now. I'm getting therapy at home." Respected pt's wishes. Will f/u if time permits
--- NOTE | 2018-02-15 14:12 | NUR ---
SANDY NOTES ARRANGED HOME HEALTH [facility] ACCEPTED BY LINK # [phone]( patient recent HH agency ) FOR HOME SAFETY, WOUND CARE AND CONT. WITH PHYSICAL THERAPY MEDICAL RECORDS FAXED TO [phone] FABIO Houser X [phone]
--- NOTE | 2018-02-15 15:03 | CONS ---
Date/Time of Note Date/Time of Note DATE: 02/15/18 TIME: 15:02 Assessment/Plan Assessment/Plan Hospital Course Subjective: Patient is awake looks comfortable no fevers Physical examination: Morbidly obese well-developed middle-aged woman who is alert in no distress head atraumatic normocephalic sclera nonicteric neck is obese chest rise symmetrical breath sounds clear heart: S1-S2 abdomen soft bowel sounds present extremities with left knee swelling, dressing clean dry and intact, erythema is resolving Assessment: 1. S/p cellulitis of left knee 2. Acute renal failure 3. Morbid obesity 4. Hypertension Plan: Remains stable, pending dc home off abx, pt to fu with her ortho surgeon outpatient Result Diagram: 02/14/18 0543 02/15/18 0718 Results 24hrs Laboratory Tests Test 02/15/18 07:18 Sodium Level 145 H Potassium Level 4.0 Chloride Level 105 Carbon Dioxide Level 28 Anion Gap 12 Blood Urea Nitrogen 43 H Creatinine 4.68 H Est Glomerular Filtrat Rate mL/min 10 L Glucose Level 95 Calcium Level 8.9 Phosphorus Level 6.3 H Magnesium Level 2.1 Total Bilirubin 0.0 L Direct Bilirubin 0.00 Indirect Bilirubin 0.0 Aspartate Amino Transf (AST/SGOT) 15 Alanine Aminotransferase (ALT/SGPT) 25 Alkaline Phosphatase 61 Total Protein 5.8 L Albumin 3.2 L Globulin 2.60 Albumin/Globulin Ratio 1.23 Lipase 23 Consultation Date/Type/Reason Admit Date/Time Feb 03, 2018 at 18:13 Initial Consult Date Type of Consult id Exam/Review of Systems Vital Signs Vitals Vital Signs Date Temp Pulse Resp B/P (MAP) Pulse Ox O2 O2 Flow FiO2 Time Delivery Rate 02/15/18 98.1 71 18 135/63 94 08:09 (87) 02/11/18 Room Air 15:24 Intake and Output 02/14/18 02/14/18 02/15/18 1515:00 23:00 07:00 IntakeIntake Total 480 ml 1400 ml 1300 ml BalanceBalance 480 ml 1400 ml 1300 ml Medications Medications Current Medications IV Flush (NS 3 ml) 3 ml PER PROTOCOL IV ; Start 02/03/18 at 00:00 Albuterol (Ventolin Hfa) 2 puff Q4H RESP THERAPY PRN INH SHORTNESS OF BREATH; Start 02/03/18 at 00:00 Amlodipine Besylate (Norvasc) 10 mg DAILY PO Last administered on 02/15/18 09:06; Admin Dose 10 MG; Start 02/03/18 at 09:00 Gabapentin (Neurontin) 100 mg TID PO Last administered on 02/14/18 12:39; Admin Dose 100 MG; Start 02/03/18 at 09:00 Montelukast Sodium (Singulair) 10 mg QHS PO Last administered on 02/09/18 20:45; Admin Dose 10 MG; Start 02/03/18 at 21:00 Oxycodone HCl (Roxicodone) 5 mg Q4H PRN PO PAIN Last administered on 02/15/18 01:07; Admin Dose 5 MG; Start 02/03/18 at 00:00 Sertraline HCl (Zoloft) 25 mg DAILY PO Last administered on 02/13/18 09:01; Admin Dose 25 MG; Start 02/03/18 at 09:00 Tramadol HCl (Ultram) 50 mg Q6H PRN PO PAIN; Start 02/03/18 at 00:00 Zolpidem Tartrate (Ambien) 5 mg HS PRN PO INSOMNIA Last administered on 02/14 20:50; Admin Dose 5 MG; Start 02/03/18 at 07:00 Morphine Sulfate (morphine) 3 mg Q4H PRN IV SEVERE PAIN LEVEL 7-10 Last administered on 02/03/18 03:17; Admin Dose 3 MG; Start 02/03/18 at 03:30 Hydromorphone HCl (Dilaudid) 1 mg Q3H PRN IV SEVERE PAIN LEVEL 7-10 Last administered on 02/08/18 00:55; Admin Dose 1 MG; Start 02/03/18 at 05:00 Docusate Sodium (Colace) 100 mg BID PRN PO CONSTIPATION Last administered on 02/11/18 16:53; Admin Dose 100 MG; Start 02/03/18 at 17:00 Albuterol/ Ipratropium (Duoneb) 3 ml Q6H RESP THERAPY PRN HHN SHORTNESS OF BREATH; Start 02/04/18 at 16:00 Acetaminophen (Tylenol Tab) 650 mg Q4H PRN PO MILD PAIN(1-3)OR ELEVATED TEMP Last administered on 02/07/18 22:29; Admin Dose 650 MG; Start 02/04/18 at 16:00 Doxycycline Hyclate (Vibramycin) 100 mg BID PO Last administered on 02/15/18 09:08; Admin Dose 100 MG; Start 02/08/18 at 21:00 Ondansetron HCl (Zofran Tab) 4 mg Q4 PRN PO NAUSEA AND/OR VOMITING Last administered on 02/14/18 07:30; Admin Dose 4 MG; Start 02/08/18 at 21:00 Acetaminophen/ Hydrocodone Bitart ([place] (5/325)) 1 tab Q4H PRN PO MODERATE PAIN LEVEL 4-6; Start 02/09/18 at 02:05 Heparin Sodium (Porcine) (Heparin (5000 Units/1ml)) 5,000 unit BID SC Last administered on 02/15/18 09:19; Admin Dose 5,000 UNIT; Start 02/11/18 at 09:00 Bisacodyl (Dulcolax) 10 mg DAILY PRN PO CONSTIPATION Last administered on 02/11/18at 16:53; Admin Dose 10 MG; Start 02/11/18 at 16:00 Nystatin (Nystatin Susp) 5 ml QID PO Last administered on 02/14/18 12:39; Admin Dose 5 ML; Start 02/12/18 at 15:00 Ondansetron HCl (Zofran Inj) 4 mg Q4H PRN IV NAUSEA AND/OR VOMITING; Start 02/14/18 at 17:00 Polyethylene Glycol (Miralax) 17 gm BID PRN PO CONSTIPATION; Start 02/14/18 at 17:00 ARCENIO CACERES NP Feb 15, 2018 15:03
--- NOTE | 2018-02-15 15:30 | NUR ---
patient is asking her walker .she said that ''i kept my walker in front lobby when i come to the hospital''called front end architect and found walker in lost and found.gave it to the patient before patient leave the hospital.gave all the prescription ,health summary and discharge instruction as ordered.ask her to f/u with eugenia chin and kamille in one week.ask her to check the blood test two days before the nephrology appoinment.patient verbalized understanding.per bilingual case manager already set up home health for safety ,physical therapy and wound care.family at bed side.she took her all the belongins and left the floor with stable condition via wheel chair.
== END 2018-02-15 15:24 | disposition home health service (06) | DRG 862 ==
LOC: FTE 17:32 → PP2 22:32 → OBSVTOIN 02-03 18:13
PROVIDERS: ADMIT Internal Medicine; ATTEND Internal Medicine
DX: T81.40XA Infection following a procedure, unspecified, initial encounter (principal); N17.0 Acute kidney failure with tubular necrosis; L03.116 Cellulitis of left lower limb; E66.01 Morbid (severe) obesity due to excess calories; Z68.34 Body mass index [BMI] 34.0-34.9, adult; F32.9 Major depressive disorder, single episode, unspecified; I10 Essential (primary) hypertension; R53.81 Other malaise; Z98.84 Bariatric surgery status; Z89.512 Acquired absence of left leg below knee; N14.1 Nephropathy induced by other drugs, medicaments and biological substances; T36.8X5A Adverse effect of other systemic antibiotics, initial encounter; D64.9 Anemia, unspecified
CPT/HCPCS: 36415; 73562; 76775; 80048; 80053; 80202; 81001; 81003; 82043; 83036; 83690; 83735; 84100; 84145; 84155; 84300; 84443; 85025; 85610; 85651; 85730; 86140; 87081; 87086; 90686; 93971; 96374; 96375; 96376; 97110; 97116; 97161; 97530; G0378; J0696; J1170; J1644; J1650; J2270; J2405; J2543; J3370; J7030; J7050

== ENCOUNTER 2018-10-24 06:51 | Inpatient (IN) | payer OTHER ==
[~2018-10-24] VITALS: Ht 147.3 cm; Wt 100.2 kg
[2018-10-24] VITALS (29 sets, daily range): BP systolic 98–155; BP diastolic 55–81; PULSE 75–92; RESP 12–21; Ht 147.3 cm; Wt 100.2 kg
[~2018-10-24 06:51] MED LIST changes: +ACET325T33 PO; +ACETAMINOPHEN 500 MG TAB PO ONE; +AMLO-218 PO; +ASPI-535 PO; +CEFAZOLIN 1 GM/50 ML (PMX) 50 ML IVPB ONE; +CHLO25TA2 PO; -CYAN500T46 PO; +DEXAMETHASONE 4 MG/ML 1 ML INJ IV ONE; +GABA100C14 PO; +HYDR-4011 PO; +LACTATED RINGER'S 1,000 ML IV SCH; +LANSOPRAZOLE 30 MG CAP PO ONE; +NYST1000 PO; +OMEP20CA17 PO; +ONDA4TAB14 PO; +ONDANSETRON 4 MG INJ IV ONE; +OXYC5CAP17 PO; +SERT50TA6 PO; +TEMA15CA PO; -TEMA15CA6 PO; +TRANEXAMIC ACID 1GM/100ML(PMX) 100 ML INTRA-OP X1 IVPB ONE; +TRANEXAMIC ACID 1GM/100ML(PMX) 100 ML PRE-OP X1 IVPB ONE; +oxyCODONE (CR) 10 MG TAB [oxyCONTIN] PO ONE
[2018-10-24] MEDS ORDERED: ROPIVACAINE 0.5 % 30 ML VIAL ONE (09:10)
[2018-10-24] MEDS ORDERED: MIDAZOLAM 1 MG/ML 2 ML INJ ONE ×2 (09:10→10:34)
[2018-10-24] MEDS ORDERED: DEXAMETHASONE 4 MG/ML 5 ML INJ ONE (09:10)
[2018-10-24] MEDS ORDERED: ONDANSETRON 4 MG INJ ONE (09:10)
[2018-10-24] MEDS ORDERED: METOCLOPRAMIDE 10 MG INJ ONE (09:10)
[2018-10-24] MEDS ORDERED: PROPOFOL 100 ML ONE (09:10)
[2018-10-24] MEDS ORDERED: morphine SULFATE/PF (10 MG/10 ML) INJ ONE (09:11)
[2018-10-24] MEDS ORDERED: CEFAZOLIN 1 GM INJ ONE ×2 (09:16→11:08)
[2018-10-24] MEDS ORDERED: TRANEXAMIC ACID 1GM/100ML(PMX) 0 ML ONE (09:17)
[2018-10-24] MEDS ORDERED: POLYMYXIN B 500000 UNIT INJ ONE (09:24)
[2018-10-24] MEDS ORDERED: PAIN COCKTAIL VANCO INJ SCH ×7 (10:30)
[2018-10-24] MEDS ORDERED: TRANEXAMIC ACID 1GM/100ML(PMX) 100 ML ONE ×2 (11:07→11:08)
[2018-10-24] MEDS ORDERED: BACITRACIN 50000 UNITS INJ IRR ONE (11:12)
[2018-10-24] MEDS ORDERED: SENNA/DOCUSATE NA (8.6MG/50MG) TAB PO PRN (12:30)
[2018-10-24] MEDS ORDERED: METOCLOPRAMIDE 10 MG INJ IV PRN (12:30)
[2018-10-24] MEDS ORDERED: NA PHOSPHATE/BIPHOS 133 ML ENEMA PR PRN (12:30)
[2018-10-24] MEDS ORDERED: OXYCODONE/ACETAMINOPHEN (5/325) TAB PO PRN ×2 (12:30)
[2018-10-24] MEDS ORDERED: HYDROmorphONE 0.5 MG/0.5 ML SYG IV PRN ×2 (12:30)
[2018-10-24] MEDS ORDERED: ONDANSETRON 4 MG INJ IV PRN ×2 (12:30)
[2018-10-24] MEDS ORDERED: DOCUSATE SODIUM 100 MG CAP PO ONE (12:30)
[2018-10-24] MEDS ORDERED: LABETALOL HCL 20MG INJ IV PRN (12:30)
[2018-10-24] MEDS ORDERED: HYDROmorphONE 1 MG/5 ML IV SYRINGE IV PRN ×3 (12:30)
[2018-10-24] MEDS ORDERED: morphine 2 MG INJ IV PRN ×2 (12:30)
[2018-10-24] MEDS ORDERED: FENTAnyl 50 MCG/ML VIAL IV PRN ×3 (12:30)
[2018-10-24] MEDS ORDERED: MAGNESIUM HYDROXIDE 30ML CUP PO PRN (12:30)
[2018-10-24] MEDS ORDERED: hydrALAzine 20 MG INJ IV PRN (12:30)
[2018-10-24] MEDS ORDERED: NACL 0.9% 3 ML SYG IV SCH (12:30)
[2018-10-24] MEDS ORDERED: MEPERIDINE 25 MG INJ IV PRN (12:30)
[2018-10-24] MEDS ORDERED: DIPHENHYDRAMINE 50 MG INJ IV PRN ×2 (12:30)
[2018-10-24] MEDS ORDERED: NALBUPHINE HCL (10 MG/1 ML) INJ IV PRN (12:30)
[2018-10-24] MEDS ORDERED: ACETAMINOPHEN 500 MG TAB PO PRN (12:30)
[2018-10-24] MEDS ORDERED: HYDROCODONE/APAP (5/325) TAB PO PRN (12:30)
[2018-10-24] MEDS ORDERED: EPHEDrine 25 MG/5 ML SYG IV PRN (12:30)
[2018-10-24] MEDS ORDERED: NALOXONE (0.4 MG/ML) INJ IV PRN ×2 (12:30)
[2018-10-24] MEDS ORDERED: BISACODYL 10 MG SUPP PR PRN (12:30)
[2018-10-24] MEDS ORDERED: CEFAZOLIN 2 GM/50 ML (PMX) 50 ML IVPB SCH ×2 (12:30→13:00)
[2018-10-24] MEDS: ONDANSETRON 4 MG INJ IV SCH ×2 (12:47→18:18)
[2018-10-24] MEDS: GABAPENTIN 100 MG CAP PO SCH ×2 (13:00→21:00)
[2018-10-24] MEDS ORDERED: PIPER-TAZO 3.375 GM IV (PMX) 100 ML ONE (13:23)
[2018-10-24] MEDS ORDERED: ALBUTEROL/IPRATROPIUM (NEB) 3 ML AMP HHN PRN (16:30)
[2018-10-24] MEDS: CEFAZOLIN 2 GM/50 ML (PMX) 50 ML IVPB SCH (22:58)
[2018-10-25] MEDS: ONDANSETRON 4 MG INJ IV SCH ×2 (00:11→06:32)
[2018-10-25 00:16] VITALS: BP 135/60; PULSE 88; RESP 18
[2018-10-25] MEDS: KETOROLAC 15 MG INJ IV PRN ×3 (03:41→18:03)
[2018-10-25 08:06] VITALS: BP 129/60; PULSE 82; RESP 18
[2018-10-25] MEDS: ASPIRIN (EC) 81 MG TAB PO SCH ×2 (09:00→20:45)
[2018-10-25] MEDS: CELECOXIB 100 MG CAP PO SCH ×2 (09:00→20:44)
[2018-10-25] MEDS: GABAPENTIN 100 MG CAP PO SCH ×3 (09:00→20:45)
[2018-10-25] MEDS: DOCUSATE SODIUM 100 MG CAP PO SCH ×2 (09:00→20:45)
[2018-10-25] MEDS: CEFAZOLIN 2 GM/50 ML (PMX) 50 ML IVPB SCH (10:26)
[2018-10-25] MEDS: oxyCODONE 5 MG TAB PO PRN (11:46)
[2018-10-25] MEDS ORDERED: POTASSIUM CHLORIDE (SR) 20 MEQ TAB PO STA (13:25)
[2018-10-25] MEDS: AMLODIPINE 10 MG TAB PO SCH (14:04)
[2018-10-25 14:32] VITALS: BP 130/66; PULSE 80; RESP 18
[2018-10-25] MEDS: traMADol 50 MG TAB PO PRN (16:17)
[2018-10-25 20:59] VITALS: BP 122/58; PULSE 82; RESP 20
[2018-10-26] MEDS: traMADol 50 MG TAB PO PRN ×3 (00:08→21:37)
[2018-10-26 00:37] VITALS: BP 126/60; PULSE 80; RESP 17
[2018-10-26] MEDS: KETOROLAC 15 MG INJ IV PRN ×2 (01:49→10:48)
[2018-10-26] MEDS: PANTOPRAZOLE (EC) 40 MG TAB PO SCH (05:51)
[2018-10-26 08:30] VITALS: BP 130/60; PULSE 68; RESP 18
[2018-10-26] MEDS: DOCUSATE SODIUM 100 MG CAP PO SCH ×2 (08:58→20:28)
[2018-10-26] MEDS: CELECOXIB 100 MG CAP PO SCH ×2 (08:59→20:28)
[2018-10-26] MEDS: AMLODIPINE 10 MG TAB PO SCH (08:59)
[2018-10-26] MEDS: ASPIRIN (EC) 81 MG TAB PO SCH ×2 (08:59→20:28)
[2018-10-26] MEDS: GABAPENTIN 100 MG CAP PO SCH ×3 (08:59→20:28)
[2018-10-26 14:57] VITALS: BP 137/62; PULSE 81; RESP 18
[2018-10-26] MEDS ORDERED: POTASSIUM CHLORIDE (SR) 20 MEQ TAB PO STA (16:12)
[2018-10-26] MEDS: oxyCODONE 5 MG TAB PO PRN (19:07)
[2018-10-26 20:18] VITALS: BP 146/76; PULSE 88; RESP 20
[2018-10-27] MEDS: oxyCODONE 5 MG TAB PO PRN ×2 (01:13→09:09)
[2018-10-27 02:00] VITALS: BP 138/75; PULSE 82; RESP 17
[2018-10-27] MEDS: KETOROLAC 15 MG INJ IV PRN (02:06)
[2018-10-27] MEDS: PANTOPRAZOLE (EC) 40 MG TAB PO SCH (06:29)
[2018-10-27] MEDS: traMADol 50 MG TAB PO PRN (06:29)
[2018-10-27 07:40] VITALS: BP 108/55; PULSE 67; RESP 14
[2018-10-27] MEDS: ASPIRIN (EC) 81 MG TAB PO SCH (09:06)
[2018-10-27] MEDS: CELECOXIB 100 MG CAP PO SCH (09:06)
[2018-10-27] MEDS: GABAPENTIN 100 MG CAP PO SCH ×3 (09:06→13:14)
[2018-10-27] MEDS: AMLODIPINE 10 MG TAB PO SCH (09:06)
[2018-10-27] MEDS: DOCUSATE SODIUM 100 MG CAP PO SCH (09:06)
== END 2018-10-27 13:38 | disposition home or self-care (01) | DRG 470 ==
LOC: REC 06:51 → MS1 14:24
PROVIDERS: ADMIT Orthopaedic Surgery Adult Reconstructive Orthopaedic Surgery; ATTEND Orthopaedic Surgery Adult Reconstructive Orthopaedic Surgery
PROC: 0SRC069 Replacement of Right Knee Joint with Oxidized Zirconium on Polyethylene Synthetic Substitute, Cemented, Open Approach (ICD-10-PCS; principal; 2018-10-24 10:30)
DX: M17.11 Unilateral primary osteoarthritis, right knee (principal); Z68.42 Body mass index [BMI] 45.0-49.9, adult; I10 Essential (primary) hypertension; J45.909 Unspecified asthma, uncomplicated; E66.9 Obesity, unspecified; F41.9 Anxiety disorder, unspecified; F32.9 Major depressive disorder, single episode, unspecified; E87.5 Hyperkalemia
CPT/HCPCS: 73560; 80048; 83735; 85025; 88304; 88311; 97116; 97161; 97530; C1713; C1776; J0171; J0690; J0735; J1100; J1170; J1885; J2250; J2274; J2405; J2543; J2765; J2795; J3370